=== PATIENT | female | born 1940 | race Caucasian/White ===

== ENCOUNTER → 2017-05-29 14:07 | Outpatient (CLI) | payer MEDICARE, SELFPAY ==
[2017-05-29 15:50] LABS: Absolute Lymphocyte Count 1.44 X10^3/ul (0.83-4.51); Absolute Neutrophil Count 3.7 X10^3/uL (2.0-7.7); Basophil# 0.01 X10^3/uL; Basophil% 0.2 % (0-1); Eosinophil# 0.15 X10^3/uL; Eosinophils% 2.6 % (0-5); Hematocrit 40.9 % (37-47); Hemoglobin 12.7 g/dl (12.0-15.0); Lymphocyte # 1.44 X10^3/ul (4.0); Lymphocyte % 24.9 % (19-41); Mean Corp Hgb Conc 31.1 g/gl (32-36); Mean Corpuscular Hgb 28.7 pg (27.0-32.0); Mean Corpuscular Volume 92.5 fL (81-99); Mean Platelet Vol. 10.8 fl (6.2-12.0); Monocyte# 0.45 X10^3/uL; Monocyte% 7.8 % (0-10); Neutrophil # 3.73 X10^3/uL (2.7-7.7); Neutrophil % 64.5 % (47-70); Platelet Count 211 K/mm3 (150-450); RBC Distribution Width CV 13.1 % (11.6-14.6); RBC Distribution Width SD 43.9 fl (35.1-43.9); Red Blood Count 4.42 M/mm3 (4.2-5.4); White Blood Count 5.8 K/mm3 (4.4-11.0)
[2017-05-29 16:04] LABS: POSITIVE COUNT NO; POSITIVE DIFFERENTIAL NO; POSITIVE MORPHOLOGY NO
[2017-05-29 16:14] LABS: Anion Gap 6 (5-15); BUN 30 mg/dL (7-18); BUN/Creat Ratio 48.5 RATIO (10-20); Calcium,Total 8.9 mg/dL (8.5-10.1); Chloride 104 mmol/L (98-107); Creatinine, Serum 0.62 mg/dL (0.55-1.02); EST Glomerular Filtration Rate 100 mL/min (>60); Est Glom Filt Rate - Afr Amer 121 mL/min (>60); Ferritin 23 ng/mL (8-252); Glucose 94 mg/dL (74-106); Iron 70 ug/dL (50-170); Potassium 3.7 mmol/L (3.5-5.1); Sodium Level 140 mmol/L (136-145); T4 Free Direct 1.01 ng/dL (0.76-1.46)
== END ==
PROVIDERS: Family Provider Family Medicine; PCP Family Medicine; Visit Provider Family Medicine
DX: E03.9 Hypothyroidism, unspecified (principal); D64.9 Anemia, unspecified; E87.6 Hypokalemia; I10 Essential (primary) hypertension
CPT/HCPCS: 36415; 80048; 82728; 83540; 84439; 84443; 85025

== ENCOUNTER → 2017-06-04 08:12 | Outpatient (CLI) | payer MEDICARE, SELFPAY ==
--- NOTE | 2017-06-04 08:13 | NM_ITS ---
CLINICAL: 76-year-old female with reported history of traumatic fall and painful left foot. LIMITED 99m Tc MDP THREE PHASE BONE SCINTIGRAPHY COMPARISON: None available FINDINGS: Following the intravenous administration of 21.0 mCi of 99m Tc MDP, three-phase bone acquisitions of the distal lower extremities reveal: 1. The flow and immediate static blood pool acquisitions demonstrate arterial and venous phase hyperemia manifest in the region of the medial compartment of the left midfoot. 2. Delayed images depict focal increased tracer concentration noted in the region of the first cuneiform tarsal bone of the left midfoot correlating with the flow and blood pool changes. 3. Enhanced uptake is defined in the lateral compartment of the right midfoot on delayed projections in the distribution of the cuboid tarsal bone and to lesser extent first metatarsal-phalangeal articulation of the right forefoot, the interphalangeal articulation of the first digit of the left forefoot, distal interphalangeal articulation of the left forefoot, lateral compartment of the left ankle, third cuneiform and cuboid tarsal bones of the left midfoot. 4. The remaining limited skeletal structures are scintigraphically unremarkable. NM/Bone Scan Three Phase IMPRESSION: 1. The increase in radiopharmaceutical concentration identified in the region of the first cuneiform tarsal bone of the left midfoot on the flow, blood pool and delayed acquisitions is consistent with trauma-fracture and/or traumatic synovial inflammation. 2. 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 Previous trauma-fracture may be another explanation for uptake in the right midfoot-cuboid tarsal bone secondary to the intensity of uptake. Electronically Signed: Mahendra Herrmann DO at 11:43 EST Tel , Service support ,
== END ==
PROVIDERS: Family Provider Family Medicine; PCP Family Medicine; Visit Provider Family Medicine
DX: M79.672 Pain in left foot (principal)
CPT/HCPCS: 78315

== ENCOUNTER 2017-06-07 00:49 | Emergency (ER) | payer MEDICARE, SELFPAY ==
[2017-06-07 00:51] VITALS: BP 132/80; PULSE 86; RESP 18; TEMP 36.9; O2SAT 99; BMI 37.5
--- NOTE | 2017-06-07 01:14 | ED.VISSUMM ---
- ER Visit Summary Date of Service: 06/07/17 Chief Complaint: Left foot pain History of Present Illness: The patient is a [address] Gamboa and Yeyo Benitez. She reports that she has left foot pain began approximately 3 months ago. It is a sharp, stabbing pain that is 10 out of 10 severity. Is worsened by movement and walking. States that it is unrelieved by Tylenol. When asked about his paresthesias in the area she reports just a tad.. States that she has had x-rays and had a bone density test yesterday. No personal or family history of DVT. No calf pain. No ankle swelling. No chest pain. Physical Examination: Vitals: Stable. Afebrile. General: Well-nourished and well-developed. Head: Normocephalic atraumatic. Neck: Supple, no lymphadenopathy. No JVD. Nontender. Cardiovascular: Regular rate and rhythm. No murmurs. Respiratory: No respiratory distress. Clear to auscultation bilaterally. Abdominal: Soft, nontender, nondistended, normal bowel sounds. No guarding, rebound, or peritoneal signs. Back: Nontender. Extremities: Mild tenderness palpation to the medial side of her foot. No rash. No swelling. No edema. Calf tenderness. 2+ dorsalis pedis pulse. Skin: Normal color, no rash. Neurologic: Alert and oriented ?3. Cranial nerves II through XII are intact. Normal strength and sensation. Psych: Normal affect. Emergency Department Course and Treatment: Patient was treated with [place]. This time I do not think a lower extremity Doppler is indicated. Treatment Plan: She will be discharged with [place] and Colace. Instructed to follow-up Dr. Gamboa and/or Dr. Daugherty this week for further evaluation. Return to the emergency department for any worsening symptoms. Disposition: To home in improved and stable condition. Impression: 1. Chronic left foot pain. This note was generated with [employer] dictation software. It may contain incorrect words, spelling, and punctuation that were not noted in review of the chart prior to signing ED Disposition - Plan for ED Patient: Disposition: Home or Assisted Living Chief Complaint: Lower Extremity Injury Instructions: What Is Peripheral Neuropathy? Prescriptions: Hydrocodone Bitart/Apap 5-325 [[place] 5/325] 1 - 2 tablet PO Q4H PRN PRN 3 Days #20 tablet PRN Reason: Pain Docusate Sodium [[place]ace] 100 mg PO DAILY #20 capsule Referrals: Mc Denise MD [Primary Care Provider] - 1-2 Days if not improving Nimo Daugherty DPM [STAFF PHYSICIAN] - As soon as possible
--- NOTE | 2017-06-07 01:18 | ED.DCSUM_ITS ---
- ER Visit Summary Date of Service: 06/07/17 Chief Complaint: Left foot pain History of Present Illness: The patient is a [address] Gamboa and Yeyo Benitez. She reports that she has left foot pain began approximately 3 months ago. It is a sharp, stabbing pain that is 10 out of 10 severity. Is worsened by movement and walking. States that it is unrelieved by Tylenol. When asked about his paresthesias in the area she reports just a tad.. States that she has had x-rays and had a bone density test yesterday. No personal or family history of DVT. No calf pain. No ankle swelling. No chest pain. Physical Examination: Vitals: Stable. Afebrile. General: Well-nourished and well-developed. Head: Normocephalic atraumatic. Neck: Supple, no lymphadenopathy. No JVD. Nontender. Cardiovascular: Regular rate and rhythm. No murmurs. Respiratory: No respiratory distress. Clear to auscultation bilaterally. Abdominal: Soft, nontender, nondistended, normal bowel sounds. No guarding, rebound, or peritoneal signs. Back: Nontender. Extremities: Mild tenderness palpation to the medial side of her foot. No rash. No swelling. No edema. Calf tenderness. 2+ dorsalis pedis pulse. Skin: Normal color, no rash. Neurologic: Alert and oriented ?3. Cranial nerves II through XII are intact. Normal strength and sensation. Psych: Normal affect. Emergency Department Course and Treatment: Patient was treated with [place]. This time I do not think a lower extremity Doppler is indicated. Treatment Plan: She will be discharged with [place] and Colace. Instructed to follow-up Dr. Gamboa and/or Dr. Daugherty this week for further evaluation. Return to the emergency department for any worsening symptoms. Disposition: To home in improved and stable condition. Impression: 1. Chronic left foot pain. This note was generated with [employer] dictation software. It may contain incorrect words, spelling, and punctuation that were not noted in review of the chart prior to signing ED Disposition - Plan for ED Patient: Disposition: Home or Assisted Living Chief Complaint: Lower Extremity Injury Instructions: What Is Peripheral Neuropathy? Prescriptions: Hydrocodone Bitart/Apap 5-325 [[place] 5/325] 1 - 2 tablet PO Q4H PRN PRN 3 Days # 20 tablet PRN Reason: Pain Docusate Sodium [[place]ace] 100 mg PO DAILY #20 capsule Referrals: Mc Denise MD [Primary Care Provider] - 1-2 Days if not improving Nimo Daugherty DPM [STAFF PHYSICIAN] - As soon as possible
[2017-06-07 01:30] VITALS: BP 126/75; PULSE 80; RESP 17; O2SAT 99
[2017-06-07] MEDS: HYDROcodone Bitartrate/Apap 5/325 Tablet PO ×2 (01:58)
[2017-06-07 02:09] VITALS: BP 130/45; PULSE 80; RESP 18; O2SAT 98
== END 2017-06-07 02:10 | disposition home or self-care (01) ==
LOC: ED 01:15
PROVIDERS: Emergency Provider Emergency Medicine; Family Provider Family Medicine; PCP Family Medicine
DX: M79.672 Pain in left foot (principal); G89.29 Other chronic pain; R20.2 Paresthesia of skin; R11.0 Nausea; I25.10 Atherosclerotic heart disease of native coronary artery without angina pectoris; I10 Essential (primary) hypertension; E78.00 Pure hypercholesterolemia, unspecified; G62.9 Polyneuropathy, unspecified; Z79.01 Long term (current) use of anticoagulants; Z79.899 Other long term (current) drug therapy
CPT/HCPCS: 99283

== ENCOUNTER → 2017-06-29 09:47 | Outpatient (CLI) | payer MEDICARE, SELFPAY ==
--- NOTE | 2017-06-29 09:56 | MRI_ITS ---
STUDY: MRI LEFT ANKLE WITHOUT CONTRAST REASON FOR EXAM: Female, 76 years old. Medial ankle pain with swelling x3 months which is accentuated by weightbearing. TECHNIQUE: Standardized fat and water weighted pulse sequences were obtained in all 3 orthogonal planes. COMPARISON: None. FINDINGS: There is edema extending along the anterior aspect of the distal tibia and dorsal medial mid foot region. There is a complete rupture of the tibialis anterior tendon which is detached from its distal insertion and a cephalad retracted approximately 48 mm. There is severe tendinosis, intrasubstance degeneration, with a mop end morphology of the torn retracted tendon edge (axial STIR series 11, image 6). Normal extensor hallucis longus tendon. Normal extensor digitorum longus tendons. There is also morphology of the posterior tibialis tendon with elongation in the anterior dimension and narrowing in the transverse dimension consistent with tendinosis and tenosynovitis. Normal flexor digitorum longus tendon. Normal flexor hallucis longus tendon. Normal peroneus longus and brevis tendons. Normal Achilles tendon and teno-osseous insertion. There is a 6 mm enthesophyte at the teno-osseous insertion of the Achilles tendon. There is fusiform thickening of the central cord of the plantar fascia, without a plantar fasciitis or plantar fascial tear, consistent with plantar fascial degeneration (sagittal T1 series 9, image 11). Normal plantar calcaneal tubercles. Normal intrinsic muscles of the rearfoot. Normal distal tibiofibular syndesmotic ligamentous complex. There is scarring with thickening of the anterior talofibular ligament consistent with a remote sprain. Normal subtalar ligaments and sinus tarsi. Normal deltoid ligamentous complexes. Normal plantar calcaneonavicular (spring) ligament. Normal tibiotalar articulation. Normal talar dome. Normal subtalar articulations. There is a joint effusion of the talonavicular articulation with capsular distension. Normal calcaneocuboid articulation. Normal navicular-cuneiform articulations. MRI/Lower Ext Joint Only (Routine) IMPRESSION: 1. Complete rupture of the distal insertion of tibialis anterior tendon which is cephalad retracted approximately 40 mm with severe tendinosis, intrasubstance degeneration with a mop end morphology. 2. Posterior tibialis tendinosis and tenosynovitis. 3. Enthesophyte at the teno-osseous insertion of Achilles tendon. 4. Plantar fascial degeneration with fusiform thickening. 5. Scarring of the anterior talofibular ligament consistent with a remote ankle sprain. 6. Talonavicular joint effusion. Electronically Signed: Thierry Darling DO at 11:56 EST Tel , Service support ,
== END ==
PROVIDERS: Family Provider Family Medicine; PCP Family Medicine; Visit Provider Podiatrist
DX: S86.212A Strain of muscle(s) and tendon(s) of anterior muscle group at lower leg level, left leg, initial encounter (principal); X58.XXXA Exposure to other specified factors, initial encounter
CPT/HCPCS: 73721

== ENCOUNTER → 2017-07-10 13:06 | Outpatient (CLI) | payer MEDICARE, SELFPAY ==
[2017-07-10 13:29] LABS: Anion Gap 6 (5-15); BUN 26 mg/dL (7-18); BUN/Creat Ratio 36.5 RATIO (10-20); Calcium,Total 8.9 mg/dL (8.5-10.1); Chloride 107 mmol/L (98-107); Creatinine, Serum 0.71 mg/dL (0.55-1.02); EST Glomerular Filtration Rate 85 mL/min (>60); Est Glom Filt Rate - Afr Amer 102 mL/min (>60); Glucose 120 mg/dL (74-106); Potassium 4.4 mmol/L (3.5-5.1); Sodium Level 143 mmol/L (136-145)
== END ==
PROVIDERS: Family Provider Family Medicine; PCP Family Medicine; Visit Provider Internal Medicine Cardiovascular Disease
DX: I25.10 Atherosclerotic heart disease of native coronary artery without angina pectoris (principal); E87.6 Hypokalemia
CPT/HCPCS: 80048

== ENCOUNTER → 2017-12-31 13:50 | Outpatient (CLI) | payer MEDICARE, SELFPAY | PROVIDERS: Visit Provider Family Medicine | DX: N39.0 Urinary tract infection, site not specified (principal) | CPT/HCPCS: 87086; 87088 ==

== ENCOUNTER → 2018-04-09 10:50 | Outpatient (CLI) | payer MEDICARE, SELFPAY ==
[2018-04-09 12:48] LABS: Absolute Lymphocyte Count 1.24 X10^3/ul (0.83-4.51); Absolute Neutrophil Count 3.2 X10^3/uL (2.0-7.7); Basophil# 0.01 X10^3/uL; Basophil% 0.2 % (0-1); Eosinophil# 0.11 X10^3/uL; Eosinophils% 2.2 % (0-5); Hematocrit 41.5 % (37-47); Hemoglobin 13.4 g/dl (12.0-15.0); Lymphocyte # 1.24 X10^3/ul (4.0); Lymphocyte % 25.1 % (19-41); Mean Corp Hgb Conc 32.3 g/gl (32-36); Mean Corpuscular Hgb 30.3 pg (27.0-32.0); Mean Corpuscular Volume 93.9 fL (81-99); Monocyte# 0.42 X10^3/uL; Monocyte% 8.5 % (0-10); Neutrophil # 3.15 X10^3/uL (2.7-7.7); Neutrophil % 63.8 % (47-70); Platelet Count 207 K/mm3 (150-450); RBC Distribution Width CV 12.7 % (11.6-14.6); RBC Distribution Width SD 42.3 fl (35.1-43.9); Red Blood Count 4.42 M/mm3 (4.2-5.4); White Blood Count 4.9 K/mm3 (4.4-11.0)
[2018-04-09 13:02] LABS: POSITIVE COUNT NO; POSITIVE DIFFERENTIAL NO; POSITIVE MORPHOLOGY NO
[2018-04-09 14:10] LABS: Vitamin B12 356 pg/mL (211-911)
[2018-04-09 14:14] LABS: Anion Gap 9 (5-15); BUN 18 mg/dL (7-18); BUN/Creat Ratio 23.9 RATIO (10-20); Chloride 101 mmol/L (98-107); Creatinine, Serum 0.75 mg/dL (0.55-1.02); EST Glomerular Filtration Rate 79 mL/min (>60); Est Glom Filt Rate - Afr Amer 96 mL/min (>60); Glucose 97 mg/dL (74-106); Potassium 3.7 mmol/L (3.5-5.1); Sodium Level 140 mmol/L (136-145); T4 Free Direct 1.19 ng/dL (0.76-1.46); Thyroid Stim Hormone (TSH) 1.33 uIU/mL (0.358-3.74)
== END ==
PROVIDERS: Family Provider Family Medicine; PCP Family Medicine; Visit Provider Family Medicine
DX: R41.3 Other amnesia (principal); E03.9 Hypothyroidism, unspecified; E87.6 Hypokalemia; I10 Essential (primary) hypertension
CPT/HCPCS: 36415; 80048; 82607; 84439; 84443; 85025

== ENCOUNTER → 2018-05-21 10:44 | Outpatient (CLI) | payer MEDICARE, SELFPAY ==
--- NOTE | 2018-05-21 10:49 | BI_ITS ---
MAMMOGRAPHY - BILATERAL SCREENING REASON FOR EXAM: Female, 77 years old. Routine annual screening examination. PERTINENT HISTORY: Non-contributory. TECHNIQUE: Digital bilateral breast nacni (3D mammographic acquisition) in the CC and MLO projections. 2-D mediolateral oblique (MLO) and craniocaudad (CC) views of both breasts were obtained. CAD: Full Field Digital Mammography with Computer Added Detection was performed. COMPARISON: Comparison is made with prior study dated March 13, 2017. FINDINGS: Breast Composition: The breasts are almost entirely fatty. There are no dominant masses or suspicious calcifications. Stable 5 mm well-defined nodule in the axillary region of the right breast suggestive of a small lymph node. No other significant abnormalities are identified. There has been no significant change since the prior study. BI/SCREENING MAMM (CAD), BILAT IMPRESSION: Stable bilateral screening mammogram. Yearly follow-up mammogram recommended. (A) ASSESSMENT CATEGORY: BIRADS Category 2: Benign. A letter regarding these results will be sent to the patient by the facility within 30 days. Approximately 10% of breast cancers are not detected by mammography. A normal mammogram should not delay biopsy of a clinically suspicious abnormality. [id number] Electronically Signed: Pardeep Long MD at 13:30 EST , Service support ,
== END ==
PROVIDERS: Family Provider Family Medicine; PCP Family Medicine; Referring Provider Family Medicine; Visit Provider Family Medicine
DX: Z12.31 Encounter for screening mammogram for malignant neoplasm of breast (principal)
CPT/HCPCS: 77063; 77067

== ENCOUNTER → 2018-06-28 14:48 | Outpatient (CLI) | payer MEDICARE, SELFPAY ==
--- NOTE | 2018-06-28 14:55 | RAD_ITS ---
STUDY: X-RAY - THORACIC SPINE REASON FOR EXAM: Female, 77 years old. Fall TECHNIQUE: 4 view(s) of the thoracic spine were obtained. COMPARISON: None. FINDINGS: There is no evidence of fracture or dislocation in the thoracic spine. The vertebral body heights are well-maintained. There are mild degenerative changes. RAD/Thoracic Spine 3 Views IMPRESSION: No fracture or dislocation in the thoracic spine. Mild degenerative change. Electronically Signed: Lorenzo Rojas, at 15:30 EST Tel , Service support ,
--- NOTE | 2018-06-28 15:05 | RAD_ITS ---
STUDY: X-RAY - LUMBAR SPINE REASON FOR EXAM: Female, 77 years old. Fall TECHNIQUE: 3 view(s) of the lumbar spine were obtained. COMPARISON: None FINDINGS: There is no evidence of fracture or dislocation in the lumbar spine. The vertebral body heights are well-maintained. There are mild degenerative changes in the lower lumbar spine with disc space narrowing and facet hypertrophy. RAD/Lumbar Spine 2 or 3 Views IMPRESSION: No fracture or dislocation in the lumbar spine. Mild degenerative changes in the lower lumbar spine. Electronically Signed: Lorenzo Rojas, at 15:31 EST Tel , Service support ,
== END ==
PROVIDERS: Family Provider Family Medicine; PCP Family Medicine; Referring Provider Anesthesiology Pain Medicine; Visit Provider Anesthesiology Pain Medicine
DX: M54.9 Dorsalgia, unspecified (principal); W19.XXXA Unspecified fall, initial encounter
CPT/HCPCS: 72072; 72100

== ENCOUNTER → 2018-12-07 | Outpatient (CLI) | payer MEDICARE, SELFPAY ==
[2018-12-07 17:34] LABS: Absolute Lymphocyte Count 1.73 X10^3/uL (0.83-4.51); Absolute Neutrophil Count 2.6 X10^3/uL (2.0-7.7); Basophil# 0.01 X10^3/uL; Basophil% 0.2 % (0-1); Eosinophil# 0.13 X10^3/uL; Eosinophils% 2.6 % (0-5); Hemoglobin 13.5 g/dL (12.0-15.0); Lymphocyte # 1.73 X10^3/ul (4.0); Lymphocyte % 34.4 % (19-41); Mean Corp Hgb Conc 32.1 g/dL (32-36); Mean Corpuscular Hgb 29.9 pg (27.0-32.0); Mean Corpuscular Volume 92.9 fL (81-99); Mean Platelet Vol. 11.8 fl (6.2-12.0); Monocyte# 0.51 X10^3/uL; Monocyte% 10.1 % (0-10); NRBC Flagged by Analyzer 0 % (0-5); Neutrophil # 2.64 X10^3/uL (2.7-7.7); Neutrophil % 52.5 % (47-70); Platelet Count 190 K/mm3 (150-450); RBC Distribution Width CV 12.4 % (11.6-14.6); RBC Distribution Width SD 42.5 fl (35.1-43.9); Red Blood Count 4.52 M/mm3 (4.2-5.4)
[2018-12-07 17:58] LABS: ALB/GLOB Ratio 0.9 RATIO (0.9-2.4); AST(SGOT) 29 U/L (15-37); Alanine Aminotransfer ALT/SGPT 33 U/L (13-56); Albumin, Serum 3.4 g/dL (3.2-5.0); Alkaline Phosphatase 106 U/L (45-117); Anion Gap 9 (5-15); BUN 25 mg/dL (7-18); BUN/Creat Ratio 30.2 RATIO (10-20); Calcium,Total 9.2 mg/dL (8.5-10.1); Chloride 103 mmol/L (98-107); Creatinine, Serum 0.83 mg/dL (0.55-1.02); EST Glomerular Filtration Rate 71 mL/min (>60); Est Glom Filt Rate - Afr Amer 86 mL/min (>60); Globulin 3.9 g/dL (2.2-4.2); Glucose 101 mg/dL (74-106); Potassium 3.7 mmol/L (3.5-5.1); Protein, Total 7.3 g/dL (6.4-8.2); Sodium Level 140 mmol/L (136-145); T4 Free Direct 1.25 ng/dL (0.76-1.46); Vitamin B12 530 pg/mL (211-911)
== END | disposition home or self-care (01) ==
LOC: BFHLAB 15:29
PROVIDERS: Family Provider Family Medicine; PCP Family Medicine; Visit Provider Family Medicine
DX: E03.9 Hypothyroidism, unspecified (principal); I10 Essential (primary) hypertension; R60.9 Edema, unspecified; G62.9 Polyneuropathy, unspecified
CPT/HCPCS: 36415; 80053; 82607; 84439; 84443; 85025

== ENCOUNTER 2019-08-04 15:07 | Emergency (ER) | payer MEDICARE, SELFPAY ==
[2019-08-04 15:08] VITALS: BP 147/89; PULSE 97; RESP 16; TEMP 36.6; O2SAT 99; BMI 38.1
--- NOTE | 2019-08-04 15:17 | EKG12_ITS ---
Test Reason : CONFUSION Blood Pressure : / mmHG Vent. Rate : 093 BPM Atrial Rate : 093 BPM P-R Int : 172 ms QRS Dur : 078 ms QT Int : 368 ms P-R-T Axes : 074 -38 076 degrees QTc Int : 457 ms Sinus rhythm with occasional Premature ventricular complexes Left axis deviation Septal infarct , age undetermined Abnormal ECG Confirmed by JULIET SANCHEZ, BERENICE ([id number]), make up editor BOB TINSLEY ([id number]) on 08/08/2019 8:33:55 AM Referred By: MERY Confirmed By:BERENICE CHUNG MD
[2019-08-04 15:30] VITALS: O2SAT 96
--- NOTE | 2019-08-04 15:32 | CT_ITS ---
STUDY: CT BRAIN WITHOUT CONTRAST REASON FOR EXAM: Female, 79 years old. CONFUSION-SENT BY PCP HALLUCINATIONS/FALLS RADIATION DOSAGE (If Supplied By Facility): CTDIvol = ( 44.99 ) mGy, DLP = ( 762.36 ) mGycm TECHNIQUE: Transaxial CT imaging of the brain was performed without administration of intravenous contrast material. Individualized dose optimization techniques were used for this CT. COMPARISON: Prior study of 11/30/2016 FINDINGS: Normal soft tissue structures. Normal calvarium. There is mild cerebral atrophy with widening of the extra-axial spaces and ventricular dilatation. There are areas of decreased attenuation within the white matter tracts of the supratentorial brain, consistent with microvascular disease changes. Normal basal ganglia and thalami. Normal brainstem. Normal cerebellum. There is no intracranial hemorrhage. There are no findings of an acute ischemic infarction. Normal visualized paranasal sinuses. CT/Brain/Head without Contrast IMPRESSION: Chronic involutional changes of the brain. Electronically Signed: Carmine Brennan MD at 16:37 EDT , Service support ,
[2019-08-04] MEDS: 0.9% Normal Saline 1,000 ML 150 ML IV (15:33)
--- NOTE | 2019-08-04 15:33 | ED.VIS.GEN ---
History of Present Illness Chief Complaint: Confusion Informant: Patient Onset: Month(s) Maximum Severity: Mild Narrative: National coronavirus emergency in effect patient no exposures Patient complains for a month or so she has been hallucinating seeing rabbits on her porch that are not there not there other strange things in the home that are not there she lives with her son, she indicates these hallucinations seem visual. They can occur at any point in the day, they come and go, she has had them for a month at least possibly more, she has no headache numbness weakness paresthesias chest pain abdominal pain she is eating and drinking well no fever no cough no shortness of breath, she spoke with her physicians today and was asked to come in for evaluation. 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 does not recall recently falling and hitting her head, she is able to basically wake dress herself execute normal daily activities on a routine fashion, she is oriented x3 she knows the date the year the president the [facility] she is smiling and laughing as she gives a history she denies any complaints at this time Past Medical History - Allergies and Home Meds Allergies/Adverse Reactions: Allergies tramadol [From Ultram] Adverse Reaction (Verified 08/04/19 15:11) Other BEE STINGS Allergy (Severe, Uncoded 08/04/19 15:11) Anaphylaxis Primary Care Physician: Mc Denise MD [Primary Care Provider] - Past Medical History: - - Hypothyroidism and as above Surgical History: appendectomy, hysterectomy - Partial, total knee arthroplasty, tonsillectomy - Tonsillectomy was performed in childhood., - - Lumbar laminectomy, 4 years ago. History of cardiac stent placement. Left total knee replacement June 2014. She also has undergone umbilical hernia repair, hysterectomy, tonsillectomy, and hemorrhoidectomy. Smoking Status: Never smoker - Family History Paternal Family History: Reports: - - , heart disease Maternal Family History: Reports: - - , Alzheimer's disease, age 81. The patient's father at age of 47 from a myocardial infarction. Review of Systems General: Denies: Chills, Fever, Sweats Eyes: Denies: Visual changes - bilaterally, Diplopia ENT: Denies: Rhinorrhea, Sore throat Cardiovascular: Denies: Chest pain, Palpitations Respiratory: Denies: Dyspnea, Cough, Dyspnea on exertion Gastrointestinal: Denies: Abdominal pain, Nausea, Vomiting, Diarrhea, Melena, Hematochezia Genitourinary: Denies: Dysuria, Hematuria, Frequency Musculoskeletal: Denies: Back pain, Extremity Pain Skin: Denies: Rash, Wounds Neurological: Reports: Numbness. Denies: Headache, Weakness Physical Exam Vital Signs/Narrative: Vital Signs Temp Pulse Resp BP Pulse Ox 08/04/19 15:30 96 08/04/19 15:08 97.8 F 97 16 147/89 H 99 General: Well nourished, Well developed, No Acute Distress Head: Normocephalic, Atraumatic Eyes: Perrl, EOMI ENT: Moist mucous membranes, No rhinorrhea Neck: Supple, Nontender Cardiovascular: Regular rate, Regular rhythm, No murmurs Respiratory: No distress, CTA bilaterally, Chest nontender Abdomen: Soft, Nontender, Nondistended, Normal bowel sounds Back: Nontender, Normal Inspection Extremities: Nontender, No edema Skin: Normal color, No rash Neurological: Alert, Oriented x3, Cranial nerves II-XII grossly intact, Normal Strength, Normal Sensation, - - Her NIH is 0 she is awake alert answering questions appropriately there is no hallucinations now nothing seems to trigger these visual hallucinations, she indicates she is been feeling well otherwise this is been going on for about a month she indicates he is able to execute all of her daily activities Psychological: Normal affect, Normal Mood Diagnostic/Tx/Re-eval - Medical Decision Making Differentials extensive given all the above screening labs UA CT scan, her vitals are unremarkable she assures that she feels at baseline now EKG shows a sinus rhythm some PVCs rate of about 90 no acute injury pattern intervals within normal range, chest x-ray head CT all labs are unremarkable, had the symptoms for a month she is awake alert now that her intermittent we discussed inpatient versus outpatient management discussed all the above with her at this time he is comfortable discharge home following up with her outpatient providers in the next few days Home stable Final impression intermittent confusional episodes etiology unclear ED Disposition - Plan for ED Patient: Diagnosis: Confusion Instructions: ED Confusion Referrals: Mc Denise MD [Primary Care Provider] -
[2019-08-04 15:44] LABS: Absolute Lymphocyte Count 1.81 X10^3/uL (0.83-4.51); Absolute Neutrophil Count 2.6 X10^3/uL (2.0-7.7); Basophil# 0.01 X10^3/uL; Basophil% 0.2 % (0-1); Eosinophil# 0.21 X10^3/uL; Eosinophils% 4.1 % (0-5); Hematocrit 41.4 % (37-47); Hemoglobin 13.4 g/dL (12.0-15.0); Lymphocyte # 1.81 X10^3/ul (4.0); Lymphocyte % 35.1 % (19-41); Mean Corp Hgb Conc 32.4 g/dL (32-36); Mean Corpuscular Hgb 29.5 pg (27.0-32.0); Mean Platelet Vol. 10.4 fl (6.2-12.0); Monocyte% 9.7 % (0-10); NRBC Flagged by Analyzer 0 % (0-5); Neutrophil % 50.5 % (47-70); Platelet Count 182 K/mm3 (150-450); RBC Distribution Width CV 12.6 % (11.6-14.6); RBC Distribution Width SD 41.5 fl (35.1-43.9); Red Blood Count 4.55 M/mm3 (4.2-5.4); White Blood Count 5.2 K/mm3 (4.4-11.0)
[2019-08-04 16:07] LABS: Mucous, Urine 0 SEEN /hpf (<or=2+)
[2019-08-04 16:15] LABS: Anion Gap 4 (5-15); BUN 28 mg/dL (7-18); BUN/Creat Ratio 37.4 RATIO (10-20); Calcium,Total 9.1 mg/dL (8.5-10.1); Chloride 106 mmol/L (98-107); Creatinine, Serum 0.75 mg/dL (0.55-1.02); EST Glomerular Filtration Rate 80 mL/min (>60); Est Glom Filt Rate - Afr Amer 96 mL/min (>60); Estimated Creatinine Clearance 41.72 ml/min; Glucose 93 mg/dL (74-106); Potassium 3.1 mmol/L (3.5-5.1); Sodium Level 140 mmol/L (136-145)
--- NOTE | 2019-08-04 16:22 | RAD_ITS ---
STUDY: X-RAY CHEST REASON FOR EXAM: Female, 79 years old. confusion. no chest complaint TECHNIQUE: AP portable COMPARISON: January 13, 2017 FINDINGS: There is minor scarring at the left base. No acute infiltration is observed There is no demonstrated pleural abnormality. Normal size heart. Normal mediastinum and judith. Normal visualized pulmonary arteries. Mildly calcified aortic arch and descending thoracic aorta. Dorsal spine and shoulders demonstrate mild degenerative change Normal visualized ribs, clavicles, and shoulders. There is no demonstrated abnormality of the visualized soft tissue structures of the upper abdomen. No significant changes since prior exam RAD/Chest 1 View (Portable) IMPRESSION: No acute cardiopulmonary pathology Electronically Signed: Jorge L Aponte MD at 16:36 EDT , Service support ,
[2019-08-04 16:38] VITALS: BP 124/93; PULSE 88; RESP 14; O2SAT 99
[2019-08-04 16:43] LABS: Color, Urine Yellow (Yellow); Glucose, Dipstick Normal (Normal); Ketone-Dipstick 5 mg/dl (Negative); Urine Bilirubin Dipstick Negative (Negative); Urine Clarity Cloudy (Clear)
[2019-08-04 16:44] LABS: Leukocyte Esterase-Dipstick 500 /ul (Negative); Nitrite-Dipstick NEGATIVE (Negative); Occult Blood-Urine 25 /ul (Negative); Protein-Dipstick 30 mg/dl (Negative); Urine Urobilinogen Normal (Normal)
[2019-08-04 17:01] LABS: Squamous Epithelial Cells - UA 25-50 SEEN /hpf (5-10)
[2019-08-04 17:02] LABS: Bacteria 2+ /hpf (None Seen); Transitional Epithelial - Ur 0-5 SEEN /hpf (0-5); White Blood Cells 50-100 SEEN /hpf (0-5)
[2019-08-04 17:03] LABS: Red Blood Cells-Urine 0-5 SEEN /hpf (0-5)
[2019-08-04 17:33] VITALS: BP 136/95; PULSE 85; RESP 22; O2SAT 100
== END 2019-08-04 17:36 | disposition home or self-care (01) ==
PROVIDERS: Emergency Provider Emergency Medicine; PCP Family Medicine
DX: R41.0 Disorientation, unspecified (principal); G62.9 Polyneuropathy, unspecified; I49.3 Ventricular premature depolarization; R44.1 Visual hallucinations; E03.9 Hypothyroidism, unspecified; Z91.81 History of falling; Z79.899 Other long term (current) drug therapy
CPT/HCPCS: 70450; 71045; 80048; 81001; 83880; 84484; 85025; 87086; 87088; 93005; 96360; 96361; 99284; J7030; A4216

== ENCOUNTER 2019-10-08 05:00 | Emergency (ER) | payer MEDICARE, SELFPAY ==
[2019-10-08 05:02] VITALS: BP 167/100; PULSE 105; RESP 18; TEMP 37.1; O2SAT 96; BMI 37.7
--- NOTE | 2019-10-08 05:17 | EKG12_ITS ---
Test Reason : ABDOMINAL PAIN Blood Pressure : / mmHG Vent. Rate : 091 BPM Atrial Rate : 091 BPM P-R Int : 178 ms QRS Dur : 082 ms QT Int : 382 ms P-R-T Axes : 040 -42 058 degrees QTc Int : 469 ms Sinus rhythm with occasional Premature ventricular complexes Left axis deviation Anterior AR, age undetermined Abnormal ECG Confirmed by STONE SANCHEZ, VINCENT ([id number]), department editor LOGAN JARQUIN ([id number]) on 10/12/2019 1:03:32 PM Referred By: DEAN Confirmed By:VINCENT RITTER MD
--- NOTE | 2019-10-08 05:18 | ED.VIS.GI ---
History of Present Illness Chief Complaint: Abd Pain Informant: Patient - Abdominal Pain/Flank Pain Onset: Yesterday - around 12 hrs ago Context: Gradual Onset Timing: Intermittent Quality: Aching Location: Epigastric Current Severity: Mild Maximum Severity: Moderate Worsened by: Nothing Relieved by: - - vomiting - Nausea/Vomiting/Emesis GI Symptom: Nausea, Vomiting Onset: Yesterday Quality: Nonbilious. Negative for: Blood streaks, Coffee ground Severity: Moderate - all night - Diarrhea/Melena/Hematochezia GI Symptom: Negative for: Diarrhea, Melena, Hematochezia Associated Symptoms: Negative for: Dysuria, Frequency, Hematuria, Urgency Narrative: Patient states she started vomiting yesterday evening, associated with epigastric discomfort and mid chest discomfort. No radiation, no pain into her back. The pain in her abdomen is mostly epigastric but is across her upper abdomen at times. No melena, bright red blood per rectum, or diarrhea. She states when she vomits, the chest pain then resolves temporarily until it returns. It has been off and on all night. Lying down makes her chest more bothersome, and makes her more nauseated more likely to vomit. States she has had this chest discomfort before, it feels like reflux, burning, but she has never vomited with it. No coffee-ground emesis. No anticoagulants. - Past Medical History (1) Debility Status: Chronic (2) S/P TKR (total knee replacement) Status: Chronic Comment: right (3) Congestive heart failure (CHF) Status: Chronic (4) Coronary artery arteriosclerosis Status: Chronic (5) Edema, lower extremity Status: Chronic (6) Hypercholesterolemia Status: Chronic (7) Hypertension Status: Chronic (8) Hypothyroidism Status: Chronic (9) Neuropathy Status: Chronic (10) Osteoarthritis Status: Chronic (11) Restless leg syndrome Status: Chronic Past Medical History - Allergies and Home Meds Allergies/Adverse Reactions: Allergies tramadol [From Ultram] Adverse Reaction (Verified 10/08/19 05:02) Other BEE STINGS Allergy (Severe, Uncoded 10/08/19 05:02) Anaphylaxis Primary Care Physician: Mc Denise MD [Primary Care Provider] - Surgical History: appendectomy, hysterectomy - Partial, total knee arthroplasty, tonsillectomy - Tonsillectomy was performed in childhood., - - Lumbar laminectomy, 4 years ago. History of cardiac stent placement. Left total knee replacement June 2014. She also has undergone umbilical hernia repair, hysterectomy, tonsillectomy, and hemorrhoidectomy. Smoking Status: Never smoker - Family History Paternal Family History: Reports: - - , heart disease Maternal Family History: Reports: - - , Alzheimer's disease, age 81. The patient's father at age of 47 from a myocardial infarction. Review of Systems General: Denies: Chills, Fever, Sweats Eyes: Denies: Visual changes - bilaterally, Diplopia ENT: Denies: Bilateral ear pain, Rhinorrhea, Sore throat Cardiovascular: Reports: Chest pain. Denies: Palpitations Respiratory: Reports: Cough. Denies: Dyspnea, Sputum, Dyspnea on exertion Gastrointestinal: Reports: Abdominal pain, Nausea, Vomiting. Denies: Diarrhea, Melena, Hematochezia Genitourinary: Denies: Dysuria, Hematuria, Frequency Musculoskeletal: Reports: Swelling - Both legs, chronic. Denies: Neck pain, Back pain, Extremity Pain Skin: Denies: Rash, Wounds Neurological: Denies: Headache, Weakness, Numbness Physical Exam Vital Signs/Narrative: Vital Signs Temp Pulse Resp BP Pulse Ox 10/08/19 05:02 98.8 F 105 H 18 167/100 H 96 Inital Vital Signs reviewed: Yes General: Well nourished, Well developed, Obese, No Acute Distress Head: Normocephalic, Atraumatic Eyes: Perrl, EOMI ENT: Moist mucous membranes, No rhinorrhea Neck: Supple, Nontender, No lymphadenopathy, No JVD Cardiovascular: Regular rate, Regular rhythm, No murmurs, Tachycardia Respiratory: No distress, CTA bilaterally, Chest nontender Abdomen: Soft, Nondistended, Normal bowel sounds, Tender - Epigastric only. Negative for: Guarding, Rebound tenderness Back: Nontender, Normal Inspection. Negative for: CVA tenderness Extremities: Nontender, Edema - 2+ bilateral lower extremity to the knees. Negative for: Calf Tenderness Skin: Normal color, No rash, No Trauma Neurological: Alert, Oriented x3, Cranial nerves II-XII grossly intact, Normal Strength, Normal Sensation, Normal Gait Psychological: Normal affect, Normal Mood Diagnostic/Tx/Re-eval Clinical Impression(s) from Imaging Studies Chest X-Ray 10/08/19 05:40 IMPRESSION: Mild pulmonary congestion. Electronically Signed: Jade Cabral MD at 6:53 EDT , Service support , Abdomen/Pelvis CT 10/08/19 06:47 IMPRESSION: There is decreased attenuation of the liver consistent with steatosis. There is low attenuation lesion in segment #4 of liver measures 2.5 cm most likely representing a cyst. There is a small hiatal hernia. Electronically Signed: Ainsley Wu, at 7:38 EDT Tel , Service support , Laboratory Results 10/08/19 10/08/19 05:30 05:30 WBC 5.7 RBC 4.45 Hgb 13.0 Hct 40.8 MCV 91.7 MCH 29.2 MCHC 31.9 L RDW Std Deviation 42.6 RDW Coeff of Emili 12.7 Plt Count 194 MPV 10.3 Immature Gran % (Auto) 0.200 Neut % (Auto) 75.9 H Lymph % (Auto) 15.9 L [place] % (Auto) 6.4 Eos % (Auto) 1.2 Baso % (Auto) 0.4 Absolute Neuts (auto) 4.3 Absolute Lymphs (auto) 0.90 Nucleated RBC % 0 Sodium 138 Potassium 3.1 L Chloride 100 Carbon Dioxide 29.0 Anion Gap 9 BUN 22 H Creatinine 0.72 Estim Creat Clear Calc 41.72 Est GFR (MDRD) Af Amer 101 Est GFR (MDRD) Non-Af 83 BUN/Creatinine Ratio 30.5 H Glucose 123 H Calcium 9.1 Total Bilirubin 0.60 AST 28 ALT 34 Alkaline Phosphatase 102 Troponin I < 0.015 Total Protein 7.3 Albumin 3.1 L Globulin 4.2 Albumin/Globulin Ratio 0.7 L Lipase 36 L - Rhythm Strip Rhythm Strip: Sinus Rhythm Rate: 91 Ectopy: PVC(s) - EKG Initial EKG Interpretation: Sinus Rhythm, No Acute Injury Pattern, LAFB Prior: Unchanged - Medical Decision Making Labs are unremarkable including troponin, her EKG is unchanged showing a stable left axis. On my interpretation one-view portable chest x-ray is unremarkable as well, her and her lungs are clear. She was given Zofran, and a GI cocktail. The GI cocktail quickly eliminated her chest discomfort as expected, it sounds GI in etiology and not cardiac. Her epigastric discomfort was improved some, however then she continued to vomit. I did a bedside ultrasound of her gallbladder. She does not have a sonographic Palmer's, the gallbladder wall is 0.17 cm, within normal limits, and I see no shadowing stones. For this reason, I am obtaining a CT scan of the abdomen/pelvis for further evaluation and giving her Reglan along with some IV fluids. Her CT returned showing nothing acute. She has a hiatal hernia. She is in no distress. She is tolerating oral fluids, I feel good about discharging her home with nausea medication, making sure she is on a PPI, and advising close outpatient follow-up. ED Disposition - Plan for ED Patient: Disposition: Home or Assisted Living Diagnosis: Intermittent chest pain, Epigastric pain, Vomiting, Acute gastritis, Hiatal hernia Instructions: ED PEPTIC ULCER vs GASTRITIS, ED Hiatal Hernia Prescriptions: Pantoprazole Sodium [Protonix] 40 mg PO DAILY #30 tab Prescription Printed Ondansetron [Zofran Odt] 8 mg PO Q8H PRN PRN #20 tab PRN Reason: Nausea Prescription Printed Referrals: Mc eDnise MD [Primary Care Provider] - 3-5 Days if not improving
[2019-10-08] MEDS: Ondansetron 4 MG/2 ML Vial IV (05:32)
[2019-10-08] MEDS: Mag Hydrox/Al Hydrox/Simeth 30 ML UDC PO (05:32)
--- NOTE | 2019-10-08 05:40 | RAD_ITS ---
STUDY: X-RAY CHEST REASON FOR EXAM: Female, 79 years old patient with nausea, vomiting, abdominal pain and cough for one week. No fever. TECHNIQUE: Single AP portable view of the chest. COMPARISON: August 04, 2019. FINDINGS: Cardiac monitoring leads are present. The lungs are hyperexpanded. Curvilinear opacity is visible at the left lung base similar to previous study and may represent pulmonary fibrosis. There is eventration of the hemidiaphragms. There is mild elevation of the right hemidiaphragm. There is no demonstrated pleural abnormality. Normal size heart. Normal mediastinum and judith. There is prominence of the pulmonary hilar arteries with peripheral pulmonary vascular congestion. There is atherosclerotic calcification of the aortic arch with tortuosity. Normal visualized thoracic spine. Normal visualized ribs, clavicles, and shoulders. There is no demonstrated abnormality of the visualized soft tissue structures of the upper abdomen. RAD/Chest 1 View (Portable) IMPRESSION: Mild pulmonary congestion. Electronically Signed: Jade Cabral MD at 6:53 EDT , Service support ,
[2019-10-08 05:46] LABS: Absolute Neutrophil Count 4.3 X10^3/uL (2.0-7.7); Basophil# 0.02 X10^3/uL; Basophil% 0.4 % (0-1); Eosinophil# 0.07 X10^3/uL; Eosinophils% 1.2 % (0-5); Hematocrit 40.8 % (37-47); Lymphocyte % 15.9 % (19-41); Mean Corp Hgb Conc 31.9 g/dL (32-36); Mean Corpuscular Hgb 29.2 pg (27.0-32.0); Mean Corpuscular Volume 91.7 fL (81-99); Mean Platelet Vol. 10.3 fl (6.2-12.0); Monocyte# 0.36 X10^3/uL; Monocyte% 6.4 % (0-10); NRBC Flagged by Analyzer 0 % (0-5); Neutrophil # 4.29 X10^3/uL (2.7-7.7); Neutrophil % 75.9 % (47-70); Platelet Count 194 K/mm3 (150-450); RBC Distribution Width CV 12.7 % (11.6-14.6); RBC Distribution Width SD 42.6 fl (35.1-43.9); Red Blood Count 4.45 M/mm3 (4.2-5.4); White Blood Count 5.7 K/mm3 (4.4-11.0)
[2019-10-08 06:09] LABS: ALB/GLOB Ratio 0.7 RATIO (0.9-2.4); AST(SGOT) 28 U/L (15-37); Alanine Aminotransfer ALT/SGPT 34 U/L (13-56); Albumin, Serum 3.1 g/dL (3.2-5.0); Alkaline Phosphatase 102 U/L (45-117); Anion Gap 9 (5-15); BUN 22 mg/dL (7-18); BUN/Creat Ratio 30.5 RATIO (10-20); Calcium,Total 9.1 mg/dL (8.5-10.1); Chloride 100 mmol/L (98-107); Creatinine, Serum 0.72 mg/dL (0.55-1.02); EST Glomerular Filtration Rate 83 mL/min (>60); Est Glom Filt Rate - Afr Amer 101 mL/min (>60); Estimated Creatinine Clearance 41.72 ml/min; Globulin 4.2 g/dL (2.2-4.2); Glucose 123 mg/dL (74-106); Lipase 36 U/L (73-393); Potassium 3.1 mmol/L (3.5-5.1); Protein, Total 7.3 g/dL (6.4-8.2); Sodium Level 138 mmol/L (136-145)
--- NOTE | 2019-10-08 06:47 | CT_ITS ---
STUDY: CT ABDOMEN AND PELVIS WITHOUT CONTRAST REASON FOR EXAM: Female, 79 years old. EPIGASTIC PAIN,VOMITTING RADIATION DOSAGE (If Supplied By Facility): CTDIvol = ( 21.02 ) mGy, DLP = ( 939.87 ) mGycm TECHNIQUE: Transaxial images were obtained from the dome of the diaphragm to the symphysis pubis without oral contrast, and without intravenous contrast. Sagittal and coronal images were reconstructed. Individualized dose optimization techniques were used for this CT. COMPARISON: None. FINDINGS: The visualized lung bases are unremarkable. The visualized portions of the heart are within normal limits. There is decreased attenuation of the liver consistent with steatosis. There is a low attenuation lesion in segment #4 of liver measures 2.5 cm most likely representing a cyst. Normal gallbladder and extrahepatic biliary system. Normal spleen. Normal pancreas. Normal bilateral adrenal glands. Normal right kidney. Normal left kidney. There is a small hiatal hernia. Normal small intestine. There are multiple colonic diverticula consistent with diverticulosis. There is non-visualization of the appendix. Normal abdominal aorta. Normal inferior vena cava. Normal retroperitoneum. Normal urinary bladder. Normal abdominal wall. Normal osseous structures. CT/Abdomen/Pelvis without Cont IMPRESSION: There is decreased attenuation of the liver consistent with steatosis. There is low attenuation lesion in segment #4 of liver measures 2.5 cm most likely representing a cyst. There is a small hiatal hernia. Electronically Signed: Ainsley Wu, at 7:38 EDT Tel , Service support ,
[2019-10-08] MEDS: Metoclopramide 10 MG/2 ML Vial 5 MG IV (06:56)
[2019-10-08 07:36] VITALS: BP 134/62; PULSE 95
== END 2019-10-08 08:34 | disposition home or self-care (01) ==
PROVIDERS: Emergency Provider Emergency Medicine; PCP Family Medicine
DX: K29.00 Acute gastritis without bleeding (principal); R10.13 Epigastric pain; R07.89 Other chest pain; R11.10 Vomiting, unspecified; K44.9 Diaphragmatic hernia without obstruction or gangrene; E66.9 Obesity, unspecified; I49.3 Ventricular premature depolarization; I11.0 Hypertensive heart disease with heart failure; I50.9 Heart failure, unspecified; M19.90 Unspecified osteoarthritis, unspecified site; G25.81 Restless legs syndrome; E78.00 Pure hypercholesterolemia, unspecified; E03.9 Hypothyroidism, unspecified; G62.9 Polyneuropathy, unspecified; I25.10 Atherosclerotic heart disease of native coronary artery without angina pectoris; Z95.5 Presence of coronary angioplasty implant and graft; Z79.899 Other long term (current) drug therapy
CPT/HCPCS: 71045; 74176; 80053; 83690; 84484; 85025; 93005; 96361; 96374; 96375; 99285; J7040; A4216; J2405

== ENCOUNTER → 2019-10-21 11:50 | Outpatient (CLI) | payer MEDICARE, SELFPAY ==
[2019-10-08 05:02] VITALS: BMI 37.7
== END ==
LOC: MTDU 11:50
PROVIDERS: PCP Family Medicine; Visit Provider Family Medicine
DX: Z20.828 Contact with and (suspected) exposure to other viral communicable diseases (principal)
CPT/HCPCS: 87635; C9803; G2023; U0003

== ENCOUNTER → 2019-10-27 11:00 | Outpatient (REF) | payer MEDICARE, SELFPAY ==
[2019-10-08 05:02] VITALS: BMI 37.7
== END ==
LOC: OLS.WCC 11:00
PROVIDERS: PCP Family Medicine; Referring Provider Family Medicine; Visit Provider Family Medicine
DX: Z03.818 Encounter for observation for suspected exposure to other biological agents ruled out (principal)
CPT/HCPCS: 87635; U0003

== ENCOUNTER 2019-10-30 10:55 | Emergency (ER) | payer MEDICARE, SELFPAY ==
[2019-10-30] VITALS (12 sets, daily range): BP systolic 134–162; BP diastolic 69–86; PULSE 78–112; RESP 15–24; TEMP 36.7–37.1; O2SAT 96–99; BMI 37.4
--- NOTE | 2019-10-30 11:20 | EKG12_ITS ---
Test Reason : Blood Pressure : / mmHG Vent. Rate : 102 BPM Atrial Rate : 102 BPM P-R Int : 180 ms QRS Dur : 080 ms QT Int : 358 ms P-R-T Axes : 057 -39 086 degrees QTc Int : 466 ms Sinus tachycardia Left axis deviation Minimal voltage criteria for LVH, may be normal variant Septal infarct , age undetermined Abnormal ECG Confirmed by JULIET SANCHEZ, BERENICE ([id number]), medical editor LOGAN JARQUIN ([id number]) on 11/01/2019 11:01:23 AM Referred By: CHERI Confirmed By:BERENICE CHUNG MD
--- NOTE | 2019-10-30 11:20 | CT_ITS ---
STUDY: CT BRAIN WITHOUT CONTRAST REASON FOR EXAM: Female, 79 years old. CONFUSION RADIATION DOSAGE (If Supplied By Facility): CTDIvol = ( 44.99 ) mGy, DLP = ( 745.49 ) mGycm TECHNIQUE: Transaxial CT imaging of the brain was performed without administration of intravenous contrast material. Individualized dose optimization techniques were used for this CT. COMPARISON: 08/04/2019 FINDINGS: Normal soft tissue structures. Normal calvarium. There is mild cerebral atrophy with widening of the extra-axial spaces and ventricular dilatation. There are areas of decreased attenuation within the white matter tracts of the supratentorial brain, consistent with microvascular disease changes. Normal basal ganglia and thalami. Normal brainstem. Normal cerebellum. There is no intracranial hemorrhage. There are no findings of an acute ischemic infarction. Normal visualized paranasal sinuses. CT/Brain/Head without Contrast IMPRESSION: 1. No acute intracranial hemorrhage or mass effect. Stable exam Electronically Signed: Derik Chakraborty MD ([place]) at 12:24 EDT , Service support ,
--- NOTE | 2019-10-30 11:21 | ED.VIS.GEN ---
History of Present Illness Chief Complaint: Confusion Informant: Patient Onset: Month(s) Narrative: Patient presents from [facility] secondary to increased confusion. She was just admitted to that facility on October 25. Patient has been having visual hallucinations for the past 3 months. Nursing staff noted increased confusion today. She apparently was attempting to pull the fire alarm to exit the facility. She was complaining of mice and maggots on her bed and in her room. - Past Medical History (1) Congestive heart failure (CHF) Status: Chronic (2) Coronary artery arteriosclerosis Status: Chronic (3) Hypercholesterolemia Status: Chronic (4) Hypertension Status: Chronic (5) Hypothyroidism Status: Chronic (6) Neuropathy Status: Chronic (7) Osteoarthritis Status: Chronic (8) Restless leg syndrome Status: Chronic (9) S/P TKR (total knee replacement) Status: Chronic Comment: right Past Medical History - Allergies and Home Meds Allergies/Adverse Reactions: Allergies tramadol [From Ultram] Adverse Reaction (Verified 10/08/19 05:02) Other BEE STINGS Allergy (Severe, Uncoded 10/08/19 05:02) Anaphylaxis Primary Care Physician: Mc Denise MD [NON-STAFF] - Prior records reviewed: Yes Surgical History: appendectomy, hysterectomy - Partial, total knee arthroplasty, tonsillectomy - Tonsillectomy was performed in childhood., - - Lumbar laminectomy, 4 years ago. History of cardiac stent placement. Left total knee replacement June 2014. She also has undergone umbilical hernia repair, hysterectomy, tonsillectomy, and hemorrhoidectomy. Lives: Long-Term Smoking Status: Never smoker - Family History Paternal Family History: Reports: - - , heart disease Maternal Family History: Reports: - - , Alzheimer's disease, age 81. The patient's father at age of 47 from a myocardial infarction. Review of Systems General: Denies: Chills, Fever Eyes: Denies: Visual changes - bilaterally ENT: Denies: Bilateral ear pain Cardiovascular: Denies: Chest pain Respiratory: Denies: Dyspnea, Cough Gastrointestinal: Denies: Abdominal pain, Nausea, Vomiting, Diarrhea Genitourinary: Denies: Dysuria Musculoskeletal: Denies: Extremity Pain Skin: Denies: Rash Neurological: Denies: Headache Hematologic: Denies: Easy bruising, Easy bleeding Allergy: Denies: Uticaria Physical Exam Vital Signs/Narrative: Vital Signs Temp Pulse Resp BP Pulse Ox 10/30/19 10:56 98.8 F 112 H 16 148/85 H 96 Inital Vital Signs reviewed: Yes General: Well nourished, Well developed Head: Normocephalic ENT: Moist mucous membranes Neck: Supple Cardiovascular: Regular rate, Regular rhythm Respiratory: No distress, CTA bilaterally Abdomen: Soft, Nontender Extremities: Nontender Skin: Normal color Neurological: Alert, Oriented x3, Normal Strength, Normal Sensation Psychological: Normal affect Diagnostic/Tx/Re-eval Impressions Brain CT 10/30/19 11:20 IMPRESSION: 1. No acute intracranial hemorrhage or mass effect. Stable exam Electronically Signed: Derik Chakraborty MD ([place]) at 12:24 EDT , Service support , 10/30/19 11:20 Brain/Head without Contrast [CT] Stat Laboratory Results 10/30/19 10/30/19 10/30/19 11:30 11:30 11:30 WBC 6.4 RBC 4.30 Hgb 12.7 Hct 39.1 MCV 90.9 MCH 29.5 MCHC 32.5 RDW Std Deviation 42.6 RDW Coeff of Emili 13.0 Plt Count 156 MPV 9.9 Immature Gran % (Auto) 0.200 Neut % (Auto) 75.3 H Lymph % (Auto) 16.7 L [place] % (Auto) 6.9 Eos % (Auto) 0.6 Baso % (Auto) 0.3 Absolute Neuts (auto) 4.8 Absolute Lymphs (auto) 1.07 Nucleated RBC % 0 Sodium 141 Potassium 3.1 L Chloride 107 Carbon Dioxide 28.0 Anion Gap 6 BUN 19 H Creatinine 0.84 Estim Creat Clear Calc 49.67 Est GFR (MDRD) Af Amer 84 Est GFR (MDRD) Non-Af 69 BUN/Creatinine Ratio 22.5 H Glucose 104 Calcium 8.6 Total Bilirubin 0.70 Direct Bilirubin 0.24 AST 21 ALT 29 Alkaline Phosphatase 96 Troponin I < 0.015 Total Protein 6.9 Albumin 3.2 Globulin 3.7 TSH 1.21 Urine Color Urine Clarity Urine pH Ur Specific [place] Urine Protein Urine Glucose (UA) Urine Ketones Urine Occult Blood Urine Nitrite Urine Bilirubin Urine Urobilinogen Ur Leukocyte Esterase Urine RBC Urine WBC Ur Squamous Epith Cells Urine Bacteria Urine Mucus Urine Opiates Screen Urine Methadone Screen Ur Barbiturates Screen Ur Phencyclidine Scrn Ur Amphetamines Screen U Methamphetamin-MDMA U Benzodiazepines Scrn Urine Cocaine Screen U Cannabinoids Screen Ur Drug Screen Comment Ethyl Alcohol < 3.0 10/30/19 10/30/19 11:50 11:50 WBC RBC Hgb Hct MCV MCH MCHC RDW Std Deviation RDW Coeff of Emili Plt Count MPV Immature Gran % (Auto) Neut % (Auto) Lymph % (Auto) [place] % (Auto) Eos % (Auto) Baso % (Auto) Absolute Neuts (auto) Absolute Lymphs (auto) Nucleated RBC % Sodium Potassium Chloride Carbon Dioxide Anion Gap BUN Creatinine Estim Creat Clear Calc Est GFR (MDRD) Af Amer Est GFR (MDRD) Non-Af BUN/Creatinine Ratio Glucose Calcium Total Bilirubin Direct Bilirubin AST ALT Alkaline Phosphatase Troponin I Total Protein Albumin Globulin TSH Urine Color Yellow Urine Clarity Clear Urine pH 6.5 Ur Specific [place] 1.015 Urine Protein 15 H Urine Glucose (UA) Normal Urine Ketones 5 H Urine Occult Blood Negative Urine Nitrite Negative Urine Bilirubin Negative Urine Urobilinogen Normal Ur Leukocyte Esterase 25 H Urine RBC 0 SEEN Urine WBC 0-5 SEEN Ur Squamous Epith Cells 0-5 SEEN Urine Bacteria 2+ Urine Mucus 0 SEEN Urine Opiates Screen NEGATIVE Urine Methadone Screen NEGATIVE Ur Barbiturates Screen NEGATIVE Ur Phencyclidine Scrn NEGATIVE Ur Amphetamines Screen NEGATIVE U Methamphetamin-MDMA NEGATIVE U Benzodiazepines Scrn NEGATIVE Urine Cocaine Screen NEGATIVE U Cannabinoids Screen NEGATIVE Ur Drug Screen Comment Ethyl Alcohol - EKG Initial EKG Interpretation: Sinus Tachycardia - Sinus tachycardia at 102. No acute ischemia. - Medical Decision Making I spoke with Dr. Cabral, the patient's [facility] physician. He states her behavior was very aggressive this morning and he did not feel that would be accepted back to the facility without a Julia psych placement and medication adjustment. Tristan from the counseling center evaluate the patient over the telephone. He spoke with family as well as staff at the care center. Patient has been accepted at [facility]. They are reportedly requesting another Covid test even though patient had a negative test 3 days ago. This is been sent by nursing staff and will be forwarded upon completion. ED Disposition - Plan for ED Patient: Disposition: Psychiatric Hospital or Unit Diagnosis: Hallucinations Referrals: Mc Denise MD [NON-STAFF] -
[2019-10-30 11:36] LABS: Absolute Lymphocyte Count 1.07 X10^3/uL (0.83-4.51); Absolute Neutrophil Count 4.8 X10^3/uL (2.0-7.7); Basophil# 0.02 X10^3/uL; Basophil% 0.3 % (0-1); Eosinophil# 0.04 X10^3/uL; Eosinophils% 0.6 % (0-5); Hematocrit 39.1 % (37-47); Hemoglobin 12.7 g/dL (12.0-15.0); Lymphocyte # 1.07 X10^3/ul (4.0); Lymphocyte % 16.7 % (19-41); Mean Corp Hgb Conc 32.5 g/dL (32-36); Mean Corpuscular Hgb 29.5 pg (27.0-32.0); Mean Corpuscular Volume 90.9 fL (81-99); Mean Platelet Vol. 9.9 fl (6.2-12.0); Monocyte# 0.44 X10^3/uL; Monocyte% 6.9 % (0-10); NRBC Flagged by Analyzer 0 % (0-5); Neutrophil # 4.83 X10^3/uL (2.7-7.7); Neutrophil % 75.3 % (47-70); Platelet Count 156 K/mm3 (150-450); RBC Distribution Width SD 42.6 fl (35.1-43.9); White Blood Count 6.4 K/mm3 (4.4-11.0)
[2019-10-30 11:59] LABS: AST(SGOT) 21 U/L (15-37); Alanine Aminotransfer ALT/SGPT 29 U/L (13-56); Albumin, Serum 3.2 g/dL (3.2-5.0); Alkaline Phosphatase 96 U/L (45-117); Anion Gap 6 (5-15); BUN 19 mg/dL (7-18); BUN/Creat Ratio 22.5 RATIO (10-20); Bilirubin, Direct 0.24 mg/dL (0.00-0.30); Calcium,Total 8.6 mg/dL (8.5-10.1); Chloride 107 mmol/L (98-107); Creatinine, Serum 0.84 mg/dL (0.55-1.02); EST Glomerular Filtration Rate 69 mL/min (>60); Est Glom Filt Rate - Afr Amer 84 mL/min (>60); Estimated Creatinine Clearance 49.67 ml/min; Globulin 3.7 g/dL (2.2-4.2); Glucose 104 mg/dL (74-106); Potassium 3.1 mmol/L (3.5-5.1); Protein, Total 6.9 g/dL (6.4-8.2); Sodium Level 141 mmol/L (136-145); Thyroid Stim Hormone (TSH) 1.21 uIU/mL (0.358-3.74)
[2019-10-30 12:01] LABS: Mucous, Urine 0 SEEN /hpf (<or=2+); Red Blood Cells-Urine 0 SEEN /hpf (0-5)
[2019-10-30 12:21] LABS: Amphetamine Urine VISTA NEGATIVE (<1000 ng/mL); Barbiturate Urine VISTA NEGATIVE (< 200 ng/mL); Benzodiazepine Urine VISTA NEGATIVE (< 200 ng/mL); Cocaine Urine VISTA NEGATIVE (< 300 ng/mL); Ecstacy Urine VISTA NEGATIVE (< 500 ng/mL); Methadone Urine VISTA NEGATIVE (< 300 ng/mL); PCP Urine VISTA NEGATIVE (< 25 ng/mL); THC Urine VISTA NEGATIVE (< 50 ng/mL); Vista UDS pH Range 6
[2019-10-30 12:22] LABS: Color, Urine Yellow (Yellow); Glucose, Dipstick Normal (Normal); Ketone-Dipstick 5 mg/dl (Negative); Leukocyte Esterase-Dipstick 25 /ul (Negative); Nitrite-Dipstick Negative (Negative); Occult Blood-Urine Negative /ul (Negative); Protein-Dipstick 15 mg/dl (Negative); Specific Gravity, Urine 1.015 (1.002-1.030); Urine Bilirubin Dipstick Negative (Negative); Urine Clarity Clear (Clear); Urine Urobilinogen Normal (Normal); Urine pH 6.5 (5.0 - 8.0)
[2019-10-30 12:24] LABS: Alcohol, Blood (Medical)-Serum < 3.0 mg/dL
[2019-10-30 12:30] LABS: Bacteria 2+ /hpf (None Seen); Squamous Epithelial Cells - UA 0-5 SEEN /hpf (5-10); White Blood Cells 0-5 SEEN /hpf (0-5)
--- NOTE | 2019-10-30 14:44 | ED.RN ---
Pt daughter called for update. Informed crisis was coming for eval nd we would keep her up to date prn.
--- NOTE | 2019-10-30 14:48 | ED.RN ---
Daughter, Mildred Weekly [phone]
[2019-10-30] MEDS: Acetaminophen 500 MG Tablet 1000 MG PO (14:50)
[2019-10-30 22:33] LABS: Probe Check PASS; Specimen Processing Control PASS
[2019-10-31 00:03] VITALS: BP 175/83; PULSE 94; RESP 16; O2SAT 100
--- NOTE | 2019-10-31 00:03 | ED.RN ---
patient has been accepted [facility] by Dr. Renae Smith unit 102 bed A [phone] daughter made aware of admission
--- NOTE | 2019-10-31 00:33 | ED.RN ---
ATTEMPTED TO CALL REPORT TO [facility]. UNABLE TO REACH. WILL CALL BACK.
--- NOTE | 2019-11-07 00:02 | ED.RN ---
CHART OPENED TO PRINT STICKERS FOR THE [facility] REPORT
== END 2019-10-31 00:47 ==
PROVIDERS: Emergency Provider Emergency Medicine; PCP Family Medicine
DX: R44.3 Hallucinations, unspecified (principal); I11.0 Hypertensive heart disease with heart failure; I50.9 Heart failure, unspecified; I25.10 Atherosclerotic heart disease of native coronary artery without angina pectoris; E78.00 Pure hypercholesterolemia, unspecified; E03.9 Hypothyroidism, unspecified; G62.9 Polyneuropathy, unspecified; M19.90 Unspecified osteoarthritis, unspecified site; G25.81 Restless legs syndrome; Z95.5 Presence of coronary angioplasty implant and graft; Z79.82 Long term (current) use of aspirin; Z79.899 Other long term (current) drug therapy
CPT/HCPCS: 70450; 80048; 80076; 80307; 80320; 81001; 84443; 84484; 85025; 87635; 93005; 99285; G2023; G0480; U0003

== ENCOUNTER → 2019-12-15 14:47 | Outpatient (REF) | payer MEDICARE, SELFPAY ==
[2019-10-30 10:56] VITALS: BMI 37.4
== END ==
LOC: OLS.WCC 14:47
PROVIDERS: PCP Family Medicine; Referring Provider Family Medicine; Visit Provider Family Medicine
DX: Z20.828 Contact with and (suspected) exposure to other viral communicable diseases (principal)
CPT/HCPCS: 87635; U0003

== ENCOUNTER → 2020-01-18 12:15 | Outpatient (REF) | payer MEDICARE, MEDICAID, SELFPAY ==
[2019-10-30 10:56] VITALS: BMI 37.4
[2020-01-18 14:21] LABS: Mucous, Urine 0 SEEN /hpf (<or=2+); Red Blood Cells-Urine 0 SEEN /hpf (0-5); Squamous Epithelial Cells - UA 0 SEEN /hpf (5-10)
[2020-01-18 14:48] LABS: Color, Urine Yellow (Yellow); Glucose, Dipstick Normal (Normal); Ketone-Dipstick Negative (Negative); Leukocyte Esterase-Dipstick Negative /ul (Negative); Nitrite-Dipstick Negative (Negative); Occult Blood-Urine Negative /ul (Negative); Protein-Dipstick Negative (Negative); Urine Bilirubin Dipstick Negative (Negative); Urine Clarity Clear (Clear); Urine Urobilinogen 4 mg/dl (Normal)
[2020-01-18 14:57] LABS: Amorphous Sediment 1+; Bacteria 1+ /hpf (None Seen); White Blood Cells 0-5 SEEN /hpf (0-5)
== END ==
LOC: OLS.WCC 12:15
PROVIDERS: PCP Family Medicine; Visit Provider Family Medicine
DX: N39.0 Urinary tract infection, site not specified (principal)
CPT/HCPCS: 81001; 87086

== ENCOUNTER → 2020-02-13 05:00 | Outpatient (REF) | payer MEDICARE, MEDICAID, SELFPAY ==
[2019-10-30 10:56] VITALS: BMI 37.4
[2020-02-13 07:52] LABS: Hematocrit 34.4 % (37-47); Hemoglobin 10.7 g/dL (12.0-15.0); Mean Corp Hgb Conc 31.1 g/dL (32-36); Mean Corpuscular Hgb 30.1 pg (27.0-32.0); Mean Corpuscular Volume 96.6 fL (81-99); Mean Platelet Vol. 9.5 fl (6.2-12.0); Platelet Count 235 K/mm3 (150-450); RBC Distribution Width CV 14.3 % (11.6-14.6); RBC Distribution Width SD 50.5 fl (35.1-43.9); Red Blood Count 3.56 M/mm3 (4.2-5.4); White Blood Count 4.8 K/mm3 (4.4-11.0)
[2020-02-13 07:56] LABS: Valproic Acid (Depakene) Level 34 ug/mL (50-100)
[2020-02-13 08:14] LABS: ALB/GLOB Ratio 0.5 RATIO (0.9-2.4); AST(SGOT) 15 U/L (15-37); Alanine Aminotransfer ALT/SGPT 15 U/L (13-56); Albumin, Serum 1.9 g/dL (3.2-5.0); Alkaline Phosphatase 129 U/L (45-117); Anion Gap 4 (5-15); BUN 11 mg/dL (7-18); BUN/Creat Ratio 23.1 RATIO (10-20); Chloride 105 mmol/L (98-107); Creatinine, Serum 0.48 mg/dL (0.55-1.02); EST Glomerular Filtration Rate 134 mL/min (>60); Est Glom Filt Rate - Afr Amer 162 mL/min (>60); Glucose 85 mg/dL (74-106); Potassium 3.9 mmol/L (3.5-5.1); Protein, Total 5.9 g/dL (6.4-8.2); Sodium Level 141 mmol/L (136-145); Thyroid Stim Hormone (TSH) 2.51 uIU/mL (0.358-3.74)
== END ==
LOC: OLS.WCC 05:00
PROVIDERS: PCP Family Medicine; Visit Provider Family Medicine
DX: I11.0 Hypertensive heart disease with heart failure (principal); I50.9 Heart failure, unspecified; J44.9 Chronic obstructive pulmonary disease, unspecified; F03.90 Unspecified dementia, unspecified severity, without behavioral disturbance, psychotic disturbance, mood disturbance, and anxiety; E78.5 Hyperlipidemia, unspecified; E03.9 Hypothyroidism, unspecified; Z79.899 Other long term (current) drug therapy
CPT/HCPCS: 36415; 80053; 80164; 84443; 85027

== ENCOUNTER → 2020-04-16 05:00 | Outpatient (REF) | payer MEDICARE, MEDICAID, SELFPAY ==
[2019-10-30 10:56] VITALS: BMI 37.4
[2020-04-16 07:57] LABS: Absolute Lymphocyte Count 1.55 X10^3/uL (0.83-4.51); Absolute Neutrophil Count 6.7 X10^3/uL (2.0-7.7); Basophil# 0.02 X10^3/uL; Basophil% 0.2 % (0-1); Eosinophils% 1.1 % (0-5); Hematocrit 37.7 % (37-47); Hemoglobin 12.2 g/dL (12.0-15.0); Lymphocyte # 1.55 X10^3/ul (4.0); Lymphocyte % 16.9 % (19-41); Mean Corp Hgb Conc 32.4 g/dL (32-36); Mean Corpuscular Hgb 30.4 pg (27.0-32.0); Mean Platelet Vol. 10.5 fl (6.2-12.0); Monocyte# 0.84 X10^3/uL; Monocyte% 9.1 % (0-10); NRBC Flagged by Analyzer 0 % (0-5); Neutrophil # 6.66 X10^3/uL (2.7-7.7); Neutrophil % 72.5 % (47-70); Platelet Count 188 K/mm3 (150-450); RBC Distribution Width SD 44.8 fl (35.1-43.9); Red Blood Count 4.01 M/mm3 (4.2-5.4); White Blood Count 9.2 K/mm3 (4.4-11.0)
[2020-04-16 08:39] LABS: Anion Gap 7 (5-15); BUN 20 mg/dL (7-18); Chloride 101 mmol/L (98-107); Creatinine, Serum 0.46 mg/dL (0.55-1.02); EST Glomerular Filtration Rate 138 mL/min (>60); Est Glom Filt Rate - Afr Amer 167 mL/min (>60); Glucose 88 mg/dL (74-106); Potassium 3.7 mmol/L (3.5-5.1); Sodium Level 136 mmol/L (136-145)
== END ==
LOC: OLS.WCC 05:00
PROVIDERS: PCP Family Medicine; Visit Provider Family Medicine
DX: J44.9 Chronic obstructive pulmonary disease, unspecified (principal); F03.90 Unspecified dementia, unspecified severity, without behavioral disturbance, psychotic disturbance, mood disturbance, and anxiety; R50.9 Fever, unspecified; I10 Essential (primary) hypertension
CPT/HCPCS: 36415; 80048; 85025

== ENCOUNTER → 2020-05-22 05:00 | Outpatient (REF) | payer MEDICARE, MEDICAID, SELFPAY ==
[2019-10-30 10:56] VITALS: BMI 37.4
[2020-05-22 08:06] LABS: Hematocrit 36.1 % (37-47); Hemoglobin 11.9 g/dL (12.0-15.0); Mean Corpuscular Hgb 30.2 pg (27.0-32.0); Mean Corpuscular Volume 91.6 fL (81-99); Mean Platelet Vol. 10.1 fl (6.2-12.0); Platelet Count 166 K/mm3 (150-450); RBC Distribution Width CV 13.6 % (11.6-14.6); RBC Distribution Width SD 46.1 fl (35.1-43.9); Red Blood Count 3.94 M/mm3 (4.2-5.4)
[2020-05-22 08:20] LABS: AST(SGOT) 11 U/L (15-37); Alanine Aminotransfer ALT/SGPT 13 U/L (13-56); Albumin, Serum 2.2 g/dL (3.2-5.0); Alkaline Phosphatase 76 U/L (45-117); Bilirubin, Direct 0.11 mg/dL (0.00-0.30); Globulin 3.5 g/dL (2.2-4.2); Protein, Total 5.7 g/dL (6.4-8.2)
[2020-05-22 08:43] LABS: Valproic Acid (Depakene) Level 58 ug/mL (50-100)
== END ==
LOC: OLS.WCC 05:00
PROVIDERS: PCP Family Medicine; Visit Provider Family Medicine
DX: F03.90 Unspecified dementia, unspecified severity, without behavioral disturbance, psychotic disturbance, mood disturbance, and anxiety (principal); I10 Essential (primary) hypertension; E03.9 Hypothyroidism, unspecified; Z79.899 Other long term (current) drug therapy
CPT/HCPCS: 36415; 80076; 80164; 85027

== ENCOUNTER → 2020-06-13 05:30 | Outpatient (REF) | payer MEDICARE, MEDICAID, SELFPAY ==
[2019-10-30 10:56] VITALS: BMI 37.4
[2020-06-13 09:22] LABS: ALB/GLOB Ratio 0.6 RATIO (0.9-2.4); AST(SGOT) 19 U/L (15-37); Alanine Aminotransfer ALT/SGPT 17 U/L (13-56); Albumin, Serum 2.3 g/dL (3.2-5.0); Alkaline Phosphatase 88 U/L (45-117); Anion Gap 4 (5-15); BUN 16 mg/dL (7-18); BUN/Creat Ratio 38.9 RATIO (10-20); Calcium,Total 9.4 mg/dL (8.5-10.1); Chloride 103 mmol/L (98-107); Creatinine, Serum 0.41 mg/dL (0.55-1.02); EST Glomerular Filtration Rate 159 mL/min (>60); Est Glom Filt Rate - Afr Amer 192 mL/min (>60); Globulin 4.1 g/dL (2.2-4.2); Glucose 88 mg/dL (74-106); Potassium 3.9 mmol/L (3.5-5.1); Protein, Total 6.4 g/dL (6.4-8.2); Sodium Level 138 mmol/L (136-145); Thyroid Stim Hormone (TSH) 0.53 uIU/mL (0.358-3.74)
== END ==
LOC: OLS.WCC 05:30
PROVIDERS: PCP Family Medicine; Referring Provider Family Medicine; Visit Provider Family Medicine
DX: E03.9 Hypothyroidism, unspecified (principal); Z79.899 Other long term (current) drug therapy
CPT/HCPCS: 36415; 80053; 84443

== ENCOUNTER → 2020-08-10 05:00 | Outpatient (REF) | payer MEDICARE, MEDICAID, SELFPAY ==
[2019-10-30 10:56] VITALS: BMI 37.4
[2020-08-10 08:13] LABS: Hematocrit 37.8 % (37-47); Hemoglobin 12.1 g/dL (12.0-15.0); Mean Corpuscular Hgb 30.9 pg (27.0-32.0); Mean Corpuscular Volume 96.4 fL (81-99); Mean Platelet Vol. 10.6 fl (6.2-12.0); Platelet Count 170 K/mm3 (150-450); RBC Distribution Width SD 49.7 fl (35.1-43.9); Red Blood Count 3.92 M/mm3 (4.2-5.4); White Blood Count 7.3 K/mm3 (4.4-11.0)
[2020-08-10 08:22] LABS: Valproic Acid (Depakene) Level 57 ug/mL (50-100)
[2020-08-10 08:40] LABS: AST(SGOT) 8 U/L (15-37); Alanine Aminotransfer ALT/SGPT 10 U/L (13-56); Albumin, Serum 2.1 g/dL (3.2-5.0); Alkaline Phosphatase 99 U/L (45-117); Bilirubin, Direct 0.12 mg/dL (0.00-0.30); Globulin 3.4 g/dL (2.2-4.2); Protein, Total 5.5 g/dL (6.4-8.2)
== END ==
LOC: OLS.WCC 05:00
PROVIDERS: PCP Family Medicine; Visit Provider Family Medicine
DX: I11.0 Hypertensive heart disease with heart failure (principal); I50.9 Heart failure, unspecified; J44.9 Chronic obstructive pulmonary disease, unspecified; Z79.899 Other long term (current) drug therapy
CPT/HCPCS: 36415; 80076; 80164; 85027

== ENCOUNTER → 2020-10-09 05:00 | Outpatient (REF) | payer SELFPAY ==
[2019-10-30 10:56] VITALS: BMI 37.4
[2020-10-09 07:32] LABS: Hematocrit 37.1 % (37-47); Hemoglobin 12.2 g/dL (12.0-15.0); Mean Corp Hgb Conc 32.9 g/dL (32-36); Mean Corpuscular Hgb 31.7 pg (27.0-32.0); Mean Corpuscular Volume 96.4 fL (81-99); Mean Platelet Vol. 9.8 fl (6.2-12.0); Platelet Count 172 K/mm3 (150-450); RBC Distribution Width CV 12.9 % (11.6-14.6); RBC Distribution Width SD 45.5 fl (35.1-43.9); Red Blood Count 3.85 M/mm3 (4.2-5.4); White Blood Count 6.3 K/mm3 (4.4-11.0)
[2020-10-09 07:51] LABS: Valproic Acid (Depakene) Level 69 ug/mL (50-100)
[2020-10-09 08:03] LABS: ALB/GLOB Ratio 0.5 RATIO (0.9-2.4); AST(SGOT) 11 U/L (15-37); Alanine Aminotransfer ALT/SGPT 8 U/L (13-56); Albumin, Serum 1.9 g/dL (3.2-5.0); Alkaline Phosphatase 75 U/L (45-117); Anion Gap 5 (5-15); BUN 16 mg/dL (7-18); BUN/Creat Ratio 43.1 RATIO (10-20); Bilirubin, Direct 0.13 mg/dL (0.00-0.30); Calcium,Total 8.6 mg/dL (8.5-10.1); Chloride 103 mmol/L (98-107); Creatinine, Serum 0.37 mg/dL (0.55-1.02); EST Glomerular Filtration Rate 178 mL/min (>60); Est Glom Filt Rate - Afr Amer 216 mL/min (>60); Globulin 3.5 g/dL (2.2-4.2); Glucose 85 mg/dL (74-106); Magnesium 1.9 mg/dL (1.6-2.6); Potassium 3.5 mmol/L (3.5-5.1); Protein, Total 5.4 g/dL (6.4-8.2); Sodium Level 139 mmol/L (136-145); Thyroid Stim Hormone (TSH) 6.74 uIU/mL (0.358-3.74)
== END ==
LOC: OLS.WCC 05:00
PROVIDERS: Visit Provider Family Medicine
DX: I50.9 Heart failure, unspecified (principal); J44.9 Chronic obstructive pulmonary disease, unspecified; F03.90 Unspecified dementia, unspecified severity, without behavioral disturbance, psychotic disturbance, mood disturbance, and anxiety; R53.83 Other fatigue; E03.9 Hypothyroidism, unspecified; Z79.899 Other long term (current) drug therapy
CPT/HCPCS: 36415; 80053; 80164; 82248; 83735; 84443; 85027

== ENCOUNTER → 2020-12-10 05:00 | Outpatient (REF) | payer SELFPAY ==
[2019-10-30 10:56] VITALS: BMI 37.4
[2020-12-10 07:46] LABS: Thyroid Stim Hormone (TSH) 3.18 uIU/mL (0.358-3.74)
== END ==
LOC: OLS.WCC 05:00
PROVIDERS: Visit Provider Family Medicine
DX: E03.9 Hypothyroidism, unspecified (principal)
CPT/HCPCS: 36415; 84443

== ENCOUNTER → 2021-01-31 22:15 | Outpatient (REF) | payer MEDICARE, MEDICAID, SELFPAY ==
[2021-02-01 07:47] LABS: Color, Urine Red (Yellow); Glucose, Dipstick Normal (Normal); Ketone-Dipstick Negative (Negative); Leukocyte Esterase-Dipstick 25 /ul (Negative); Nitrite-Dipstick Negative (Negative); Occult Blood-Urine 250 /ul (Negative); Protein-Dipstick 100 mg/dl (Negative); Specific Gravity, Urine 1.015 (1.002-1.030); Urine Bilirubin Dipstick Negative (Negative); Urine Clarity Sl. Cloudy (Clear); Urine Urobilinogen Normal (Normal)
== END ==
LOC: OLS.WCC 22:15
PROVIDERS: PCP Family Medicine; Visit Provider Family Medicine
DX: R30.0 Dysuria (principal); R10.9 Unspecified abdominal pain
CPT/HCPCS: 81002; 87086

== ENCOUNTER 2021-04-10 05:00 | Outpatient (REF) | payer MEDICARE, MEDICAID, SELFPAY ==
[2021-04-10 08:15] LABS: Hematocrit 38.9 % (37-47); Hemoglobin 13.1 g/dL (12.0-15.0); Mean Corp Hgb Conc 33.7 g/dL (32-36); Mean Corpuscular Hgb 31.9 pg (27.0-32.0); Mean Corpuscular Volume 94.6 fL (81-99); Mean Platelet Vol. 10.5 fl (6.2-12.0); Platelet Count 152 K/mm3 (150-450); RBC Distribution Width CV 12.4 % (11.6-14.6); RBC Distribution Width SD 43.2 fl (35.1-43.9); Red Blood Count 4.11 M/mm3 (4.2-5.4); White Blood Count 5.3 K/mm3 (4.4-11.0)
[2021-04-10 08:38] LABS: Valproic Acid (Depakene) Level 78 ug/mL (50-100)
[2021-04-10 08:59] LABS: ALB/GLOB Ratio 0.6 RATIO (0.9-2.4); AST(SGOT) 13 U/L (15-37); Alanine Aminotransfer ALT/SGPT 15 U/L (13-56); Albumin, Serum 2.3 g/dL (3.2-5.0); Alkaline Phosphatase 90 U/L (45-117); Anion Gap 5 (5-15); BUN 17 mg/dL (7-18); BUN/Creat Ratio 30.2 RATIO (10-20); Bilirubin, Direct 0.08 mg/dL (0.00-0.30); Calcium,Total 8.6 mg/dL (8.5-10.1); Chloride 104 mmol/L (98-107); Creatinine, Serum 0.56 mg/dL (0.55-1.02); EST Glomerular Filtration Rate 110 mL/min (>60); Est Glom Filt Rate - Afr Amer 134 mL/min (>60); Glucose 84 mg/dL (74-106); Potassium 3.8 mmol/L (3.5-5.1); Protein, Total 6.3 g/dL (6.4-8.2); Sodium Level 138 mmol/L (136-145); Thyroid Stim Hormone (TSH) 2.67 uIU/mL (0.358-3.74)
== END 2021-04-10 23:59 | disposition home or self-care (01) ==
LOC: OLS.WCC 05:00
PROVIDERS: PCP Family Medicine; Visit Provider Family Medicine
DX: E78.5 Hyperlipidemia, unspecified (principal); E03.9 Hypothyroidism, unspecified; Z79.899 Other long term (current) drug therapy
CPT/HCPCS: 36415; 80053; 80164; 82248; 84443; 85027

== ENCOUNTER → 2021-09-27 | Outpatient (CLI) | payer MEDICARE, MEDICAID, SELFPAY ==
--- NOTE | 2021-09-27 12:48 | MRI_ITS ---
EXAM: MR CERVICAL SPINE WITHOUT INTRAVENOUS CONTRAST CLINICAL INDICATION: pain TECHNIQUE: Multiplanar and multisequence MR images of the cervical spine without intravenous contrast were performed. This report was created using [employer] report generation technology. COMPARISON: Plain film 09/06/2021 FINDINGS: VERTEBRAE: There is reversal of the normal cervical lordosis. This can suggest neck strain. 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 SPINAL CORD: Unremarkable in signal and morphology. SOFT TISSUES: Unremarkable. No prevertebral soft tissue swelling. LYMPH NODES: Unremarkable. There is no cervical adenopathy. DISCS/SPINAL CANAL/NEURAL FORAMINA: C2-C3: C2-3: Normal endplates. Disc desiccation. Normal central canal and intervertebral neuroforamina. C3-C4: C3-4: Loss of intervertebral disc height. There is endplate spondylosis of the vertebral body. Normal central canal and intervertebral neuroforamina. There is bilateral facet arthropathy. C4-C5: C4-5: Loss of intervertebral disc height. There is endplate spondylosis of the vertebral body. Normal central canal and intervertebral neuroforamina. There is bilateral facet arthropathy. C5-C6: C5-6: Loss of intervertebral disc height. There is endplate spondylosis of the vertebral body. Normal central canal and intervertebral neuroforamina. There is bilateral facet arthropathy. C6-C7: C6-7: Loss of intervertebral disc height. There is endplate spondylosis of the vertebral body. Posterior disc bulge osteophyte complex. These extend into the bilateral neural foramina causing severe neural foraminal stenosis. There is likely compression of exiting nerve roots. There is bilateral facet arthropathy. Normal spinal canal. C7-T1: Loss of intervertebral disc height. There is endplate spondylosis of the vertebral body. Normal central canal and intervertebral neuroforamina. There is bilateral facet arthropathy. MRI/Spine Cervical (Routine) IMPRESSION: 1. There is reversal of the normal cervical lordosis. This can suggest neck strain. 2. 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 3. C6-7: Loss of intervertebral disc height. There is endplate spondylosis of the vertebral body. Posterior disc bulge osteophyte complex. These extend into the bilateral neural foramina causing severe neural foraminal stenosis. There is likely compression of exiting nerve roots. There is bilateral facet arthropathy. Electronically Signed: Nando Uriarte MD at 21:00 EDT ,
== END | disposition home or self-care (01) ==
LOC: MRI 12:48
PROVIDERS: PCP Family Medicine; Visit Provider Orthopaedic Surgery
DX: M47.812 Spondylosis without myelopathy or radiculopathy, cervical region (principal)
CPT/HCPCS: 72141

== ENCOUNTER → 2021-10-09 | Outpatient (REF) | payer MEDICARE, MEDICAID, SELFPAY ==
[2021-10-09 08:05] LABS: Hemoglobin 12.2 g/dL (12.0-15.0); Mean Corp Hgb Conc 32.1 g/dL (32-36); Mean Corpuscular Hgb 31.7 pg (27.0-32.0); Mean Corpuscular Volume 98.7 fL (81-99); Mean Platelet Vol. 11.1 fl (6.2-12.0); Platelet Count 135 K/mm3 (150-450); RBC Distribution Width CV 12.7 % (11.6-14.6); RBC Distribution Width SD 45.7 fl (35.1-43.9); Red Blood Count 3.85 M/mm3 (4.2-5.4); White Blood Count 5.8 K/mm3 (4.4-11.0)
[2021-10-09 08:21] LABS: Valproic Acid (Depakene) Level 80 ug/mL (50-100)
[2021-10-09 09:25] LABS: ALB/GLOB Ratio 0.8 RATIO (0.9-2.4); AST(SGOT) 11 U/L (15-37); Alanine Aminotransfer ALT/SGPT 12 U/L (13-56); Albumin, Serum 2.4 g/dL (3.2-5.0); Alkaline Phosphatase 70 U/L (45-117); Anion Gap 5 (5-15); BUN 21 mg/dL (7-18); BUN/Creat Ratio 37.3 RATIO (10-20); Bilirubin, Direct 0.07 mg/dL (0.00-0.30); Calcium,Total 8.6 mg/dL (8.5-10.1); Chloride 106 mmol/L (98-107); Creatinine, Serum 0.56 mg/dL (0.55-1.02); EST Glomerular Filtration Rate 110 mL/min (>60); Est Glom Filt Rate - Afr Amer 133 mL/min (>60); Globulin 3.2 g/dL (2.2-4.2); Glucose 93 mg/dL (74-106); Magnesium 2.1 mg/dL (1.6-2.6); Potassium 3.8 mmol/L (3.5-5.1); Protein, Total 5.6 g/dL (6.4-8.2); Sodium Level 141 mmol/L (136-145); Thyroid Stim Hormone (TSH) 3.93 uIU/mL (0.358-3.74)
== END | disposition home or self-care (01) ==
LOC: OLS.WCC 04:50
PROVIDERS: PCP Family Medicine; Referring Provider Family Medicine; Visit Provider Family Medicine
DX: I11.0 Hypertensive heart disease with heart failure (principal); F03.90 Unspecified dementia, unspecified severity, without behavioral disturbance, psychotic disturbance, mood disturbance, and anxiety; J44.9 Chronic obstructive pulmonary disease, unspecified; I50.9 Heart failure, unspecified; E03.9 Hypothyroidism, unspecified; Z79.899 Other long term (current) drug therapy
CPT/HCPCS: 36415; 80053; 80164; 82248; 83735; 84443; 85027

== ENCOUNTER → 2021-12-10 | Outpatient (REF) | payer MEDICARE, MEDICAID, SELFPAY ==
[2021-12-10 11:04] LABS: ALB/GLOB Ratio 0.7 RATIO (0.9-2.4); AST(SGOT) 9 U/L (15-37); Alanine Aminotransfer ALT/SGPT 9 U/L (13-56); Albumin, Serum 2.3 g/dL (3.2-5.0); Alkaline Phosphatase 79 U/L (45-117); Anion Gap 5 (5-15); BUN 22 mg/dL (7-18); BUN/Creat Ratio 47.2 RATIO (10-20); Calcium,Total 8.7 mg/dL (8.5-10.1); Chloride 106 mmol/L (98-107); Creatinine, Serum 0.47 mg/dL (0.55-1.02); EST Glomerular Filtration Rate 137 mL/min (>60); Est Glom Filt Rate - Afr Amer 165 mL/min (>60); Globulin 3.3 g/dL (2.2-4.2); Glucose 102 mg/dL (74-106); Potassium 3.7 mmol/L (3.5-5.1); Protein, Total 5.6 g/dL (6.4-8.2); Sodium Level 140 mmol/L (136-145); Thyroid Stim Hormone (TSH) 5.24 uIU/mL (0.358-3.74)
== END ==
LOC: OLS.WCC 04:00
PROVIDERS: PCP Family Medicine; Visit Provider Family Medicine
DX: E03.9 Hypothyroidism, unspecified (principal)
CPT/HCPCS: 36415; 80053; 84443

== ENCOUNTER 2022-01-13 05:56 | Day surgery (SDC) | payer MEDICARE, MEDICAID, SELFPAY ==
[2022-01-13 06:30] VITALS: BP 169/97; PULSE 85; RESP 17; TEMP 36.4; O2SAT 96; BMI 35.4
--- NOTE | 2022-01-13 07:43 | RAD_ITS ---
INDICATION: BLOCK, C3-6 UNDER FLOURO EXAMINATION/TECHNIQUE: X-RAY - XR Spine Cervical 4 or 5 Views FLUOROSCOPY DOSE: 0.52 mGy FLUOROSCOPY TIME: 4.6 seconds FINDINGS: 4 spot fluoroscopic images were obtained intraoperatively. Images demonstrate the needle along the left lateral aspect of the cervical spine. No radiologist was present for the procedure, please refer to operative report for details. RAD/Cerv Spine 4 or 5 Views IMPRESSION: Please refer to operative report for details. Electronically Signed: Kyler Boudreaux MD at 8:43 EDT ,
[2022-01-13] MEDS: MethylPREDNISolone Acetate 80 MG/ML Vial (07:46)
--- NOTE | 2022-01-13 07:53 | OP.PCM_ITS ---
Report of Operation Date of Procedure: 01/13/22 Pre-Operative Diagnosis: Cervical spondylosis, cervical degenerative disc disea se, cervical facet arthropathy Post-Operative Diagnosis: Cervical spondylosis, cervical degenerative disc disease, cervical facet arthropathy Surgery/Procedure Performed:: Right sided cervical medial branch injection, C3,C4, C5, C6. Type of Anesthesia: MAC Estimated Blood Loss (mL): Minimal Description of Procedure: DESCRIPTION OF PROCEDURE: History and physical of today was reviewed. Risks and benefits of the procedure were explained. The patient understood and agreed to proceed. Informed consent was obtained. IV inserted per routine protocol. The patient was taken to the operating room and placed in the prone position with a pillow positioned underneath the chest. The neck area was prepped and draped in a sterile fashion using iodine x3. Under fluoroscopy guidance on an AP view, the C3 through C6 vertebral bodies were visualized at approximately 10- degree angle, starting on the right C3, ending on the right C6, passing through the C4 and C5. Using a 25-gauge 3-1/2-inch spinal needle, the needle was advanced via the skin. The tip of the needle was maneuvered and directed towards the epiphyseal junction of each corresponding vertebra. Once the tip of the needle was at the vicinity of the medial branch, the needle was pulled approximately 2 mm off the bone. After negative aspiration of blood or CSF and confirmation on AP, oblique as well as lateral view, a total of 4 mL of preservative-free 0.25% Marcaine with 80 mg of Depo-Medrol was injected in divided doses between those four levels. The needles were then removed intact. The patient experienced no sign or symptoms of intrathecal or intravascular injection. The patient experienced no paresthesia. The procedure was completed without any apparent difficulty or any complications. The patient appeared to tolerate it well. ASSESSMENT AND PLAN: This is a 81-year-old female with cervical spondylosis, cervical degenerative disc disease, cervical facet arthropathy status post right-sided cervical medial branch block at C3-C6, patient will continue her current medications, patient will follow in approximately 1-2 weeks for reevaluation. Complications None
[2022-01-13 07:55] VITALS: BP 129/83; BP 169/97; PULSE 85; RESP 16; TEMP 36.4; O2SAT 96
[2022-01-13 08:00] VITALS: BP 140/82; BP 169/97; PULSE 86; RESP 16; O2SAT 97
[2022-01-13 08:05] VITALS: BP 136/87; BP 169/97; PULSE 86; RESP 16; O2SAT 96
[2022-01-13 08:11] VITALS: BP 138/85; BP 169/97; PULSE 87; RESP 16; TEMP 36.7; O2SAT 96
[2022-01-13 08:35] VITALS: BP 169/97
== END 2022-01-13 08:38 | disposition home or self-care (01) ==
LOC: SDC 05:57 → AC 05:58
PROVIDERS: PCP Family Medicine; Referring Provider Family Medicine; Visit Provider Anesthesiology Pain Medicine
PROC: 3E0S3BZ Introduction of Anesthetic Agent into Epidural Space, Percutaneous Approach (ICD-10-PCS; CPT 62322; principal; 2022-01-13 07:25)
DX: M47.812 Spondylosis without myelopathy or radiculopathy, cervical region (principal); F20.9 Schizophrenia, unspecified; M46.92 Unspecified inflammatory spondylopathy, cervical region; F31.9 Bipolar disorder, unspecified; I10 Essential (primary) hypertension; K21.9 Gastro-esophageal reflux disease without esophagitis; F41.9 Anxiety disorder, unspecified; Z78.0 Asymptomatic menopausal state; E07.9 Disorder of thyroid, unspecified; Z79.899 Other long term (current) drug therapy; Z79.82 Long term (current) use of aspirin; M50.30 Other cervical disc degeneration, unspecified cervical region
CPT/HCPCS: 64490; 64491; 64492; 72050; J7120; J2405

== ENCOUNTER → 2022-03-06 | Outpatient (REF) | payer MEDICARE, MEDICAID, SELFPAY ==
[2022-03-06 09:17] LABS: Hematocrit 38.3 % (37-47); Hemoglobin 12.5 g/dL (12.0-15.0); Mean Corp Hgb Conc 32.6 g/dL (32-36); Mean Corpuscular Hgb 31.9 pg (27.0-32.0); Mean Corpuscular Volume 97.7 fL (81-99); Mean Platelet Vol. 10.7 fl (6.2-12.0); Platelet Count 156 K/mm3 (150-450); RBC Distribution Width CV 12.6 % (11.6-14.6); RBC Distribution Width SD 45.1 fl (35.1-43.9); Red Blood Count 3.92 M/mm3 (4.2-5.4); White Blood Count 5.5 K/mm3 (4.4-11.0)
[2022-03-06 09:37] LABS: Anion Gap 7 (5-15); BUN 32 mg/dL (7-18); BUN/Creat Ratio 64.6 RATIO (10-20); Calcium,Total 8.6 mg/dL (8.5-10.1); Chloride 105 mmol/L (98-107); EST Glomerular Filtration Rate 127 mL/min (>60); Est Glom Filt Rate - Afr Amer 154 mL/min (>60); Glucose 83 mg/dL (74-106); Potassium 3.6 mmol/L (3.5-5.1); Sodium Level 142 mmol/L (136-145)
== END ==
LOC: OLS.WCC 05:00
PROVIDERS: PCP Family Medicine; Visit Provider Family Medicine
DX: I10 Essential (primary) hypertension (principal); E03.9 Hypothyroidism, unspecified; J44.9 Chronic obstructive pulmonary disease, unspecified; F03.90 Unspecified dementia, unspecified severity, without behavioral disturbance, psychotic disturbance, mood disturbance, and anxiety
CPT/HCPCS: 36415; 80048; 85027

== ENCOUNTER 2022-03-17 06:01 | Day surgery (SDC) | payer MEDICARE, MEDICAID, SELFPAY ==
[2022-03-17] MEDS: Lactated Ringers 1,000 ML 15 ML IV (06:42)
[2022-03-17 06:43] VITALS: BP 132/76; PULSE 88; RESP 18; TEMP 36.2; O2SAT 95; BMI 34.9
--- NOTE | 2022-03-17 07:35 | RAD_ITS ---
STUDY: X-RAY - CERVICAL SPINE REASON FOR EXAM: Female, 81 years old. Nerve block from C3-C6. Intraprocedural digital block station views. TECHNIQUE: Sagittal 2 intraprocedural digital view(s) of the cervical spine were obtained. COMPARISON: MRI of the cervical spine dated September 27, 2021. FINDINGS: 2 intraprocedural digital documentation views show needle placement adjacent to the left spinous process of the C4 vertebral body. RAD/Cerv Spine 2 or 3 Views IMPRESSION: 2 intraprocedural digital documentation images as described. Electronically Signed: Paul Espinosa, at 11:46 EST ,
[2022-03-17] MEDS: Bupivacaine 0.25% 30 ML Vial (07:40)
[2022-03-17] MEDS: MethylPREDNISolone Acetate 80 MG/ML Vial (07:40)
[2022-03-17 07:50] VITALS: BP 128/80; BP 132/76; PULSE 89; RESP 16; TEMP 36.9; O2SAT 100
--- NOTE | 2022-03-17 07:52 | OP.PCM_ITS ---
Report of Operation Date of Procedure: 03/17/22 Description of Surgical Findings:: PREOPERATIVE DIAGNOSIS: Cervical spondylosis, cervical degenerative disc disease, cervical facet arthropathy POSTOPERATIVE DIAGNOSIS: Cervical spondylosis, cervical degenerative disc disease, cervical facet arthropathy PROCEDURE PERFORMED: Right-sided cervical medial branch block at C3, C4, C5, and C6. ANESTHESIA: MAC. BLOOD LOSS: Minimal. COMPLICATIONS: None. DESCRIPTION OF PROCEDURE: History and physical of today was reviewed. Risks and benefits of the procedure were explained. The patient understood and agreed to proceed. Informed consent was obtained. IV inserted per routine protocol. The patient was taken to the operating room and placed in the prone position with a pillow positioned underneath the chest. The neck area was prepped and draped in a sterile fashion using iodine x3. Under fluoroscopy guidance on an AP view, the C3 through C6 vertebral bodies were visualized at approximately 10- degree angle, starting on the right C3, ending on the right C6, passing through the C4 and C5. Using a 25-gauge 3-1/2-inch spinal needle, the needle was advanced via the skin. The tip of the needle was maneuvered and directed tow ards the epiphyseal junction of each corresponding vertebra. Once the tip of the needle was at the vicinity of the medial branch, the needle was pulled approximately 2 mm off the bone. After negative aspiration of blood or CSF and confirmation on AP, oblique as well as lateral view, a total of 4 mL of preservative-free 0.25% Marcaine with 80 mg of Depo-Medrol was injected in divided doses between those four levels. The needles were then removed intact. The patient experienced no sign or symptoms of intrathecal or intravascular injection. The patient experienced no paresthesia. The procedure was completed without any apparent difficulty or any complications. The patient appeared to tolerate it well. ASSESSMENT AND PLAN: This is an 81-year-old female with cervical spondylosis, cervical degenerative disc disease, cervical facet arthropathy status post right-sided cervical medial branch block at C3-C6, patient will continue her current medications, patient will follow approximately 2 weeks for reevaluation.
[2022-03-17 07:55] VITALS: BP 127/81; BP 132/76; PULSE 87; RESP 14; O2SAT 98
[2022-03-17 08:00] VITALS: BP 131/82; BP 132/76; PULSE 87; RESP 16; TEMP 36.9; O2SAT 99
[2022-03-17 08:19] VITALS: BP 132/76
== END 2022-03-17 08:32 | disposition home or self-care (01) ==
LOC: SDC 06:04 → AC 06:05
PROVIDERS: PCP Family Medicine; Referring Provider Anesthesiology Pain Medicine; Visit Provider Anesthesiology Pain Medicine
PROC: 3E0S3BZ Introduction of Anesthetic Agent into Epidural Space, Percutaneous Approach (ICD-10-PCS; CPT 62322; principal; 2022-03-17 07:25)
DX: M47.812 Spondylosis without myelopathy or radiculopathy, cervical region (principal); F20.9 Schizophrenia, unspecified; F31.9 Bipolar disorder, unspecified; M50.30 Other cervical disc degeneration, unspecified cervical region; I10 Essential (primary) hypertension; K21.9 Gastro-esophageal reflux disease without esophagitis; Z79.82 Long term (current) use of aspirin; Z79.899 Other long term (current) drug therapy; E07.9 Disorder of thyroid, unspecified; Z79.890 Hormone replacement therapy; F41.9 Anxiety disorder, unspecified; M19.90 Unspecified osteoarthritis, unspecified site; M54.2 Cervicalgia
CPT/HCPCS: 64491; 64492; 01992; 64490; 72040; J7120

== ENCOUNTER → 2022-04-03 | Outpatient (REF) | payer MEDICARE, MEDICAID, SELFPAY ==
[2022-04-03 09:19] LABS: Vitamin B12 564 pg/mL (211-911)
[2022-04-03 09:35] LABS: Hemoglobin A1c 5.8 % (3.8-5.6)
[2022-04-10 10:22] LABS: VITAMIN B6 3.5 ug/L (3.4-65.2); Vitamin B1, Thiamine 189.8 nmol/L (66.5-200.0)
== END ==
LOC: OLS.WCC 05:00
PROVIDERS: PCP Family Medicine; Visit Provider Family Medicine
DX: G62.9 Polyneuropathy, unspecified (principal); R53.1 Weakness; R53.83 Other fatigue; Z79.899 Other long term (current) drug therapy
CPT/HCPCS: 36415; 82607; 83036; 84207; 84425

== ENCOUNTER → 2022-04-10 | Outpatient (REF) | payer MEDICARE, MEDICAID, SELFPAY ==
[2022-04-10 09:26] LABS: Hematocrit 37.6 % (37-47); Hemoglobin 11.9 g/dL (12.0-15.0); Mean Corp Hgb Conc 31.6 g/dL (32-36); Mean Corpuscular Hgb 31.2 pg (27.0-32.0); Mean Corpuscular Volume 98.4 fL (81-99); Platelet Count 136 K/mm3 (150-450); RBC Distribution Width CV 13.1 % (11.6-14.6); RBC Distribution Width SD 46.7 fl (35.1-43.9); Red Blood Count 3.82 M/mm3 (4.2-5.4); White Blood Count 6.4 K/mm3 (4.4-11.0)
[2022-04-10 09:43] LABS: AST(SGOT) 7 U/L (15-37); Alanine Aminotransfer ALT/SGPT 8 U/L (13-56); Albumin, Serum 2.3 g/dL (3.2-5.0); Alkaline Phosphatase 74 U/L (45-117); Bilirubin, Direct 0.13 mg/dL (0.00-0.30); Globulin 3.4 g/dL (2.2-4.2); Protein, Total 5.7 g/dL (6.4-8.2)
[2022-04-10 09:48] LABS: Valproic Acid (Depakene) Level 51 ug/mL (50-100)
== END ==
LOC: OLS.WCC 05:00
PROVIDERS: PCP Family Medicine; Visit Provider Family Medicine
DX: I11.0 Hypertensive heart disease with heart failure (principal); I50.9 Heart failure, unspecified; F03.90 Unspecified dementia, unspecified severity, without behavioral disturbance, psychotic disturbance, mood disturbance, and anxiety; Z79.899 Other long term (current) drug therapy
CPT/HCPCS: 36415; 80076; 80164; 85027

== ENCOUNTER → 2022-06-11 | Outpatient (REF) | payer MEDICARE, MEDICAID, SELFPAY ==
[2022-06-11 09:04] LABS: ALB/GLOB Ratio 0.7 RATIO (0.9-2.4); AST(SGOT) 13 U/L (15-37); Alanine Aminotransfer ALT/SGPT 7 U/L (13-56); Albumin, Serum 2.6 g/dL (3.2-5.0); Alkaline Phosphatase 95 U/L (45-117); Anion Gap 7 (5-15); BUN 32 mg/dL (7-18); BUN/Creat Ratio 61.8 RATIO (10-20); Calcium,Total 8.7 mg/dL (8.5-10.1); Chloride 106 mmol/L (98-107); Creatinine, Serum 0.52 mg/dL (0.55-1.02); EST Glomerular Filtration Rate 121 mL/min (>60); Est Glom Filt Rate - Afr Amer 146 mL/min (>60); Globulin 3.5 g/dL (2.2-4.2); Glucose 96 mg/dL (74-106); Potassium 3.9 mmol/L (3.5-5.1); Protein, Total 6.1 g/dL (6.4-8.2); Sodium Level 143 mmol/L (136-145); Thyroid Stim Hormone (TSH) 4.44 uIU/mL (0.358-3.74)
== END ==
LOC: OLS.WCC 05:00
PROVIDERS: PCP Family Medicine; Visit Provider Family Medicine
DX: I11.0 Hypertensive heart disease with heart failure (principal); I50.9 Heart failure, unspecified; F03.90 Unspecified dementia, unspecified severity, without behavioral disturbance, psychotic disturbance, mood disturbance, and anxiety; E03.9 Hypothyroidism, unspecified
CPT/HCPCS: 36415; 80053; 84443

== ENCOUNTER 2022-07-14 08:10 | Day surgery (SDC) | payer MEDICARE, MEDICAID, SELFPAY ==
[2022-07-14 08:44] VITALS: BP 116/84; PULSE 104; RESP 18; TEMP 36.6; O2SAT 99; BMI 217.4
--- NOTE | 2022-07-14 08:50 | RAD_ITS ---
PROCEDURE: Left C3-C6 medial branch nerve block. DATE OF EXAMINATION: July 14, 2022. INDICATION: Female, 81 years old. Chronic neck pain. FLUOROSCOPY TIME (if supplied): (11 seconds) minutes/seconds. 5 images were obtained. RADIATION DOSAGE (If Supplied By Facility): ( 1.51 ) mGycm RAD/Cerv Spine 4 or 5 Views IMPRESSION: Intraoperative imaging provided for left C3-C6 medial branch nerve block. Electronically Signed: Pardeep Long MD at 13:16 EDT ,
[2022-07-14] MEDS: Lactated Ringers 1,000 ML 15 ML IV (09:03)
[2022-07-14] MEDS: MethylPREDNISolone Acetate 80 MG/ML Vial (09:28)
[2022-07-14] MEDS: Bupivacaine 0.25% 30 ML Vial (09:28)
--- NOTE | 2022-07-14 09:51 | OP.PCM_ITS ---
Report of Operation Date of Procedure: 07/14/22 Description of Surgical Findings:: PREOPERATIVE DIAGNOSIS:?Cervical spondylosis, cervical degenerative disc disease, cervical facet arthropathy POSTOPERATIVE DIAGNOSIS:Cervical spondylosis, cervical degenerative disc disease, cervical facet arthropathy PROCEDURE PERFORMED:?Left-sided cervical medial branch block at C3, C4, C5, C6. ANESTHESIA: Local BLOOD LOSS:? Minimal. COMPLICATIONS:? None. DESCRIPTION OF PROCEDURE:? History and physical of today was reviewed.? Risks and benefits of the procedure were explained.? The patient understood and agreed to proceed.? Informed consent was obtained.? IV inserted per routine protocol.? The patient was taken to the operating room and placed in the prone position with a pillow positioned underneath the chest.? The neck area was prepped and draped in a sterile fashion using iodine x3.? Under fluoroscopy guidance on an AP view, the C4 through C7 vertebral bodies were visualized at approximately 10- degree angle, starting on the right C4, ending on the right C7, passing through the C5 and C6.? Using a 25-gauge 3-1/2-inch spinal needle, the needle was advanced via the skin.? The tip of the needle was maneuvered and directed towards the epiphyseal junction of each corresponding vertebra.? Once the tip of the needle was at the vicinity of the medial branch, the needle was pulled approximately 2 mm off the bone.? After negative aspiration of blood or CSF and confirmation on AP, oblique as well as lateral view, a total of 4 mL of preservative-free 0.25% Marcaine with 80 mg of Depo-Medrol was injected in divided doses between those four levels.? The needles were then removed intact.? The patient experienced no sign or symptoms of intrathecal or intravascular injection.? The patient experienced no paresthesia.? The procedure was completed without any apparent difficulty or any complications.? The patient appeared to tolerate it well. ASSESSMENT AND PLAN:? This is a 81-year-old female with cervical spondylosis, cervical degenerative disc disease, cervical facet arthropathy, status post right-sided cervical medial branch block at C3-C6, patient will continue her current medications, patient will follow in approximately 1 to 2 weeks for reevaluation.
== END 2022-07-14 09:54 | disposition home or self-care (01) ==
LOC: SDC 08:14 → AC 08:15
PROVIDERS: PCP Family Medicine; Referring Provider Anesthesiology Pain Medicine; Visit Provider Anesthesiology Pain Medicine
PROC: 3E0S3BZ Introduction of Anesthetic Agent into Epidural Space, Percutaneous Approach (ICD-10-PCS; CPT 62322; principal; 2022-07-14 09:45)
DX: M47.812 Spondylosis without myelopathy or radiculopathy, cervical region (principal); F20.9 Schizophrenia, unspecified; F31.9 Bipolar disorder, unspecified; M50.30 Other cervical disc degeneration, unspecified cervical region; I10 Essential (primary) hypertension; K21.9 Gastro-esophageal reflux disease without esophagitis
CPT/HCPCS: 64490; 72050; J7120

== ENCOUNTER → 2022-07-24 | Outpatient (REF) | payer MEDICARE, MEDICAID, SELFPAY ==
[2022-07-24 09:13] LABS: Vitamin D,25 Hydroxy 23.6 ng/mL
[2022-07-24 09:17] LABS: T4 Total, Thyroxin 8.1 ug/dL (4.8-13.9); Thyroid Stim Hormone (TSH) 1.52 uIU/mL (0.358-3.74)
== END ==
LOC: OLS.WCC 05:00
PROVIDERS: PCP Family Medicine; Visit Provider Family Medicine
DX: R53.83 Other fatigue (principal); E55.9 Vitamin D deficiency, unspecified; Z79.899 Other long term (current) drug therapy; E03.9 Hypothyroidism, unspecified
CPT/HCPCS: 36415; 82306; 84436; 84443

== ENCOUNTER → 2022-10-09 | Outpatient (REF) | payer MEDICARE, MEDICAID, SELFPAY ==
[2022-10-09 09:27] LABS: Hematocrit 35.6 % (37-47); Hemoglobin 11.5 g/dL (12.0-15.0); Mean Corp Hgb Conc 32.3 g/dL (32-36); Mean Corpuscular Hgb 31.6 pg (27.0-32.0); Mean Corpuscular Volume 97.8 fL (81-99); Mean Platelet Vol. 11.1 fl (6.2-12.0); Platelet Count 134 K/mm3 (150-450); RBC Distribution Width CV 13.5 % (11.6-14.6); RBC Distribution Width SD 48.8 fl (35.1-43.9); Red Blood Count 3.64 M/mm3 (4.2-5.4); White Blood Count 5.4 K/mm3 (4.4-11.0)
[2022-10-09 09:32] LABS: Valproic Acid (Depakene) Level 59 ug/mL (50-100)
[2022-10-09 09:45] LABS: AST(SGOT) 5 U/L (15-37); Alanine Aminotransfer ALT/SGPT < 6 U/L (13-56); Albumin, Serum 2.2 g/dL (3.2-5.0); Alkaline Phosphatase 104 U/L (45-117); Globulin 3.4 g/dL (2.2-4.2); Magnesium 2.3 mg/dL (1.6-2.6); Protein, Total 5.6 g/dL (6.4-8.2)
== END ==
LOC: OLS.WCC 05:00
PROVIDERS: PCP Family Medicine; Visit Provider Family Medicine
DX: I11.0 Hypertensive heart disease with heart failure (principal); I50.9 Heart failure, unspecified; F03.90 Unspecified dementia, unspecified severity, without behavioral disturbance, psychotic disturbance, mood disturbance, and anxiety; E78.00 Pure hypercholesterolemia, unspecified; Z79.899 Other long term (current) drug therapy
CPT/HCPCS: 36415; 80076; 80164; 83735; 85027

== ENCOUNTER → 2022-12-10 | Outpatient (REF) | payer MEDICARE, MEDICAID, SELFPAY ==
[2022-12-10 09:01] LABS: ALB/GLOB Ratio 0.7 RATIO (0.9-2.4); AST(SGOT) 10 U/L (15-37); Alanine Aminotransfer ALT/SGPT 7 U/L (13-56); Albumin, Serum 2.6 g/dL (3.2-5.0); Alkaline Phosphatase 110 U/L (45-117); Anion Gap 4 (5-15); BUN 18 mg/dL (7-18); Calcium,Total 8.7 mg/dL (8.5-10.1); Chloride 105 mmol/L (98-107); Creatinine, Serum 0.49 mg/dL (0.55-1.02); EST Glomerular Filtration Rate 130 mL/min (>60); Est Glom Filt Rate - Afr Amer 157 mL/min (>60); Globulin 3.8 g/dL (2.2-4.2); Glucose 90 mg/dL (74-106); Potassium 3.7 mmol/L (3.5-5.1); Protein, Total 6.4 g/dL (6.4-8.2); Sodium Level 142 mmol/L (136-145); Thyroid Stim Hormone (TSH) 2.42 uIU/mL (0.358-3.74)
== END ==
LOC: OLS.WCC 05:00
PROVIDERS: PCP Family Medicine; Visit Provider Family Medicine
DX: I11.0 Hypertensive heart disease with heart failure (principal); I50.9 Heart failure, unspecified; F03.90 Unspecified dementia, unspecified severity, without behavioral disturbance, psychotic disturbance, mood disturbance, and anxiety; E03.9 Hypothyroidism, unspecified
CPT/HCPCS: 36415; 80053; 84443

== ENCOUNTER → 2023-04-10 | Outpatient (REF) | payer MEDICARE, MEDICAID, SELFPAY ==
[2023-04-10 08:43] LABS: Hematocrit 38.2 % (37-47); Hemoglobin 11.9 g/dL (12.0-15.0); Mean Corp Hgb Conc 31.2 g/dL (32-36); Mean Corpuscular Hgb 30.1 pg (27.0-32.0); Mean Corpuscular Volume 96.7 fL (81-99); Mean Platelet Vol. 10.8 fl (6.2-12.0); Platelet Count 148 K/mm3 (150-450); RBC Distribution Width CV 13.4 % (11.6-14.6); RBC Distribution Width SD 47.7 fl (35.1-43.9); Red Blood Count 3.95 M/mm3 (4.2-5.4); White Blood Count 6.4 K/mm3 (4.4-11.0)
[2023-04-10 08:54] LABS: Valproic Acid (Depakene) Level 57 ug/mL (50-100)
== END ==
LOC: OLS.WCC 04:00
PROVIDERS: PCP Family Medicine; Referring Provider Family Medicine; Visit Provider Family Medicine
DX: I11.0 Hypertensive heart disease with heart failure (principal); I50.9 Heart failure, unspecified; F03.90 Unspecified dementia, unspecified severity, without behavioral disturbance, psychotic disturbance, mood disturbance, and anxiety; E78.00 Pure hypercholesterolemia, unspecified
CPT/HCPCS: 36415; 80164; 85027

== ENCOUNTER 2023-04-13 07:38 | Day surgery (SDC) | payer MEDICARE, MEDICAID, SELFPAY ==
[2023-04-13 08:16] VITALS: BP 132/81; PULSE 93; RESP 18; TEMP 36.6; O2SAT 99
[2023-04-13] MEDS: Lactated Ringers 1,000 ML 15 ML IV (08:20)
--- NOTE | 2023-04-13 08:30 | RAD_ITS ---
PROCEDURE: Left cervical medial branch nerve block. DATE OF EXAMINATION: April 13, 2023. INDICATION: Female, 82 years old. Neck pain. FLUOROSCOPY TIME (if supplied): (12.5 seconds) minutes/seconds. 1.16 mgy. 4 Fluoroscopy images were obtained. RAD/Cerv Spine 4 or 5 Views IMPRESSION: Intraoperative fluoroscopic services provided for left cervical medial branch nerve block. Electronically Signed: Pardeep Long MD at 11:20 EST ,
[2023-04-13] MEDS: MethylPREDNISolone Acetate 80 MG/ML Vial (09:34)
--- NOTE | 2023-04-13 09:40 | OP.PCM_ITS ---
Report of Operation Date of Procedure: 04/13/23 Description of Surgical Findings:: PREOPERATIVE DIAGNOSIS:?Cervical spondylosis, cervical degenerative disc disease, cervical facet arthropathy POSTOPERATIVE DIAGNOSIS:Cervical spondylosis, cervical degenerative disc disease, cervical facet arthropathy PROCEDURE PERFORMED:?Left-sided cervical medial branch block at C3, C4, C5, C6. ANESTHESIA: MAC BLOOD LOSS:? Minimal. COMPLICATIONS:? None. DESCRIPTION OF PROCEDURE:? History and physical of today was reviewed.? Risks and benefits of the procedure were explained.? The patient understood and agreed to proceed.? Informed consent was obtained.? IV inserted per routine protocol.? The patient was taken to the operating room and placed in the prone position with a pillow positioned underneath the chest.? The neck area was prepped and draped in a sterile fashion using iodine x3.? Under fluoroscopy guidance on an AP view, the C4 through C7 vertebral bodies were visualized at approximately 10- degree angle, starting on the left C3, ending on the left C6, passing through th e C4 and C5.? Using a 25-gauge 3-1/2-inch spinal needle, the needle was advanced via the skin.? The tip of the needle was maneuvered and directed towards the epiphyseal junction of each corresponding vertebra.? Once the tip of the needle was at the vicinity of the medial branch, the needle was pulled approximately 2 mm off the bone.? After negative aspiration of blood or CSF and confirmation on AP, oblique as well as lateral view, a total of 4 mL of preservative-free 0.25% Marcaine with 80 mg of Depo-Medrol was injected in divided doses between those four levels.? The needles were then removed intact.? The patient experienced no sign or symptoms of intrathecal or intravascular injection.? The patient experienced no paresthesia.? The procedure was completed without any apparent difficulty or any complications.? The patient appeared to tolerate it well. ASSESSMENT AND PLAN:? This is a 82-year-old female with cervical spondylosis, cervical degenerative disc disease, cervical facet arthropathy, status post left-sided cervical medial branch block at C3-C6, patient will continue her current medications, patient will follow up in approximately 1 to 2 weeks for reevaluation.
[2023-04-13 09:45] VITALS: BP 132/81; BP 94/52; PULSE 88; RESP 18; TEMP 36.6; O2SAT 94
[2023-04-13 09:50] VITALS: BP 101/65; BP 132/81; PULSE 88; RESP 18; O2SAT 95
[2023-04-13 09:55] VITALS: BP 104/64; BP 132/81; PULSE 86; RESP 18; O2SAT 96
[2023-04-13 10:02] VITALS: BP 109/69; BP 132/81; PULSE 84; RESP 18; TEMP 36.6; O2SAT 97
[2023-04-13 10:20] VITALS: BP 132/81
== END 2023-04-13 10:33 | disposition home or self-care (01) ==
LOC: SDC 07:40 → AC 07:44
PROVIDERS: PCP Family Medicine; Referring Provider Anesthesiology Pain Medicine; Visit Provider Anesthesiology Pain Medicine
PROC: 3E0S3BZ Introduction of Anesthetic Agent into Epidural Space, Percutaneous Approach (ICD-10-PCS; CPT 62322; principal; 2023-04-13 09:25)
DX: M47.812 Spondylosis without myelopathy or radiculopathy, cervical region (principal); M46.92 Unspecified inflammatory spondylopathy, cervical region; I50.9 Heart failure, unspecified; F31.9 Bipolar disorder, unspecified; M50.30 Other cervical disc degeneration, unspecified cervical region; I25.10 Atherosclerotic heart disease of native coronary artery without angina pectoris; F41.9 Anxiety disorder, unspecified; K21.9 Gastro-esophageal reflux disease without esophagitis; G20.A1 Parkinson's disease without dyskinesia, without mention of fluctuations; G47.30 Sleep apnea, unspecified; E07.9 Disorder of thyroid, unspecified; Z95.5 Presence of coronary angioplasty implant and graft; Z79.899 Other long term (current) drug therapy; Z79.82 Long term (current) use of aspirin
CPT/HCPCS: 64490; 64491; 72050; J7120

== ENCOUNTER → 2023-06-11 | Outpatient (REF) | payer MEDICARE, MEDICAID, SELFPAY ==
[2023-06-11 09:13] LABS: ALB/GLOB Ratio 0.7 RATIO (0.9-2.4); AST(SGOT) 10 U/L (15-37); Alanine Aminotransfer ALT/SGPT 7 U/L (13-56); Albumin, Serum 2.5 g/dL (3.2-5.0); Alkaline Phosphatase 133 U/L (45-117); Anion Gap 5 (5-15); BUN 29 mg/dL (7-18); Calcium,Total 8.8 mg/dL (8.5-10.1); Chloride 107 mmol/L (98-107); Creatinine, Serum 0.47 mg/dL (0.55-1.02); EST Glomerular Filtration Rate 136 mL/min (>60); Est Glom Filt Rate - Afr Amer 164 mL/min (>60); Globulin 3.7 g/dL (2.2-4.2); Glucose 95 mg/dL (74-106); Potassium 3.5 mmol/L (3.5-5.1); Protein, Total 6.2 g/dL (6.4-8.2); Sodium Level 142 mmol/L (136-145); Thyroid Stim Hormone (TSH) 3.09 uIU/mL (0.358-3.74)
== END ==
LOC: OLS.WCC 04:00
PROVIDERS: PCP Family Medicine; Referring Provider Family Medicine; Visit Provider Family Medicine
DX: I11.0 Hypertensive heart disease with heart failure (principal); I50.9 Heart failure, unspecified; F03.90 Unspecified dementia, unspecified severity, without behavioral disturbance, psychotic disturbance, mood disturbance, and anxiety; E03.9 Hypothyroidism, unspecified
CPT/HCPCS: 36415; 80053; 84443

== ENCOUNTER → 2023-06-17 | Outpatient (REF) | payer MEDICARE, MEDICAID, SELFPAY | LOC: OLS.WCC 23:01 | PROVIDERS: PCP Family Medicine; Visit Provider Family Medicine | DX: R06.2 Wheezing (principal) | CPT/HCPCS: 87633 ==

== ENCOUNTER → 2023-06-30 | Outpatient (REF) | payer MEDICARE, MEDICAID, SELFPAY | LOC: OLS.WCC 14:37 | PROVIDERS: PCP Family Medicine; Visit Provider Family Medicine | DX: R05.9 Cough, unspecified (principal); R06.89 Other abnormalities of breathing | CPT/HCPCS: 87633 ==

== ENCOUNTER 2023-08-31 08:41 | Day surgery (SDC) | payer MEDICARE, MEDICAID, SELFPAY ==
[2023-08-31 09:17] VITALS: BP 124/80; PULSE 102; RESP 14; TEMP 36.8; O2SAT 96; BMI 35.7
--- NOTE | 2023-08-31 10:10 | RAD_ITS ---
PROCEDURE: Right facet joint steroid injection C3-C6. DATE OF EXAMINATION: August 31, 2023. INDICATION: Female, 83 years old. Chronic neck pain. FLUOROSCOPY TIME (if supplied): (9.3 seconds) minutes/seconds. 1.41 mGy. 3 fluoroscopic images were obtained. RAD/Cerv Spine 4 or 5 Views IMPRESSION: Intraoperative fluoroscopic services provided for right C3-C6 facet joint steroid injection. Electronically Signed: Pardeep Long MD at 9:01 EDT ,
[2023-08-31] MEDS: MethylPREDNISolone Acetate 80 MG/ML Vial (10:15)
--- NOTE | 2023-08-31 10:37 | OP.PCM_ITS ---
Report of Operation Date of Procedure: 08/31/23 Description of Surgical Findings:: PREOPERATIVE DIAGNOSIS: Cervical spondylosis, cervical degenerative disc disease, cervical facet arthropathy POSTOPERATIVE DIAGNOSIS: Cervical spondylosis, cervical degenerative disc disease, cervical facet arthropathy PROCEDURE PERFORMED: Right-sided cervical facet steroid injection at C3, C4, C5, and C6. ANESTHESIA: Local BLOOD LOSS: Minimal. COMPLICATIONS: None. DESCRIPTION OF PROCEDURE: History and physical of today was reviewed. Risks and benefits of the procedure were explained. The patient understood and agreed to proceed. Informed consent was obtained. IV inserted per routine protocol. The patient was taken to the operating room and placed in the prone position with a pillow positioned underneath the chest. The neck area was prepped and draped in a sterile fashion using iodine x3. Under fluoroscopy guidance on an AP view, the C3 through C6 vertebral bodies were visualized at approximately 10- degree angle, starting on the right C3, ending on the right C6, passing through the C4 and C5. Using a 25-gauge 3-1/2-inch spinal needle, the needle was advanced via the skin. The tip of the needle was maneuvered and directed towards the epiphyseal junction of each corresponding vertebra. Once the tip of the needle was at the vicinity of the medial branch, the needle was pulled approximately 2 mm off the bone. After negative aspiration of blood or CSF and confirmation on AP, oblique as well as lateral view, a total of 4 mL of preservative-free 0.25% Marcaine with 80 mg of Depo-Medrol was injected in divided doses between those four levels. The needles were then removed intact. The patient experienced no sign or symptoms of intrathecal or intravascular injection. The patient experienced no paresthesia. The procedure was completed without any apparent difficulty or any complications. The patient appeared to tolerate it well. ASSESSMENT AND PLAN: This is an 83-year-old female with cervical spondylosis, cervical degenerative disc disease, cervical facet arthropathy status post right-sided cervical facet steroid injection at C3-C6, patient will continue her current medications, patient will follow approximately 2 weeks for reevaluation.
== END 2023-08-31 11:11 | disposition home or self-care (01) ==
LOC: SDC 08:43 → AC 08:45
PROVIDERS: PCP Family Medicine; Referring Provider Anesthesiology Pain Medicine; Visit Provider Anesthesiology Pain Medicine
PROC: 3E0U3BZ Introduction of Anesthetic Agent into Joints, Percutaneous Approach (ICD-10-PCS; CPT 64490; principal; 2023-08-31 10:15)
DX: M47.812 Spondylosis without myelopathy or radiculopathy, cervical region (principal); M50.30 Other cervical disc degeneration, unspecified cervical region; M46.92 Unspecified inflammatory spondylopathy, cervical region
CPT/HCPCS: 64491; 64490; 72050; J7120

== ENCOUNTER → 2023-10-12 | Outpatient (REF) | payer MEDICARE, MEDICAID, SELFPAY ==
[2023-10-12 08:42] LABS: Hematocrit 38.1 % (37-47); Hemoglobin 11.7 g/dL (12.0-15.0); Mean Corp Hgb Conc 30.7 g/dL (32-36); Mean Corpuscular Hgb 29.3 pg (27.0-32.0); Mean Corpuscular Volume 95.3 fL (81-99); Mean Platelet Vol. 11.7 fl (6.2-12.0); Platelet Count 136 K/mm3 (150-450); RBC Distribution Width CV 14.4 % (11.6-14.6); RBC Distribution Width SD 50.2 fl (35.1-43.9); White Blood Count 7.1 K/mm3 (4.4-11.0)
[2023-10-12 09:26] LABS: Valproic Acid (Depakene) Level 64 ug/mL (50-100)
[2023-10-12 09:29] LABS: AST(SGOT) 13 U/L (15-37); Alanine Aminotransfer ALT/SGPT 8 U/L (13-56); Albumin, Serum 2.5 g/dL (3.2-5.0); Alkaline Phosphatase 136 U/L (45-117); Bilirubin, Direct 0.13 mg/dL (0.00-0.30); Globulin 3.6 g/dL (2.2-4.2); Magnesium 2.2 mg/dL (1.6-2.6); Protein, Total 6.1 g/dL (6.4-8.2)
== END ==
LOC: OLS.WCC 05:00
PROVIDERS: PCP Family Medicine; Visit Provider Family Medicine
DX: I11.0 Hypertensive heart disease with heart failure (principal); I50.9 Heart failure, unspecified; E78.00 Pure hypercholesterolemia, unspecified; F03.90 Unspecified dementia, unspecified severity, without behavioral disturbance, psychotic disturbance, mood disturbance, and anxiety; Z79.899 Other long term (current) drug therapy
CPT/HCPCS: 36415; 80076; 80164; 83735; 85027

== ENCOUNTER 2023-10-26 06:57 | Day surgery (SDC) | payer MEDICARE, MEDICAID, SELFPAY ==
--- NOTE | 2023-10-26 07:18 | PRE.ANES_ITS ---
ASA Classification* ASA Classification ASA Classification: 3 Assessment & Plan Anesthesia* Anesthesia Assessment Anesthesia Assessment: Discussed sedation and/or anesthesia options, risks, benefits, and alternatives with patient/parents/legal guardian/POA. Questions invited. The patient/parents/legal guardian/POA seems to understand and agrees to proceed with anesthesia plan. Reviewed the physical assessment, medical history, allergy history and patient home medications list prior to surgery/procedure/anesthetic and documented any changes. Performed airway and anesthesia risk assessments. Anesthesia Type Anesthesia Type: MAC (see written pre anesthesia record for complete assessment) Anesthesia Focused Assessment* Airway Assessment Mouth opens: >3 cm Mallampati Score: II Focused Labs Anesthesia Preop lab: CBC WBC 7.1 K/mm3 (4.4-11.0) 10/12/23 05:10 RBC 4.00 M/mm3 (4.2-5.4) L 10/12/23 05:10 Hgb 11.7 g/dL (12.0-15.0) L 10/12/23 05:10 Hct 38.1 % (37-47) 10/12/23 05:10 Plt Count 136 K/mm3 (150-450) L 10/12/23 05:10 CHEMISTRY Potassium 3.5 mmol/L (3.5-5.1) 06/11/23 06:15 Sodium 142 mmol/L (136-145) 06/11/23 06:15 Magnesium 2.2 mg/dL (1.6-2.6) 10/12/23 05:10 BUN 29 mg/dL (7-18) H 06/11/23 06:15 Creatinine 0.47 mg/dL (0.55-1.02) L 06/11/23 06:15 Glucose 95 mg/dL (74-106) 06/11/23 06:15 TSH 3.09 uIU/mL (0.358-3.74) 06/11/23 06:15 COAG PT 12.5 SECONDS (11.7-14.9) 01/13/17 10:52 Pre-Assessment Diagnosis/Proposed Procedure Planned Operative Procedure(s): cx radio freq ablation Anesthesia History Anesthesia History - director supply chain: Anesthesia History - director supply chain Hx Hospitalization No 04/10/23 14:46 Any Problems With Anesthesia No 04/10/23 14:46 Cholinesterase deficiency No 04/10/23 14:46 You/Your Family Experience No 04/10/23 14:46 fever (hyperthermia) with Relationship Recent Exposure to Contagious No 04/13/23 08:16 Disease Does patient have nerve No 04/10/23 14:46 stimulator Patient instructed to have device shut off --Does patient have Pacemaker or ICD? When Was Last Pacemaker Check QUESTION #4 FULL TEXT: You/Your Family Experience fever (hyperthermia) with Anesthesia Last Oral Intake Last Oral intake: Last Oral Intake NPO since Meds taken in AM with sips of water? Meds patient instructed to take am of surgery PONV PONV - director supply chain: PONV - director supply chain Female HX of Motion Sickness HX of N/V After Surgery Non-Smoker Duration of Surgery greater than 60 minutes Number of Risk Factors PONV Score Height & Weight Height & Weight: Anesthesia: Height & Weight Height 5 ft 5 in 08/31/23 09:17 Respiratory Assessment Respiratory Assessment - director supply chain: Respiratory Tract Infection Hx - director supply chain Hx Respiratory Tract Infection No 04/10/23 14:46 STOP Sleep Apnea STOP Sleep Apnea - director supply chain: STOP Sleep Apnea - director supply chain Hx Hypertension No 04/10/23 14:46 Hx Sleep Apnea Yes 04/13/23 10:02 CPAP Yes: NOT AWARE IF PATIENT 04/10/23 14:46 STILL USES BIPAP No 04/10/23 14:46 Do you snore loudly (louder than talking or can be heard Do you often feel tired/ fatigued/ sleepy during daytime? Has anyone observed you stop breathing during sleep? STOP Results QUESTION #5 FULL TEXT : Do you snore loudly (louder than talking or can be heard through closed doors)? 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 Specify any problems Hx of Preganancy in last 3 Months Nurse Filling Out Transfusion & Questions: Date: Time: Patient unable to answer at this time (ie. confused, unrespo /Reproduction History /Reproductive History - director supply chain: /Reproductive Hx- director supply chain Hx Now Gestational Age (in weeks): EDC: Hx Hx Para Hx Section SAB Active Medications Active Medications: Current Medications Generic Name Dose Route Start Last Admin Trade Name Freq PRN Reason Stop Dose Admin Lactated Ringer's 1,000 mls @ 15 mls/hr 10/26/23 07:15 IV .Q48H [facility] PFSH Medical History Cardiology follow-up encounter History of CHF (congestive heart failure) Restless legs Asthma ASHD (arteriosclerotic heart disease) PVD (peripheral vascular disease) Cognitive impairment Incontinence of bowel Incontinence of urine Lives in [facility] Neuropathy Uses wheelchair Spasmodic torticollis Painful cervical ROM Parkinson's disease Non-smoker Sleep apnea Hypertension Pain Depression Anxiety Post-menopausal Bipolar disorder Thyroid disease Arthritis Gastric reflux Home Medications ?Medication ?Instructions ?Recorded ?Last Taken ?Type gabapentin 400 mg capsule 300 mg PO QHS 04/06/14 10/08/14 History duloxetine 60 mg capsule,delayed 60 mg PO DAILY 10/08/14 04/13/23 History release potassium chloride 10 mEq 10 meq PO DAILY 03/29/15 Unknown History tablet,extended release(part/cryst) levothyroxine 75 mcg tablet 88 mcg PO DAILY 01/13/17 04/13/23 History aspirin 81 mg chewable tablet 81 mg PO DAILY@0800 10/30/19 Unknown History risperidone 0.5 mg tablet 0.25 mg PO QHS 10/30/19 Unknown History baclofen 5 mg tablet 5 mg PO QHS 09/06/21 Unknown History divalproex 250 mg tablet,delayed 125 mg PO DAILY 09/06/21 04/13/23 History release divalproex 500 mg tablet,delayed 500 mg PO QHS 09/06/21 Unknown History release hydrochlorothiazide 25 mg tablet 25 mg PO DAILY 09/06/21 Unknown History loratadine 10 mg tablet (Loradamed) 10 mg PO DAILY 09/06/21 Unknown History oxycodone 5 mg tablet 5 mg PO Q4H PRN pain 09/06/21 Unknown History polyethylene glycol 3350 17 4 g PO QHS 09/06/21 Unknown History gram/dose oral powder (Miralax) sennosides 8.6 mg capsule (senna) 8.6 mg PO DAILY 09/06/21 Unknown History risperidone 2 mg tablet 2 mg PO QHS 01/10/22 Unknown History carbidopa ER 50 mg-levodopa 200 mg 1 tab PO TID 04/10/23 04/13/23 History tablet,extended release memantine 10 mg tablet 10 mg PO BID 04/10/23 04/13/23 History omeprazole 20 mg capsule,delayed 20 mg PO DAILY 04/10/23 Unknown History release paroxetine HCl 30 mg tablet (Paxil) 30 mg PO DAILY 04/10/23 Unknown History Allergy/AdvReac Type Severity Reaction Status Date / Time bee venom protein (honey bee) Allergy Severe Anaphylaxis Verified 04/13/23 08:15 atorvastatin (From Lipitor) Allergy unknown Verified 04/13/23 08:15 Iodine and Iodide Containing Allergy unknown Verified 04/13/23 08:15 Produc tramadol (From Ultram) AdvReac Other Verified 04/13/23 08:15 Surgical History History of cardiac catheterization Hx of discectomy Hx of appendectomy Hx of hysterectomy History of coronary artery stent placement Hx of total knee arthroplasty Hx of total knee arthroplasty Social History Smoking Status: Never smoker Review of Systems (Anesthesia) ROS Narrative System reviewed and no additional complaints, except as documented.
[2023-10-26 07:20] VITALS: BP 148/86; PULSE 91; RESP 16; TEMP 36.6; O2SAT 94; BMI 35.4
[2023-10-26] MEDS: Lactated Ringers 1,000 ML 15 ML IV (07:27)
--- NOTE | 2023-10-26 07:30 | RAD_ITS ---
PROCEDURE: Right radiofrequency ablation of C4-C7 DATE OF EXAMINATION: 10/26/2023 INDICATION: Female, 83 years old. Chronic neck pain. FLUOROSCOPY TIME (if supplied): (20.8) seconds. 3.42 mGy. 6 fluoroscopic images were obtained. RAD/Cerv Spine 4 or 5 Views IMPRESSION: Intraoperative fluoroscopic services provided for radiofrequency ablation. Images were obtained for documentation only. Electronically Signed: Pepe Diana MD at 9:45 EDT ,
[2023-10-26] MEDS: MethylPREDNISolone Acetate 40 MG/ML Vial (08:34)
[2023-10-26] MEDS: Lidocaine 1% (30 ml sdv) 30 ML Vial (08:34)
[2023-10-26 08:51] VITALS: BP 129/75; BP 148/86; PULSE 87; RESP 16; TEMP 36.5; O2SAT 97
--- NOTE | 2023-10-26 08:52 | PCM.POST.ANE ---
Anesthesia: Postop Eval I Current Vital Signs Temperature: 97.7 F Pulse Rate: 88 Blood Pressure: 129/75 Respiratory Rate: 16 Pulse Ox: 97 Oxygen Delivery Method: Room Air Assessment Airway patent: Yes Spontaneous unlabored respirations: Yes Mental status: Asleep nausea: No Vomiting: No Anesthesia Complication: No Fluid Hydration Crystalloid volume administer (ml): 300 Total IV fluid infused: 300 Progress Note Anesthesia document: Postop Eval 1 completed: Yes
[2023-10-26 08:53] VITALS: BP 129/75; PULSE 88; RESP 16; TEMP 36.5; O2SAT 97
[2023-10-26 08:55] VITALS: BP 126/75; BP 148/86; PULSE 87; RESP 16; O2SAT 95
[2023-10-26 09:00] VITALS: BP 131/76; BP 148/86; PULSE 86; RESP 18; O2SAT 95
[2023-10-26 09:05] VITALS: BP 137/76; BP 148/86; PULSE 85; RESP 16; TEMP 36.6; O2SAT 98
--- NOTE | 2023-10-26 09:05 | PCM.OPRPT ---
Report of Operation Date of Procedure: 10/26/23 Description of Surgical Findings:: PREOPERATIVE DIAGNOSIS: Cervical spondylosis, cervical degenerative disc disease, cervical facet arthropathy POSTOPERATIVE DIAGNOSIS: Cervical spondylosis, cervical degenerative disc disease, cervical facet arthropathy PROCEDURE PERFORMED: Right-sided radiofrequency ablation of the medial branch at C3, C4, C5, C6. ANESTHESIA: MAC. BLOOD LOSS: Minimal. COMPLICATIONS: None. DESCRIPTION OF PROCEDURE: History and physical of today was reviewed. Risks and benefits of the procedure were explained. The patient understood and agreed to proceed. Informed consent was obtained. IV inserted per routine protocol. The patient was taken to the operating room and placed in the prone position with a pillow positioned underneath the chest. The neck area was prepped and draped in a sterile fashion using iodine x3. Under fluoroscopy guidance on an AP view, the C3 through C6 vertebral bodies were visualized. The skin and subcutaneous tissue was anesthetized with approximately 10 mL of 1% lidocaine using a 25-gauge regular needle. Under direct visualization on fluoroscopy on a lateral view, using a 21-gauge 10-cm with a 10-mm curved active-tip radiofrequency ablation needle, the needle was passed through the skin. The tip of the needle was maneuvered and directed towards the epiphyseal junction of each corresponding vertebra, starting on the right C3, ending on the right C6, passing through the C5 and C6. Once the tip of the needle was at the vicinity of the medial branch and at the middle of the trapezoid on the lateral view, the stylette of each needle was then removed. After negative aspiration of blood or CSF and confirmation on AP, oblique as well as lateral view, radiofrequency ablation probe was then inserted at each level. Impedance was then recorded at C3 to be 287 ohm, at C4 to be 271 ohm, at C5 to be 326 ohm, and at C6 to be 254 ohm. Motor-evoked potential was then initiated to 1.5 volt without any motor response to each corresponding level or the right arm. The probe was then removed intact and a total of 4 mL of preservative-free 1% lidocaine was injected in divided doses between those four levels after negative aspiration of blood or CSF. After repeated confirmation, the radiofrequency ablation probe was then inserted and after repeated confirmation on AP, oblique as well as lateral view, radiofrequency ablation was then initiated to approximately 80 degree Celsius for 60 second at each level. Once concluded, the probe was then removed intact. A total of 4 mL of preservative-free 0.25% Marcaine with 40 mg of Depo-Medrol was injected in divided doses between those four levels. The needles were then removed intact. The patient experienced no sign or symptoms of intrathecal or intravascular injection. The patient experienced no paresthesia. The procedure was completed without any apparent difficulty or any complications. The patient appeared to tolerate it well. Sensory as well as motor exam was unchanged from prior to the procedure. ASSESSMENT AND PLAN: This is an 83-year-old female with cervical spondylosis, cervical degenerative disc disease, cervical facet arthropathy status post right-sided cervical radiofrequency ablation of the medial branch at C3-C6, patient will continue her current medications, patient will follow-up in approximately 2 to 3 weeks for reevaluation.
--- NOTE | 2023-10-26 09:38 | PCM.POSTANE2 ---
Anesthesia Postop Eval I Sum Postop Eval Completion status Anesthesia document: Postop Eval 1 completed: Yes Anesthesia Postop Eval I Summary Anesthesia Postop Eval I Summary: Anesthesia Postop Eval I: Assessment Summary Airway patent Yes 10/26/23 08:53 Spontaneous unlabored Yes 10/26/23 08:53 respirations Mental status Asleep 10/26/23 08:53 nausea No 10/26/23 08:53 Vomiting No 10/26/23 08:53 Anesthesia Postop Eval I: Fluid Summary Crystalloid volume administer 300 10/26/23 08:53 (ml) Colloids volume administered ( ml) Blood Product volume administered (ml) Total IV fluid infused 300 10/26/23 08:53 Anesthesia Postop Eval I: Summary Notes Anesthesia Complication No 10/26/23 08:53 Anesthesia Complication Comment: Post-operative progress note Anesthesia: Postop Eval II Evaluation Mental status: Awake Pain Level: 0 nausea: No Vomiting: No
== END 2023-10-26 09:41 | disposition home or self-care (01) ==
LOC: SDC 06:59 → AC 07:00
PROVIDERS: PCP Family Medicine; Referring Provider Anesthesiology Pain Medicine; Visit Provider Anesthesiology Pain Medicine
PROC: (CPT 64633; principal; 2023-10-26 08:25)
DX: M47.812 Spondylosis without myelopathy or radiculopathy, cervical region (principal); G20.A1 Parkinson's disease without dyskinesia, without mention of fluctuations; F31.9 Bipolar disorder, unspecified; M50.30 Other cervical disc degeneration, unspecified cervical region; M46.92 Unspecified inflammatory spondylopathy, cervical region; E07.9 Disorder of thyroid, unspecified; G47.30 Sleep apnea, unspecified; F41.9 Anxiety disorder, unspecified; K21.9 Gastro-esophageal reflux disease without esophagitis; Z79.82 Long term (current) use of aspirin; Z79.899 Other long term (current) drug therapy; Z95.5 Presence of coronary angioplasty implant and graft
CPT/HCPCS: 64633; 64634; 01992; 72050; 76000; J7120; J2405

== ENCOUNTER → 2023-12-11 | Outpatient (REF) | payer MEDICARE, MEDICAID, SELFPAY ==
[2023-12-11 07:50] LABS: ALB/GLOB Ratio 0.7 RATIO (0.9-2.4); AST(SGOT) 12 U/L (15-37); Alanine Aminotransfer ALT/SGPT 9 U/L (13-56); Albumin, Serum 2.7 g/dL (3.2-5.0); Alkaline Phosphatase 140 U/L (45-117); Anion Gap 6 (5-15); BUN 28 mg/dL (7-18); BUN/Creat Ratio 67.1 RATIO (10-20); Calcium,Total 8.8 mg/dL (8.5-10.1); Chloride 104 mmol/L (98-107); Creatinine, Serum 0.42 mg/dL (0.55-1.02); EST Glomerular Filtration Rate 155 mL/min (>60); Est Glom Filt Rate - Afr Amer 187 mL/min (>60); Glucose 82 mg/dL (74-106); Potassium 3.4 mmol/L (3.5-5.1); Protein, Total 6.7 g/dL (6.4-8.2); Sodium Level 138 mmol/L (136-145)
== END ==
LOC: OLS.WCC 05:00
PROVIDERS: PCP Family Medicine; Visit Provider Family Medicine
DX: E03.9 Hypothyroidism, unspecified (principal); Z79.899 Other long term (current) drug therapy
CPT/HCPCS: 36415; 80053; 84443

== ENCOUNTER 2023-12-14 05:58 | Day surgery (SDC) | payer MEDICARE, MEDICAID, SELFPAY ==
[2023-12-14] VITALS (8 sets, daily range): BP systolic 142–151; BP diastolic 85–92; PULSE 74–83; RESP 14–16; TEMP 36.2–36.5; O2SAT 94–100; BMI 34.9
[2023-12-14] MEDS: Lactated Ringers 1,000 ML 15 ML IV (06:47)
--- NOTE | 2023-12-14 06:56 | PCM.PRE.AN2 ---
ASA Classification* ASA Classification ASA Classification: 3 Assessment & Plan Anesthesia* Anesthesia Assessment Anesthesia Assessment: Discussed sedation and/or anesthesia options, risks, benefits, and alternatives with patient/parents/legal guardian/POA. Questions invited. The patient/parents/legal guardian/POA seems to understand and agrees to proceed with anesthesia plan. Reviewed the physical assessment, medical history, allergy history and patient home medications list prior to surgery/procedure/anesthetic and documented any changes. Performed airway and anesthesia risk assessments. Anesthesia Type Anesthesia Type: MAC (see written pre anesthesia record for full assessment) Anesthesia Focused Assessment* Temperature: 97.2 F Pulse Rate: 83 Blood Pressure: 142/89 Respiratory Rate: 16 Pulse Ox: 94 Airway Assessment Mouth opens: >3 cm Mallampati Score: III Focused Labs Anesthesia Preop lab: CBC WBC 7.1 K/mm3 (4.4-11.0) 10/12/23 05:10 RBC 4.00 M/mm3 (4.2-5.4) L 10/12/23 05:10 Hgb 11.7 g/dL (12.0-15.0) L 10/12/23 05:10 Hct 38.1 % (37-47) 10/12/23 05:10 Plt Count 136 K/mm3 (150-450) L 10/12/23 05:10 CHEMISTRY Potassium 3.4 mmol/L (3.5-5.1) L 12/11/23 06:10 Sodium 138 mmol/L (136-145) 12/11/23 06:10 Magnesium 2.2 mg/dL (1.6-2.6) 10/12/23 05:10 BUN 28 mg/dL (7-18) H 12/11/23 06:10 Creatinine 0.42 mg/dL (0.55-1.02) L 12/11/23 06:10 Glucose 82 mg/dL (74-106) 12/11/23 06:10 TSH 4.490 uIU/mL (0.358-3.740) H 12/11/23 06:10 COAG PT 12.5 SECONDS (11.7-14.9) 01/13/17 10:52 Pre-Assessment Diagnosis/Proposed Procedure Planned Operative Procedure(s): cx radio ablation Anesthesia History Anesthesia History - assistant scientist: Anesthesia History - assistant scientist Hx Hospitalization No 04/10/23 14:46 Any Problems With Anesthesia No 04/10/23 14:46 Cholinesterase deficiency No 04/10/23 14:46 You/Your Family Experience No 04/10/23 14:46 fever (hyperthermia) with Relationship Recent Exposure to Contagious No 12/14/23 06:33 Disease Does patient have nerve No 04/10/23 14:46 stimulator Patient instructed to have device shut off --Does patient have Pacemaker No 12/14/23 06:38 or ICD? When Was Last Pacemaker Check QUESTION #4 FULL TEXT: You/Your Family Experience fever (hyperthermia) with Anesthesia Last Oral Intake Last Oral intake: Last Oral Intake NPO since 00:00 12/14/23 06:38 Meds taken in AM with sips of No 12/14/23 06:38 water? Meds patient instructed to take am of surgery PONV PONV - assistant scientist: PONV - assistant scientist Female HX of Motion Sickness HX of N/V After Surgery Non-Smoker Duration of Surgery greater than 60 minutes Number of Risk Factors PONV Score Height & Weight Height & Weight: Anesthesia: Height & Weight Height 5 ft 5 in 12/14/23 06:38 Weight: 95.164 kg 12/14/23 06:38 Body Mass Index (BMI) 34.9 12/14/23 06:38 Respiratory Assessment Respiratory Assessment - assistant scientist: Respiratory Tract Infection Hx - assistant scientist Hx Respiratory Tract Infection No 04/10/23 14:46 STOP Sleep Apnea STOP Sleep Apnea - assistant scientist: STOP Sleep Apnea - assistant scientist Hx Hypertension No 04/10/23 14:46 Hx Sleep Apnea Yes 04/13/23 10:02 CPAP Yes: NOT AWARE IF PATIENT 10/26/23 08:51 STILL USES BIPAP No 04/10/23 14:46 Do you snore loudly (louder than talking or can be heard Do you often feel tired/ fatigued/ sleepy during daytime? Has anyone observed you stop breathing during sleep? STOP Results QUESTION #5 FULL TEXT : Do you snore loudly (louder than talking or can be heard through closed doors)? 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 Specify any problems Hx of Preganancy in last 3 Months Nurse Filling Out Transfusion & Questions: Date: Time: Patient unable to answer at this time (ie. confused, unrespo /Reproduction History /Reproductive History - assistant scientist: /Reproductive Hx- assistant scientist Hx Now Gestational Age (in weeks): EDC: Hx Hx Para Hx Section SAB Active Medications Active Medications: Current Medications Generic Name Dose Route Start Last Admin Trade Name Freq PRN Reason Stop Dose Admin Lactated Ringer's 1,000 mls @ 15 mls/hr 12/14/23 06:15 12/14/23 06:47 IV 15 mls/hr .Q48H VANESSA Administration PFSH Medical History Cardiology follow-up encounter History of CHF (congestive heart failure) Restless legs Asthma ASHD (arteriosclerotic heart disease) PVD (peripheral vascular disease) Cognitive impairment Incontinence of bowel Incontinence of urine Lives in jail Neuropathy Uses wheelchair Spasmodic torticollis Painful cervical ROM Parkinson's disease Non-smoker Sleep apnea Hypertension Pain Depression Anxiety Post-menopausal Bipolar disorder Thyroid disease Arthritis Gastric reflux Home Medications ?Medication ?Instructions ?Recorded ?Last Taken ?Type gabapentin 400 mg capsule 300 mg PO QHS 04/06/14 10/08/14 History duloxetine 60 mg capsule,delayed 60 mg PO DAILY 10/08/14 04/13/23 History release potassium chloride 10 mEq 10 meq PO DAILY 03/29/15 Unknown History tablet,extended release(part/cryst) levothyroxine 75 mcg tablet 88 mcg PO DAILY 01/13/17 04/13/23 History aspirin 81 mg chewable tablet 81 mg PO DAILY@0800 10/30/19 Unknown History risperidone 0.5 mg tablet 0.25 mg PO QHS 10/30/19 Unknown History baclofen 5 mg tablet 5 mg PO QHS 09/06/21 Unknown History divalproex 250 mg tablet,delayed 125 mg PO DAILY 09/06/21 04/13/23 History release divalproex 500 mg tablet,delayed 500 mg PO QHS 09/06/21 Unknown History release hydrochlorothiazide 25 mg tablet 25 mg PO DAILY 09/06/21 Unknown History loratadine 10 mg tablet (Loradamed) 10 mg PO DAILY 09/06/21 Unknown History oxycodone 5 mg tablet 5 mg PO Q4H PRN pain 09/06/21 Unknown History polyethylene glycol 3350 17 4 g PO QHS 09/06/21 Unknown History gram/dose oral powder (Miralax) sennosides 8.6 mg capsule (senna) 8.6 mg PO DAILY 09/06/21 Unknown History risperidone 2 mg tablet 2 mg PO QHS 01/10/22 Unknown History carbidopa ER 50 mg-levodopa 200 mg 1 tab PO TID 04/10/23 04/13/23 History tablet,extended release memantine 10 mg tablet 10 mg PO BID 04/10/23 04/13/23 History omeprazole 20 mg capsule,delayed 20 mg PO DAILY 04/10/23 Unknown History release paroxetine HCl 30 mg tablet (Paxil) 30 mg PO DAILY 04/10/23 Unknown History Allergy/AdvReac Type Severity Reaction Status Date / Time bee venom protein (honey bee) Allergy Severe Anaphylaxis Verified 10/26/23 07:19 atorvastatin (From Lipitor) Allergy unknown Verified 10/26/23 07:19 Iodine and Iodide Containing Allergy unknown Verified 10/26/23 07:19 Produc tramadol (From Ultram) AdvReac Other Verified 10/26/23 07:19 Surgical History History of cardiac catheterization Hx of discectomy Hx of appendectomy Hx of hysterectomy History of coronary artery stent placement Hx of total knee arthroplasty Hx of total knee arthroplasty Social History Smoking Status: Never smoker Review of Systems (Anesthesia) ROS Narrative System reviewed and no additional complaints, except as documented.
--- NOTE | 2023-12-14 07:40 | RAD_ITS ---
STUDY: X-RAY - CERVICAL SPINE REASON FOR EXAM: Female, 83 years old. RADIO FREQ ABLATION MEDIAL BRANCH C3-6,LEFT TECHNIQUE: 4 view(s) of the cervical spine were obtained. COMPARISON: None FINDINGS: 18 seconds of fluoroscopy of the cervical spine was utilized operating during nerve root block and 5 images are submitted for interpretation.. . RAD/Cerv Spine 4 or 5 Views IMPRESSION: Fluoroscopy during nerve root block. Electronically Signed: Mahendra Mccord MD at 8:42 EDT ,
[2023-12-14] MEDS: MethylPREDNISolone Acetate 40 MG/ML Vial (07:45)
[2023-12-14] MEDS: Lidocaine 1% (30 ml sdv) 30 ML Vial (07:45)
--- NOTE | 2023-12-14 07:59 | PCM.OPRPT ---
Report of Operation Date of Procedure: 12/14/23 Description of Surgical Findings:: PREOPERATIVE DIAGNOSIS: Cervical spondylosis, cervical degenerative disc disease, cervical facet arthropathy POSTOPERATIVE DIAGNOSIS: Cervical spondylosis, cervical degenerative disc disease, cervical facet arthropathy PROCEDURE PERFORMED: Left-sided radiofrequency ablation of the medial branch at C3, C4, C5, C6. ANESTHESIA: MAC. BLOOD LOSS: Minimal. COMPLICATIONS: None. DESCRIPTION OF PROCEDURE: History and physical of today was reviewed. Risks and benefits of the procedure were explained. The patient understood and agreed to proceed. Informed consent was obtained. IV inserted per routine protocol. The patient was taken to the operating room and placed in the prone position with a pillow positioned underneath the chest. The neck area was prepped and draped in a sterile fashion using iodine x3. Under fluoroscopy guidance on an AP view, the C3 through C6 vertebral bodies were visualized. The skin and subcutaneous tissue was anesthetized with approximately 10 mL of 1% lidocaine using a 25-gauge regular needle. Under direct visualization on fluoroscopy on a lateral view, using a 21-gauge 10-cm with a 10-mm curved active-tip radiofrequency ablation needle, the needle was passed through the skin. The tip of the needle was maneuvered and directed towards the epiphyseal junction of each corresponding vertebra, starting on the left C3, ending on the left C6, passing through the C5 and C6. Once the tip of the needle was at the vicinity of the medial branch and at the middle of the trapezoid on the lateral view, the stylette of each needle was then removed. After negative aspiration of blood or CSF and confirmation on AP, oblique as well as lateral view, radiofrequency ablation probe was then inserted at each level. Impedance was then recorded at C3 to be 238 ohm, at C4 to be 236 ohm, at C5 to be 233 ohm, and at C6 to be 215 ohm. Motor-evoked potential was then initiated to 1.5 volt without any motor response to each corresponding level or the right arm. The probe was then removed intact and a total of 4 mL of preservative-free 1% lidocaine was injected in divided doses between those four levels after negative aspiration of blood or CSF. After repeated confirmation, the radiofrequency ablation probe was then inserted and after repeated confirmation on AP, oblique as well as lateral view, radiofrequency ablation was then initiated to approximately 80 degree Celsius for 60 second at each level. Once concluded, the probe was then removed intact. A total of 4 mL of preservative-free 0.25% Marcaine with 40 mg of Depo-Medrol was injected in divided doses between those four levels. The needles were then removed intact. The patient experienced no sign or symptoms of intrathecal or intravascular injection. The patient experienced no paresthesia. The procedure was completed without any apparent difficulty or any complications. The patient appeared to tolerate it well. Sensory as well as motor exam was unchanged from prior to the procedure. ASSESSMENT AND PLAN: This is an 83-year-old female with cervical spondylosis, cervical degenerative disc disease, cervical facet arthropathy status post left-sided cervical radiofrequency ablation of the medial branch at C3-C6, patient will continue her current medications, patient will follow-up in approximately 2 to 3 weeks for reevaluation.
--- NOTE | 2023-12-14 08:02 | PCM.POST.ANE ---
Anesthesia: Postop Eval I Current Vital Signs Temperature: 97.7 F Pulse Rate: 80 Blood Pressure: 147/89 Respiratory Rate: 16 Pulse Ox: 100 Oxygen Delivery Method: Room Air Assessment Airway patent: Yes Spontaneous unlabored respirations: Yes Mental status: Asleep nausea: No Vomiting: No Anesthesia Complication: No Fluid Hydration Crystalloid volume administer (ml): 400 Total IV fluid infused: 400 Progress Note Anesthesia document: Postop Eval 1 completed: Yes
--- NOTE | 2023-12-14 08:17 | PCM.POSTANE2 ---
Anesthesia Postop Eval I Sum Postop Eval Completion status Anesthesia document: Postop Eval 1 completed: Yes Anesthesia Postop Eval I Summary Anesthesia Postop Eval I Summary: Anesthesia Postop Eval I: Assessment Summary Airway patent Yes 12/14/23 08:02 JERI Spontaneous unlabored Yes 12/14/23 08:02 JERI respirations Mental status Asleep 12/14/23 08:02 [email or web address] nausea No 12/14/23 08:02 [email or web address] Vomiting No 12/14/23 08:02 JERI Anesthesia Postop Eval I: Fluid Summary Crystalloid volume administer 400 12/14/23 08:02 JERI (ml) Colloids volume administered ( ml) Blood Product volume administered (ml) Total IV fluid infused 400 12/14/23 08:02 JERI Anesthesia Postop Eval I: Summary Notes Anesthesia Complication No 12/14/23 08:02 JERI Anesthesia Complication Comment: Post-operative progress note Anesthesia: Postop Eval II Evaluation Mental status: Awake Pain Level: 0 nausea: No Vomiting: No
== END 2023-12-14 08:58 | disposition home or self-care (01) ==
LOC: SDC 06:00 → AC 06:03
PROVIDERS: PCP Family Medicine; Referring Provider Anesthesiology Pain Medicine; Visit Provider Anesthesiology Pain Medicine
PROC: (CPT 64633; principal; 2023-12-14 07:25)
DX: M47.812 Spondylosis without myelopathy or radiculopathy, cervical region (principal); G20.A1 Parkinson's disease without dyskinesia, without mention of fluctuations; F31.9 Bipolar disorder, unspecified; M50.30 Other cervical disc degeneration, unspecified cervical region; F41.9 Anxiety disorder, unspecified; K21.9 Gastro-esophageal reflux disease without esophagitis; E07.9 Disorder of thyroid, unspecified; Z95.5 Presence of coronary angioplasty implant and graft; Z90.49 Acquired absence of other specified parts of digestive tract; Z90.710 Acquired absence of both cervix and uterus; I25.10 Atherosclerotic heart disease of native coronary artery without angina pectoris; I73.9 Peripheral vascular disease, unspecified; G47.33 Obstructive sleep apnea (adult) (pediatric); Z96.653 Presence of artificial knee joint, bilateral; R29.898 Other symptoms and signs involving the musculoskeletal system; Z79.899 Other long term (current) drug therapy; G24.3 Spasmodic torticollis; M62.81 Muscle weakness (generalized)
CPT/HCPCS: 64633; 64634 ×3; 72050; 76000; J7120

== ENCOUNTER → 2024-04-11 05:00 | Outpatient (REF) | payer MEDICARE, MEDICAID, SELFPAY ==
[2024-04-11 08:34] LABS: Hematocrit 40.4 % (37-47); Hemoglobin 12.5 g/dL (12.0-15.0); Mean Corp Hgb Conc 30.9 g/dL (32-36); Mean Corpuscular Hgb 28.9 pg (27.0-32.0); Mean Corpuscular Volume 93.5 fL (81-99); Mean Platelet Vol. 11.4 fl (6.2-12.0); Platelet Count 144 K/mm3 (150-450); RBC Distribution Width SD 48.3 fl (35.1-43.9); Red Blood Count 4.32 M/mm3 (4.2-5.4); White Blood Count 5.9 K/mm3 (4.4-11.0)
[2024-04-11 08:53] LABS: Valproic Acid (Depakene) Level 64 ug/mL (50-100)
[2024-04-11 09:17] LABS: AST(SGOT) 13 U/L (15-37); Alanine Aminotransfer ALT/SGPT 7 U/L (13-56); Albumin, Serum 2.7 g/dL (3.2-5.0); Alkaline Phosphatase 173 U/L (45-117); Bilirubin, Direct 0.14 mg/dL (0.00-0.30); Protein, Total 6.7 g/dL (6.4-8.2)
== END ==
LOC: OLS.WCC 05:00
PROVIDERS: PCP Family Medicine; Visit Provider Family Medicine
DX: I11.0 Hypertensive heart disease with heart failure (principal); I50.9 Heart failure, unspecified; F03.90 Unspecified dementia, unspecified severity, without behavioral disturbance, psychotic disturbance, mood disturbance, and anxiety; E78.00 Pure hypercholesterolemia, unspecified; Z79.899 Other long term (current) drug therapy
CPT/HCPCS: 36415; 80076; 80164; 85027

== ENCOUNTER → 2024-06-13 04:00 | Outpatient (REF) | payer MEDICARE, MEDICAID, SELFPAY ==
[2024-06-13 09:59] LABS: ALB/GLOB Ratio 0.6 RATIO (0.9-2.4); AST(SGOT) 14 U/L (15-37); Alanine Aminotransfer ALT/SGPT 9 U/L (13-56); Albumin, Serum 2.4 g/dL (3.2-5.0); Alkaline Phosphatase 165 U/L (45-117); Anion Gap 7 (5-15); BUN 29 mg/dL (7-18); BUN/Creat Ratio 54.5 RATIO (10-20); Chloride 104 mmol/L (98-107); Creatinine, Serum 0.53 mg/dL (0.55-1.02); EST Glomerular Filtration Rate 117 mL/min (>60); Est Glom Filt Rate - Afr Amer 141 mL/min (>60); Globulin 3.9 g/dL (2.2-4.2); Glucose 85 mg/dL (74-106); Potassium 3.7 mmol/L (3.5-5.1); Protein, Total 6.3 g/dL (6.4-8.2); Sodium Level 139 mmol/L (136-145)
== END ==
LOC: OLS.WCC 04:00
PROVIDERS: PCP Family Medicine; Referring Provider Family Medicine; Visit Provider Family Medicine
DX: I11.0 Hypertensive heart disease with heart failure (principal); I50.9 Heart failure, unspecified; E03.9 Hypothyroidism, unspecified; F03.90 Unspecified dementia, unspecified severity, without behavioral disturbance, psychotic disturbance, mood disturbance, and anxiety; E78.6 Lipoprotein deficiency
CPT/HCPCS: 36415; 80053; 84443

== ENCOUNTER 2024-06-13 09:44 | Day surgery (SDC) | payer MEDICARE, MEDICAID, SELFPAY ==
[2024-06-13] VITALS (7 sets, daily range): BP systolic 117–139; BP diastolic 67–77; PULSE 80–91; RESP 16–20; TEMP 36.1–36.6; O2SAT 96–100; BMI 34.9
--- NOTE | 2024-06-13 10:25 | PCM.PRE.AN2 ---
ASA Classification* ASA Classification ASA Classification: 3 Assessment & Plan Anesthesia* Anesthesia Assessment Anesthesia Assessment: Discussed sedation and/or anesthesia options, risks, benefits, and alternatives with patient/parents/legal guardian/POA. Questions invited. The patient/parents/legal guardian/POA seems to understand and agrees to proceed with anesthesia plan. Reviewed the physical assessment, medical history, allergy history and patient home medications list prior to surgery/procedure/anesthetic and documented any changes. Performed airway and anesthesia risk assessments. Anesthesia Type Anesthesia Type: MAC Anesthesia Focused Assessment* Airway Assessment Mouth opens: >3 cm Mallampati Score: II Focused Labs Anesthesia Preop lab: CBC WBC 5.9 K/mm3 (4.4-11.0) 04/11/24 07:35 04/11/24 RBC 4.32 M/mm3 (4.2-5.4) 04/11/24 07:35 04/11/24 Hgb 12.5 g/dL (12.0-15.0) 04/11/24 07:35 04/11/24 Hct 40.4 % (37-47) 04/11/24 07:35 04/11/24 Plt Count 144 K/mm3 (150-450) L 04/11/24 07:35 04/11/24 CHEMISTRY Potassium 3.7 mmol/L (3.5-5.1) 06/13/24 05:12 06/13/24 Sodium 139 mmol/L (136-145) 06/13/24 05:12 06/13/24 Magnesium 2.2 mg/dL (1.6-2.6) 10/12/23 05:10 10/12/23 BUN 29 mg/dL (7-18) H 06/13/24 05:12 06/13/24 Creatinine 0.53 mg/dL (0.55-1.02) L 06/13/24 05:12 06/13/24 Glucose 85 mg/dL (74-106) 06/13/24 05:12 06/13/24 TSH 1.960 uIU/mL (0.358-3.740) 06/13/24 05:12 06/13/24 COAG PT 12.5 SECONDS (11.7-14.9) 01/13/17 10:52 01/13/17 Pre-Assessment Diagnosis/Proposed Procedure Planned Operative Procedure(s): Caudal block Anesthesia History 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 When Was Last Pacemaker Check QUESTION #4 FULL TEXT: You/Your Family Experience fever (hyperthermia) with Anesthesia Last Oral Intake Last Oral intake: Last Oral Intake NPO since Meds taken in AM with sips of water? Meds patient instructed to take am of surgery PONV PONV - cable assembler and swager: PONV - cable assembler and swager Female HX of Motion Sickness HX of N/V After Surgery Non-Smoker Duration of Surgery greater than 60 minutes Number of Risk Factors PONV Score Height & Weight Height & Weight: Anesthesia: Height & Weight Height 5 ft 5 in 12/14/23 06:38 Respiratory Assessment Respiratory Assessment - cable assembler and swager: Respiratory Tract Infection Hx - cable assembler and swager Hx Respiratory Tract Infection No 04/10/23 14:46 STOP Sleep Apnea STOP Sleep Apnea - cable assembler and swager: STOP Sleep Apnea - cable assembler and swager Hx Hypertension No 04/10/23 14:46 Hx Sleep Apnea Yes 12/14/23 08:19 CPAP Yes: NOT AWARE IF PATIENT 12/14/23 07:59 STILL USES BIPAP No 04/10/23 14:46 Do you snore loudly (louder than talking or can be heard Do you often feel tired/ fatigued/ sleepy during daytime? Has anyone observed you stop breathing during sleep? STOP Results QUESTION #5 FULL TEXT : Do you snore loudly (louder than talking or can be heard through closed doors)? Tobacco Use History Tobacco Use History - cable assembler and swager: Tobacco Use History - cable assembler and swager Tobacco Use Smoking Status Never smoker 04/10/23 14:46 Hx Tobacco Use No 04/10/23 14:46 Years Smoking Packs Smoked per Day Smoking Cessation Date was within the last 15 years Hx Smoking Cessation Date Hx Smoking Cessation Counseling Hematologic Medial History Hematologic Hx - cable assembler and swager: Hematologic Medical Hx - mattress stuffer Hx of Blood Transfusion Hx of Transfusion in last 3 Months Date of Last Transfusion (if within last 3 months) Ever experience any problems with transfusion(s)? Specify any problems Hx of Preganancy in last 3 Months Nurse Filling Out Transfusion & Questions: Date: Time: Patient unable to answer at this time (ie. confused, unrespo /Reproduction History /Reproductive History - cable assembler and swager: /Reproductive Hx- cable assembler and swager Hx Now Gestational Age (in weeks): EDC: Hx Hx Para Hx Section SAB PFSH Medical History Cardiology follow-up encounter History of CHF (congestive heart failure) Restless legs Asthma ASHD (arteriosclerotic heart disease) PVD (peripheral vascular disease) Cognitive impairment Incontinence of bowel Incontinence of urine Lives in intermediate Neuropathy Uses wheelchair Spasmodic torticollis Painful cervical ROM Parkinson's disease Non-smoker Sleep apnea Hypertension Pain Depression Anxiety Post-menopausal Bipolar disorder Thyroid disease Arthritis Gastric reflux Home Medications ?Medication ?Instructions ?Recorded ?Last Taken ?Type potassium chloride 10 mEq 10 meq PO DAILY 03/29/15 Unknown History tablet,extended release(part/cryst) aspirin 81 mg chewable tablet 81 mg PO DAILY@0800 10/30/19 Unknown History risperidone 0.5 mg tablet 0.25 mg PO QHS 10/30/19 Unknown History baclofen 5 mg tablet 5 mg PO QHS 09/06/21 Unknown History divalproex 250 mg tablet,delayed 125 mg PO DAILY 09/06/21 04/13/23 History release divalproex 500 mg tablet,delayed 500 mg PO QHS 09/06/21 Unknown History release hydrochlorothiazide 25 mg tablet 25 mg PO DAILY 09/06/21 Unknown History loratadine 10 mg tablet (Loradamed) 10 mg PO DAILY 09/06/21 Unknown History oxycodone 5 mg tablet 5 mg PO Q4H PRN pain 09/06/21 Unknown History polyethylene glycol 3350 17 4 g PO QHS 09/06/21 Unknown History gram/dose oral powder (Miralax) sennosides 8.6 mg capsule (senna) 8.6 mg PO DAILY 09/06/21 Unknown History carbidopa ER 50 mg-levodopa 200 mg 1 tab PO TID 04/10/23 04/13/23 History tablet,extended release memantine 10 mg tablet 10 mg PO BID 04/10/23 04/13/23 History omeprazole 20 mg capsule,delayed 20 mg PO DAILY 04/10/23 Unknown History release duloxetine 20 mg capsule,delayed 40 mg PO DAILY 06/13/24 Unknown History release sprinkle gabapentin 300 mg capsule 300 mg PO DAILY 06/13/24 Unknown History levothyroxine 100 mcg capsule 100 mcg PO DAILY 06/13/24 Unknown History sertraline 25 mg tablet 25 mg PO DAILY 06/13/24 Unknown History sertraline 50 mg tablet 50 mg PO DAILY 06/13/24 Unknown History Allergy/AdvReac Type Severity Reaction Status Date / Time bee venom protein (honey bee) Allergy Severe Anaphylaxis Verified 06/13/24 10:18 atorvastatin (From Lipitor) Allergy unknown Verified 06/13/24 10:18 Iodine and Iodide Containing Allergy unknown Verified 06/13/24 10:18 Produc tramadol (From Ultram) AdvReac Other Verified 06/13/24 10:18 Surgical History History of cardiac catheterization Hx of discectomy Hx of appendectomy Hx of hysterectomy History of coronary artery stent placement Hx of total knee arthroplasty Hx of total knee arthroplasty Social History Smoking Status: Never smoker Review of Systems (Anesthesia) ROS Narrative System reviewed and no additional complaints, except as documented.
--- NOTE | 2024-06-13 10:45 | RAD_ITS ---
EXAM: FLUOR GUIDANCE FOR SPINE INJ CLINICAL HISTORY: Low back pain. COMPARISON: None. TECHNIQUE: Intraoperative imaging provided for caudal block. FINDINGS: Intraoperative imaging provided for caudal block. RAD/Fluor Guidance for Spine Inj IMPRESSION: Intraoperative imaging provided for caudal block. Reading Location: [id number]
[2024-06-13] MEDS: Bupivacaine 0.25% 30 ML Vial (10:50)
[2024-06-13] MEDS: 0.9% Normal Saline (Pres. free 10 ML Vial (10:50)
[2024-06-13] MEDS: Lidocaine 1% (5 ml sdv) 5 ML Vial (10:50)
[2024-06-13] MEDS: MethylPREDNISolone Acetate 80 MG/ML Vial (10:50)
--- NOTE | 2024-06-13 10:57 | PCM.OPRPT ---
Operative Report (Standard) Operative Information Date of Procedure: 06/13/24 Pre-Operative Diagnosis: 1 Post-Operative Diagnosis: 1 Surgery/Procedure Performed: 1 gas engine performance engineer: No Type of Anesthesia: Local MAC RN Documented Start/Stop Times: Operation Date: 06/13/24 11:00 Case Time Into Pre-Op 06/13/24 09:48 Out of Pre-Op 06/13/24 10:35 Anesthesia Start 06/13/24 10:40 Into Room 06/13/24 10:40 Procedure Start 06/13/24 10:49 Procedure End 06/13/24 10:52 Anesthesia End 06/13/24 10:54 Out of Room 06/13/24 10:54 Into Recovery 06/13/24 10:56 Procedure Start Time: 10:57 Procedure Stop Time: 10:57 Select all DRAINS/GRAFTS/IMPLANTS that apply: None Estimated Blood Loss: 0 Specimen collected: No Description of surgery: PREOPERATIVE DIAGNOSIS: Lumbosacral radiculopathy, lumbosacral degenerative disc disease, lumbosacral spinal stenosis POSTOPERATIVE DIAGNOSIS:Lumbosacral radiculopathy, lumbosacral degenerative disc disease, lumbosacral spinal stenosis PROCEDURE PERFORMED: Diagnostic/therapeutic caudal epidural steroid injection Under fluoroscopic guidance. ANESTHESIA: MAC. BLOOD LOSS: Minimal. COMPLICATIONS: None. DESCRIPTION OF PROCEDURE: History and physical of today was reviewed. Risks and benefits of the procedure were explained. The patient understood and agreed to proceed. Informed consent was obtained. IV inserted per routine protocol. The patient was taken to the operating room and placed in the prone position with a pillow positioned underneath the abdomen. The lower back and tailbone area was prepped and draped in a sterile fashion using iodine x3. Under fluoroscopy guidance on a lateral view, the caudal space was identified. The skin and subcutaneous tissue was anesthetized with approximately 3 mL of 1% lidocaine using a 25-gauge regular needle. Under direct visualization with fluoroscopy, using a 22-gauge 3-1/2-inch spinal needle, the needle was advanced via the skin through the sacral hiatus. The tip of the needle was passed through the sacrococcygeal ligament and advanced to approximately S4 area. After negative aspiration of blood or CSF, a total of 3 mL of contrast was injected to confirm correct placement of the needle as well as cephalad spread. The spread was followed to approximately L5 area. After confirmation on AP as well as lateral view and repeated negative aspiration, a total of 15 mL of preservative-free 0.125% Marcaine with 80 mg of Depo-Medrol was injected easily. The needle was then removed intact. The patient experienced no sign or symptoms of intrathecal or intravascular injection. The patient experienced no paresthesia. The procedure was completed without any apparent difficulty or any complications. The patient appeared to tolerate it well. ASSESSMENT AND PLAN: This is an 83 year-old female with lumbosacral radiculopathy, lumbosacral spinal stenosis, lumbosacral degenerative disc disease status post diagnostic/therapeutic caudal epidural steroid injection, patient will continue her current medications, patient will follow-up in approximately 2 weeks for reevaluation. Surgical Findings: none Complications Complications: No Admit VTE Documentation VTE Mechan Device Prophylaxis: None VTE Pharm Prophylaxis ordered?: No
--- NOTE | 2024-06-13 10:59 | PCM.POST.ANE ---
Anesthesia: Postop Eval I Current Vital Signs Temperature: 97 F Pulse Rate: 85 Blood Pressure: 135/75 Respiratory Rate: 16 Pulse Ox: 100 Assessment Airway patent: Yes Spontaneous unlabored respirations: Yes nausea: No Vomiting: No Anesthesia Complication: No Fluid Hydration Crystalloid volume administer (ml): 10 Total IV fluid infused: 10 Progress Note Anesthesia document: Postop Eval 1 completed: Yes
--- NOTE | 2024-06-13 11:08 | POSTOPAN2_ITS ---
Anesthesia Postop Eval I Sum Postop Eval Completion status Anesthesia document: Postop Eval 1 completed: Yes Anesthesia Postop Eval I Summary Anesthesia Postop Eval I Summary: Anesthesia Postop Eval I: Assessment Summary Airway patent Yes 06/13/24 10:59 PIECE WORK [email or web address] Spontaneous unlabored Yes 06/13/24 10:59 PIECE WORK [email or web address] respirations Mental status nausea No 06/13/24 10:59 PIECE WORK [email or web address] Vomiting No 06/13/24 10:59 PIECE WORK [email or web address] Anesthesia Postop Eval I: Fluid Summary Crystalloid volume administer 10 06/13/24 10:59 PIECE WORK [email or web address] (ml) Colloids volume administered ( ml) Blood Product volume administered (ml) Total IV fluid infused 10 06/13/24 10:59 PIECE WORK [email or web address] Anesthesia Postop Eval I: Summary Notes Anesthesia Complication No 06/13/24 10:59 PIECE WORK [email or web address] Anesthesia Complication Comment: Post-operative progress note Anesthesia: Postop Eval II Evaluation Mental status: Awake Pain Level: 0 nausea: No Vomiting: No
--- NOTE | 2024-06-13 11:08 | PCM.POSTANE2 ---
Anesthesia Postop Eval I Sum Postop Eval Completion status Anesthesia document: Postop Eval 1 completed: Yes Anesthesia Postop Eval I Summary Anesthesia Postop Eval I Summary: Anesthesia Postop Eval I: Assessment Summary Airway patent Yes 06/13/24 10:59 CENTRAL OFFICE EQUIPMENT INSTALLER.[email or web address] Spontaneous unlabored Yes 06/13/24 10:59 CENTRAL OFFICE EQUIPMENT INSTALLER.TNES respirations Mental status nausea No 06/13/24 10:59 CENTRAL OFFICE EQUIPMENT INSTALLER.TNES Vomiting No 06/13/24 10:59 CENTRAL OFFICE EQUIPMENT INSTALLER.TNES Anesthesia Postop Eval I: Fluid Summary Crystalloid volume administer 10 06/13/24 10:59 CENTRAL OFFICE EQUIPMENT INSTALLER.TNES (ml) Colloids volume administered ( ml) Blood Product volume administered (ml) Total IV fluid infused 10 06/13/24 10:59 CENTRAL OFFICE EQUIPMENT INSTALLER.TNES Anesthesia Postop Eval I: Summary Notes Anesthesia Complication No 06/13/24 10:59 CENTRAL OFFICE EQUIPMENT INSTALLER.TNES Anesthesia Complication Comment: Post-operative progress note Anesthesia: Postop Eval II Evaluation Mental status: Awake Pain Level: 0 nausea: No Vomiting: No
== END 2024-06-13 11:51 | disposition home or self-care (01) ==
LOC: SDC 09:46 → AC 09:47
PROVIDERS: PCP Family Medicine; Referring Provider Anesthesiology Pain Medicine; Visit Provider Anesthesiology Pain Medicine
PROC: 3E0S3BZ Introduction of Anesthetic Agent into Epidural Space, Percutaneous Approach (ICD-10-PCS; CPT 62282; principal; 2024-06-13 10:55)
DX: M51.17 Intervertebral disc disorders with radiculopathy, lumbosacral region (principal); G20.A1 Parkinson's disease without dyskinesia, without mention of fluctuations; M48.07 Spinal stenosis, lumbosacral region; I10 Essential (primary) hypertension; Z79.899 Other long term (current) drug therapy
CPT/HCPCS: 62323; 01992; 64483; 77003; A4216

== ENCOUNTER → 2024-08-16 | Outpatient (REF) | payer MEDICARE, MEDICAID, SELFPAY ==
[2024-08-16 07:00] LABS: Hemoglobin 13.2 g/dL (12.0-15.0); Mean Corp Hgb Conc 32.2 g/dL (32-36); Mean Corpuscular Hgb 29.5 pg (27.0-32.0); Mean Corpuscular Volume 91.5 fL (81-99); Mean Platelet Vol. 10.2 fl (6.2-12.0); Platelet Count 133 K/mm3 (150-450); RBC Distribution Width SD 50.5 fl (35.1-43.9); Red Blood Count 4.48 M/mm3 (4.2-5.4); White Blood Count 4.9 K/mm3 (4.4-11.0)
[2024-08-16 07:14] LABS: Anion Gap 9 (5-15); BUN 19 mg/dL (4-19); BUN/Creat Ratio 30.3 RATIO (10-20); Calcium,Total 9.2 mg/dL (7.6-11.0); Carbon Dioxide 28.6 mmol/L (21.0-32.0); Chloride 104 mmol/L (98-108); Creatinine, Serum 0.62 mg/dL (0.70-1.20); EST Glomerular Filtration Rate 88 (>60); Glucose 88 mg/dL (70-99); Potassium 3.9 mmol/L (3.3-5.1); Sodium Level 141 mmol/L (133-145)
== END ==
LOC: OLS.WCC 04:00
PROVIDERS: PCP Family Medicine; Referring Provider Family Medicine; Visit Provider Family Medicine
DX: J44.9 Chronic obstructive pulmonary disease, unspecified (principal); R53.83 Other fatigue; I25.10 Atherosclerotic heart disease of native coronary artery without angina pectoris; Z79.899 Other long term (current) drug therapy
CPT/HCPCS: 36415; 80048; 85027

== ENCOUNTER → 2024-10-11 | Outpatient (REF) | payer MEDICARE, MEDICAID, SELFPAY ==
[2024-10-11 09:14] LABS: Valproic Acid (Depakene) Level 57 ug/mL (50-100)
== END ==
LOC: OLS.WCC 05:00
PROVIDERS: PCP Family Medicine; Visit Provider Family Medicine
DX: F31.32 Bipolar disorder, current episode depressed, moderate (principal); Z79.899 Other long term (current) drug therapy
CPT/HCPCS: 36415; 80164

== ENCOUNTER 2024-11-14 08:35 | Day surgery (SDC) | payer MEDICARE, MEDICAID, SELFPAY ==
--- NOTE | 2024-11-11 14:21 | PAT.ANE_ITS ---
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 When Was Last Pacemaker Check QUESTION #4 FULL TEXT: You/Your Family Experience fever (hyperthermia) with Anesthesia Last Oral Intake Last Oral intake: Last Oral Intake NPO since Meds taken in AM with sips of water? Meds patient instructed to take am of surgery PONV PONV - pipe organ technician: PONV - pipe organ technician Female Yes 11/11/24 11:25 HX of Motion Sickness No 11/11/24 11:25 HX of N/V After Surgery No 11/11/24 11:25 Non-Smoker Yes 11/11/24 11:25 Duration of Surgery greater No 11/11/24 11:25 than 60 minutes Number of Risk Factors 2 11/11/24 11:25 PONV Score Moderate Risk 11/11/24 11:25 Height & Weight Height & Weight: Anesthesia: Height & Weight Height 5 ft 5 in 06/13/24 10:25 Respiratory Assessment Respiratory Assessment - pipe organ technician: Respiratory Tract Infection Hx - pipe organ technician Hx Respiratory Tract Infection No 11/11/24 11:25 STOP Sleep Apnea STOP Sleep Apnea - pipe organ technician: STOP Sleep Apnea - pipe organ technician Hx Hypertension No 11/11/24 11:25 Hx Sleep Apnea No 11/11/24 11:25 CPAP Yes: NOT AWARE IF PATIENT 12/14/23 07:59 STILL USES BIPAP No 11/11/24 11:25 Do you snore loudly (louder No 11/11/24 11:25 than talking or can be heard Do you often feel tired/ No 11/11/24 11:25 fatigued/ sleepy during daytime? Has anyone observed you stop No 11/11/24 11:25 breathing during sleep? STOP Results Negative 11/11/24 11:25 QUESTION #5 FULL TEXT : Do you snore loudly (louder than talking or can be heard through closed doors)? Tobacco Use History Tobacco Use History - pipe organ technician: Tobacco Use History - pipe organ technician Tobacco Use Smoking Status Never smoker 11/11/24 11:25 Hx Tobacco Use No 11/11/24 11:25 Years Smoking Packs Smoked per Day Smoking Cessation Date was within the last 15 years Hx Smoking Cessation Date Hx Smoking Cessation Counseling Hematologic Medial History Hematologic Hx - pipe organ technician: Hematologic Medical Hx - automatic buffer Hx of Blood Transfusion No 11/11/24 11:25 Hx of Transfusion in last 3 No 11/11/24 11:25 Months Date of Last Transfusion (if within last 3 months) Ever experience any problems No 11/11/24 11:25 with transfusion(s)? Specify any problems Hx of Preganancy in last 3 No 11/11/24 11:25 Months Nurse Filling Out Transfusion DSCHRIBER 11/11/24 11:25 & Questions: Date: 11/11/24 11/11/24 11:25 Time: 11:28 11/11/24 11:25 Patient unable to answer at this time (ie. confused, unrespo /Reproduction History /Reproductive History - pipe organ technician: /Reproductive Hx- pipe organ technician Hx Now No 11/11/24 11:25 Gestational Age (in weeks): EDC: Hx Hx Para Hx Section SAB No 11/11/24 11:25 PFSH Medical History (Updated 11/11/24 @ 11:34 by Savannah Gallegos) Cardiology follow-up encounter History of CHF (congestive heart failure) Restless legs Asthma ASHD (arteriosclerotic heart disease) PVD (peripheral vascular disease) Cognitive impairment Incontinence of bowel Incontinence of urine Lives in senior living Neuropathy Uses wheelchair Spasmodic torticollis Painful cervical ROM Parkinson's disease Non-smoker Pain Depression Anxiety Post-menopausal Bipolar disorder Thyroid disease Arthritis Gastric reflux Home Medications ?Medication ?Instructions ?Recorded ?Last Taken ?Type potassium chloride 10 mEq 10 meq PO DAILY 03/29/15 Unk nown History tablet,extended release(part/cryst) aspirin 81 mg chewable tablet 81 mg PO DAILY@0800 09/13 Unknown History risperidone 0.5 mg tablet 0.5 mg PO QHS 10/30/19 Unkno wn History baclofen 5 mg tablet 10 mg PO QHS 09/06/21 Unknow n History hydrochlorothiazide 25 mg tablet 25 mg PO DAILY Unknown History polyethylene glycol 3350 17 4 g PO QHS 09/06/21 Unknow n History gram/dose oral powder (Miralax) sennosides 8.6 mg capsule (senna) 17.2 mg PO DAILY Unknown History carbidopa ER 50 mg-levodopa 200 mg 1 tab PO TID 04/13/23 History tablet,extended release memantine 10 mg tablet 10 mg PO BID 04/10/23 History duloxetine 20 mg capsule,delayed 40 mg PO DAILY Unknown History release sprinkle gabapentin 300 mg capsule 300 mg PO QHS 06/13/24 Unkno wn History levothyroxine 100 mcg capsule 100 mcg PO QHS 06/13/24 Unknown History sertraline 25 mg tablet 25 mg PO DAILY 06/13/24 Unkn own History sertraline 50 mg tablet 50 mg PO DAILY 06/13/24 Unkn own History ammonium lactate 12 % lotion 1 applic topical QHS 10/25 12/19 Unknown History (AmLactin) carbidopa 25 mg-levodopa 100 mg 1 tab PO TID 11/11/24 Unknown History tablet (Sinemet) divalproex 125 mg tablet,delayed 125 mg PO DAILY 11/11 Unknown History release divalproex 125 mg tablet,delayed 500 mg PO QHS 5 Unknown History release fluticasone propionate 50 2 spray intranasal QHS 11/11 Unknown History mcg/actuation nasal spray,suspension hydrocodone-acetaminophen 5-325mg 1 tab PO Q6H PRN john n 11/11/24 Unknown History 5mg-325mg hydrocortisone 2.5 % topical cream 1 applic topical BI D PRN skin 11/11/24 Unknown History irritation lurasidone 40 mg tablet 40 mg PO QPM 11/11/24 Unknow n History menthol 1 applic topical QHS 5 Unknown History mirabegron 25 mg tablet,extended 25 mg PO DAILY Unknown History release 24 hr (Myrbetriq) Allergy/AdvReac Type Severity Reaction Status Date / Time bee venom protein (honey bee) Allergy Severe Anaphylaxis Verified 11/11/24 11:09 atorvastatin (From Lipitor) Allergy unknown Verified 11/11/24 11:09 Iodine and Iodide Containing Allergy unknown Verified 11/11/24 11:09 Produc tramadol (From Ultram) AdvReac Other Verified 11/11/24 11:09 Surgical History History of cardiac catheterization Hx of discectomy Hx of appendectomy Hx of hysterectomy History of coronary artery stent placement Hx of total knee arthroplasty Hx of total knee arthroplasty Social History Smoking Status: Never smoker Audit: Pertinent Findings Pertinent Findings EKG Perinent findings: October 30, 2019. Sinus tachycardia 102 bpm. Left axis deviation. Minimal voltage criteria for LVH. Septal infarct, age undetermined. Recommendation Anesthesia Recommendation Anesthesia recommendation: OPTIMIZED for anesthesia
[2024-11-14] VITALS (8 sets, daily range): BP systolic 116–138; BP diastolic 67–85; PULSE 81–91; RESP 14–16; TEMP 36.5–37; O2SAT 91–97
[2024-11-14] MEDS: Lactated Ringers 1,000 ML 15 ML IV (09:34)
--- NOTE | 2024-11-14 09:37 | PCM.PRE.AN2 ---
ASA Classification* ASA Classification ASA Classification: 3 Assessment & Plan Anesthesia* Anesthesia Assessment Anesthesia Assessment: Discussed sedation and/or anesthesia options, risks, benefits, and alternatives with patient/parents/legal guardian/POA. Questions invited. The patient/parents/legal guardian/POA seems to understand and agrees to proceed with anesthesia plan. Reviewed the physical assessment, medical history, allergy history and patient home medications list prior to surgery/procedure/anesthetic and documented any changes. Performed airway and anesthesia risk assessments. Anesthesia Type Anesthesia Type: MAC History Source History Obtained from:: Patient and Chart Anesthesia Focused Assessment* Temperature: 98.5 F Pulse Rate: 90 Blood Pressure: 120/67 Respiratory Rate: 16 Pulse Ox: 93 Oxygen Delivery Method: Room Air Airway Assessment Mouth opens: 2 cm Mallampati Score: III Teeth Condition: Intact Neck Range of motion (ROM): Limited ROM Labs Anesthesia Preop lab: CBC WBC 4.9 K/mm3 (4.4-11.0) 08/16/24 06:02 08/16/24 RBC 4.48 M/mm3 (4.2-5.4) 08/16/24 06:02 08/16/24 Hgb 13.2 g/dL (12.0-15.0) 08/16/24 06:02 08/16/24 Hct 41.0 % (37-47) 08/16/24 06:02 08/16/24 Plt Count 133 K/mm3 (150-450) L 08/16/24 06:02 08/16/24 CHEMISTRY Potassium 3.9 mmol/L (3.3-5.1) 08/16/24 06:02 08/16/24 Sodium 141 mmol/L (133-145) 08/16/24 06:02 08/16/24 Magnesium 2.2 mg/dL (1.6-2.6) 10/12/23 05:10 10/12/23 BUN 19 mg/dL (4-19) 08/16/24 06:02 08/16/24 Creatinine 0.62 mg/dL (0.70-1.20) L 08/16/24 06:02 08/16/24 Glucose 88 mg/dL (70-99) 08/16/24 06:02 08/16/24 TSH 1.960 uIU/mL (0.358-3.740) 06/13/24 05:12 06/13/24 COAG PT 12.5 SECONDS (11.7-14.9) 01/13/17 10:52 01/13/17 Pre-Assessment Diagnosis/Proposed Procedure Planned Operative Procedure(s): RIGHT SIDED THORACIC MEDIAL BRANCH BLOCK T 8,9,10,11 UNDER FLUOROSCOPY Anesthesia History 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 When Was Last Pacemaker Check QUESTION #4 FULL TEXT: You/Your Family Experience fever (hyperthermia) with Anesthesia Last Oral Intake Last Oral intake: Last Oral Intake NPO since 00:00 11/14/24 09:23 Meds taken in AM with sips of No 11/14/24 09:23 water? Meds patient instructed to take am of surgery PONV PONV - narrow gauge brakeman: PONV - narrow gauge brakeman Female Yes 11/11/24 11:25 HX of Motion Sickness No 11/11/24 11:25 HX of N/V After Surgery No 11/11/24 11:25 Non-Smoker Yes 11/11/24 11:25 Duration of Surgery greater No 11/11/24 11:25 than 60 minutes Number of Risk Factors 2 11/11/24 11:25 PONV Score Moderate Risk 11/11/24 11:25 Height & Weight Height & Weight: Anesthesia: Height & Weight Height 5 ft 5 in 11/14/24 09:23 Respiratory Assessment Respiratory Assessment - narrow gauge brakeman: Respiratory Tract Infection Hx - narrow gauge brakeman Hx Respiratory Tract Infection No 11/11/24 11:25 STOP Sleep Apnea STOP Sleep Apnea - narrow gauge brakeman: STOP Sleep Apnea - narrow gauge brakeman Hx Hypertension No 11/11/24 11:25 Hx Sleep Apnea No 11/11/24 11:25 CPAP Yes: NOT AWARE IF PATIENT 12/14/23 07:59 STILL USES BIPAP No 11/11/24 11:25 Do you snore loudly (louder No 11/11/24 11:25 than talking or can be heard Do you often feel tired/ No 11/11/24 11:25 fatigued/ sleepy during daytime? Has anyone observed you stop No 11/11/24 11:25 breathing during sleep? STOP Results Negative 11/11/24 11:25 QUESTION #5 FULL TEXT : Do you snore loudly (louder than talking or can be heard through closed doors)? 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 Specify any problems Hx of Preganancy in last 3 No 11/11/24 11:25 Months Nurse Filling Out Transfusion DSCHRIBER 11/11/24 11:25 & Questions: Date: 11/11/24 11/11/24 11:25 Time: 11:28 11/11/24 11:25 Patient unable to answer at this time (ie. confused, unrespo /Reproduction History /Reproductive History - narrow gauge brakeman: /Reproductive Hx- narrow gauge brakeman Hx Now No 11/11/24 11:25 Gestational Age (in weeks): EDC: Hx Hx Para Hx Section SAB No 11/11/24 11:25 Active Medications Active Medications: Current Medications Generic Name Dose Route Start Last Admin Trade Name Freq PRN Reason Stop Dose Admin Lactated Ringer's 1,000 mls @ 15 mls/hr 11/14/24 09:00 11/14/24 09:34 IV 15 mls/hr .Q48H VANESSA Administration PFSH Medical History (Updated 11/11/24 @ 11:34 by Savannah Gallegos) Cardiology follow-up encounter History of CHF (congestive heart failure) Restless legs Asthma ASHD (arteriosclerotic heart disease) PVD (peripheral vascular disease) Cognitive impairment Incontinence of bowel Incontinence of urine Lives in group home Neuropathy Uses wheelchair Spasmodic torticollis Painful cervical ROM Parkinson's disease Non-smoker Pain Depression Anxiety Post-menopausal Bipolar disorder Thyroid disease Arthritis Gastric reflux Home Medications ?Medication ?Instructions ?Recorded ?Last Taken ?Type potassium chloride 10 mEq 10 meq PO DAILY 03/29/15 Unknown History tablet,extended release(part/cryst) aspirin 81 mg chewable tablet 81 mg PO DAILY@0800 10/30/19 Unknown History risperidone 0.5 mg tablet 0.5 mg PO QHS 10/30/19 Unknown History baclofen 5 mg tablet 10 mg PO QHS 09/06/21 Unknown History hydrochlorothiazide 25 mg tablet 25 mg PO DAILY 09/06/21 Unknown History polyethylene glycol 3350 17 4 g PO QHS 09/06/21 Unknown History gram/dose oral powder (Miralax) sennosides 8.6 mg capsule (senna) 17.2 mg PO DAILY 09/06/21 Unknown History carbidopa ER 50 mg-levodopa 200 mg 1 tab PO TID 04/10/23 11/14/24 History tablet,extended release memantine 10 mg tablet 10 mg PO BID 04/10/23 04/13/23 History duloxetine 20 mg capsule,delayed 40 mg PO DAILY 06/13/24 Unknown History release sprinkle gabapentin 300 mg capsule 300 mg PO QHS 06/13/24 Unknown History levothyroxine 100 mcg capsule 100 mcg PO QHS 06/13/24 Unknown History sertraline 25 mg tablet 25 mg PO DAILY 06/13/24 Unknown History sertraline 50 mg tablet 50 mg PO DAILY 06/13/24 Unknown History ammonium lactate 12 % lotion 1 applic topical QHS 11/11/24 Unknown History (AmLactin) carbidopa 25 mg-levodopa 100 mg 1 tab PO TID 11/11/24 11/14/24 History tablet (Sinemet) divalproex 125 mg tablet,delayed 125 mg PO DAILY 11/11/24 Unknown History release divalproex 125 mg tablet,delayed 500 mg PO QHS 11/11/24 Unknown History release fluticasone propionate 50 2 spray intranasal QHS 11/11/24 Unknown History mcg/actuation nasal spray,suspension hydrocodone-acetaminophen 5-325mg 1 tab PO Q6H PRN pain 11/11/24 Unknown History 5mg-325mg hydrocortisone 2.5 % topical cream 1 applic topical BID PRN skin 11/11/24 Unknown History irritation lurasidone 40 mg tablet 40 mg PO QPM 11/11/24 Unknown History menthol 1 applic topical QHS 11/11/24 Unknown History mirabegron 25 mg tablet,extended 25 mg PO DAILY 11/11/24 Unknown History release 24 hr (Myrbetriq) Allergy/AdvReac Type Severity Reaction Status Date / Time bee venom protein (honey bee) Allergy Severe Anaphylaxis Verified 11/14/24 09:35 atorvastatin (From Lipitor) Allergy unknown Verified 11/14/24 09:35 Iodine and Iodide Containing Allergy unknown Verified 11/14/24 09:35 Produc tramadol (From Ultram) AdvReac Other Verified 11/14/24 09:35 Surgical History History of cardiac catheterization Hx of discectomy Hx of appendectomy Hx of hysterectomy History of coronary artery stent placement Hx of total knee arthroplasty Hx of total knee arthroplasty Social History Smoking Status: Never smoker Review of Systems (Anesthesia) ROS Narrative System reviewed and no additional complaints, except as documented.
--- NOTE | 2024-11-14 09:47 | RAD_ITS ---
EXAM: XR Thoracic Spine, 2 Views CLINICAL INDICATION: RT SIDE THORACIC MEDIAL BRANCH BLOCK T8 T9 T10 T11 TECHNIQUE: Frontal and lateral views of the thoracic spine. COMPARISON: No relevant prior studies available. FINDINGS: A total of 3 fluoroscopic images were obtained. Total fluoroscopy time 9.7 seconds. Total radiation dose 2.2 mGy. RAD/Thoracic Spine 2 Views IMPRESSION: Fluoroscopic guidance was used intraoperatively. Please refer to operative not e for further details. Reading Location: [facility]
[2024-11-14] MEDS: Lidocaine 1% (5 ml sdv) 5 ML Vial (09:50)
--- NOTE | 2024-11-14 10:02 | PCM.POST.ANE ---
Anesthesia: Postop Eval I Current Vital Signs Temperature: 97.7 F Pulse Rate: 81 Blood Pressure: 116/71 Respiratory Rate: 14 Pulse Ox: 97 Oxygen Delivery Method: Room Air Assessment Airway patent: Yes Spontaneous unlabored respirations: Yes Mental status: Awake and Calm nausea: No Vomiting: No Anesthesia Complication: No Fluid Hydration Crystalloid volume administer (ml): 200 Total IV fluid infused: 200 Progress Note Anesthesia document: Postop Eval 1 completed: Yes
--- NOTE | 2024-11-14 11:02 | PCM.OPRPT ---
Operative Report (Standard) Operative Information Date of Procedure: 11/14/24 Pre-Operative Diagnosis: Thoracic spondylosis, thoracic degenerative disc disease, thoracic facet arthropathy Post-Operative Diagnosis: Thoracic spondylosis, thoracic degenerative disc disease, thoracic facet arthropathy Surgery/Procedure Performed: Right sided thoracic medial branch block at T8, T9, T10 under fluoroscopic guidance code enforcement officer: No Type of Anesthesia: Local MAC RN Documented Start/Stop Times: Operation Date: 11/14/24 10:30 Case Time Into Pre-Op 11/14/24 08:54 Anesthesia Start 11/14/24 09:44 Into Room 11/14/24 09:44 Procedure Start 11/14/24 09:50 Procedure End 11/14/24 09:53 Anesthesia End 11/14/24 09:57 Into Recovery 11/14/24 09:57 Out of Room 11/14/24 09:57 Out of Recovery 11/14/24 10:13 Into Phase II Recovery 11/14/24 10:14 Procedure Start Time: 11:03 Procedure Stop Time: 11:03 Select all DRAINS/GRAFTS/IMPLANTS that apply: None Estimated Blood Loss: 1 Specimen collected: No Description of surgery: PROCEDURE PERFORMED: Right sided thoracic medial branch block at T8, T9, T10 ANESTHESIA: MAC. BLOOD LOSS: Minimal. COMPLICATIONS: None. DESCRIPTION OF PROCEDURE: History and physical of today was reviewed. Risks and benefits of the procedure were explained. The patient understood and agreed to proceed. Informed consent was obtained. IV inserted per routine protocol. The patient was taken to the operating room and placed in the prone position with a pillow positioned underneath the chest. The mid back area was prepped and draped in a sterile fashion using iodine x3. Under fluoroscopy guidance on AP view, the T8 through T12 vertebral bodies were visualized. The skin and subcutaneous tissue was anesthetized with approximately 5 mL of 1% lidocaine using a 25-gauge regular needle. Under direct visualization on fluoroscopy, at approximately 15-degree angle, starting on the right T8, ending on the right T11, passing through the T9 and T10, using a 22-gauge 3-1/2-inch spinal needle, the needle was passed through the skin. The tip of the needle was maneuvered and directed towards the epiphyseal junction of each corresponding vertebra. Once the tip of the needle was at the vicinity of the medial branch and in contact with the bone, the needle was pulled approximately 2 mm off the bone. After negative aspiration for blood or CSF and confirmation on AP as well as oblique view and lateral view, a total of 6 mL of preservative-free 0.25% Marcaine with 80 mg of Depo-Medrol was injected in divided doses between those four levels. The needles were then removed intact. The patient experienced no sign or symptoms of intrathecal or intravascular injection. The patient experienced no paresthesia. The procedure was completed without any apparent difficulty or any complications. The patient appeared to tolerate it well. ASSESSMENT AND PLAN: This is an 84-year-old female with thoracic spondylosis, thoracic degenerative disc disease, thoracic facet arthropathy status post right-sided thoracic medial branch block at T8-T10, patient will continue her current medications, patient will follow-up in approximately 2 weeks for reevaluation. Surgical Findings: 1 Complications Complications: No Admit VTE Documentation VTE Present on Admission: No VTE Mechan Device Prophylaxis: None VTE Pharm Prophylaxis ordered?: No
--- NOTE | 2024-11-14 14:00 | POSTOPAN2_ITS ---
Anesthesia Postop Eval I Sum Postop Eval Completion status Anesthesia document: Postop Eval 1 completed: Yes Anesthesia Postop Eval I Summary Anesthesia Postop Eval I Summary: Anesthesia Postop Eval I: Assessment Summary Airway patent Yes 11/14/24 10:02 COMPOSITE BOND [email or web address] Spontaneous unlabored Yes 11/14/24 10:02 COMPOSITE BOND [email or web address] respirations Mental status Awake,Calm 11/14/24 10:02 COMPOSITE BOND [email or web address] nausea No 11/14/24 10:02 COMPOSITE BOND [email or web address] Vomiting No 11/14/24 10:02 COMPOSITE BOND [email or web address] Anesthesia Postop Eval I: Fluid Summary Crystalloid volume administer 200 11/14/24 10:02 COMPOSITE BOND [email or web address] (ml) Colloids volume administered ( ml) Blood Product volume administered (ml) Total IV fluid infused 200 11/14/24 10:02 COMPOSITE BOND [email or web address] Anesthesia Postop Eval I: Summary Notes Anesthesia Complication No 11/14/24 10:02 COMPOSITE [email or web address] [email or web address] Anesthesia Complication Comment: Post-operative progress note Anesthesia: Postop Eval II Evaluation Mental status: Awake and Calm Pain Level: 2 nausea: No Vomiting: No Complications Anesthesia Complication: No
--- NOTE | 2024-11-14 14:00 | PCM.POSTANE2 ---
Anesthesia Postop Eval I Sum Postop Eval Completion status Anesthesia document: Postop Eval 1 completed: Yes Anesthesia Postop Eval I Summary Anesthesia Postop Eval I Summary: Anesthesia Postop Eval I: Assessment Summary Airway patent Yes 11/14/24 10:02 [email or web address] Spontaneous unlabored Yes 11/14/24 10:02 [email or web address] respirations Mental status Awake,Calm 11/14/24 10:02 [email or web address] nausea No 11/14/24 10:02 [email or web address] Vomiting No 11/14/24 10:02 [email or web address] Anesthesia Postop Eval I: Fluid Summary Crystalloid volume administer 200 11/14/24 10:02 [email or web address] (ml) Colloids volume administered ( ml) Blood Product volume administered (ml) Total IV fluid infused 200 11/14/24 10:02 [email or web address] Anesthesia Postop Eval I: Summary Notes Anesthesia Complication No 11/14/24 10:02 [email or web address] Anesthesia Complication Comment: Post-operative progress note Anesthesia: Postop Eval II Evaluation Mental status: Awake and Calm Pain Level: 2 nausea: No Vomiting: No Complications Anesthesia Complication: No
== END 2024-11-14 11:09 | disposition home or self-care (01) ==
LOC: SDC 08:53 → AC 08:54
PROVIDERS: PCP Family Medicine; Referring Provider Anesthesiology Pain Medicine; Visit Provider Anesthesiology Pain Medicine
PROC: 3E0S3BZ Introduction of Anesthetic Agent into Epidural Space, Percutaneous Approach (ICD-10-PCS; CPT 62322; principal; 2024-11-14 10:25)
DX: M47.814 Spondylosis without myelopathy or radiculopathy, thoracic region (principal); G20.A1 Parkinson's disease without dyskinesia, without mention of fluctuations; M51.34 Other intervertebral disc degeneration, thoracic region; M46.94 Unspecified inflammatory spondylopathy, thoracic region; I25.10 Atherosclerotic heart disease of native coronary artery without angina pectoris; Z95.5 Presence of coronary angioplasty implant and graft; Z79.82 Long term (current) use of aspirin; Z79.899 Other long term (current) drug therapy
CPT/HCPCS: 64491; 64492; 64490; 72070